=== PATIENT | female | born 1950 | race Caucasian/White ===

== ENCOUNTER → 2020-08-30 19:52 | Outpatient (ROUT) | payer MEDICARE, SELFPAY ==
[2020-08-30 20:06] LABS: Add Manual Diff / Slide Review NO; Basophils Absolute Auto 100 /uL (0-100); Eosinophils Absolute Auto 200 /uL (0-450); Eosinophils Percent Auto 2.9 % (2-4); Hematocrit 40.1 % (36-46); Hemoglobin 13.6 g/dL (12.0-16.0); Lymphocytes Absolute Auto 1600 /uL (1100-4500); Lymphocytes Percent Auto 24.9 % (25-40); Mean Corpuscular HGB Conc 33.9 % (30-36); Mean Corpuscular Hemoglobin 31.9 PG (26-34); Mean Corpuscular Volume 94.1 fL (80-100); Monocytes Absolute Auto 600 /uL (0-900); Monocytes Percent Auto 9.6 % (3-14); Neutrophils Absolute Auto 4000 /uL (1500-7000); Neutrophils Percent Auto 61.6 % (50-75); Platelet Count 294 X10^3/uL (150-400); Red Blood Cell Count 4.27 X10^6/uL (4.0-5.2); Red Cell Distribution Width 12.3 % (11.6-14.8); White Blood Cell Count 6.5 X10^3/uL (4.5-11.0)
[2020-08-30 20:16] LABS: Alanine Aminotransferase 19 IU/L (<35); Albumin 4.3 g/dL (3.5-5.0); Albumin Globulin Ratio 1.7 (1.0-2.8); Alkaline Phosphatase 76 U/L (38-126); Aspartate Aminotransferase 24 IU/L (14-36); BUN Creatinine Ratio 34.3 (6-22); Bilirubin Total 0.4 mg/dL (0.2-1.3); Blood Urea Nitrogen 24 mg/dL (7-17); Calcium 9.6 mg/dL (8.4-10.2); Carbon Dioxide 29 mmol/L (22-32); Chloride 104 mmol/L (98-107); Estimated Glomerular Filt Rate > 60.0 mL/min (>60); Globulin 2.6 g/dL (1.7-4.1); Glucose 95 mg/dL (80-110); HEMOLYSIS < 15 (0-50); Lipase 161 U/L (23-300); Potassium 3.9 mmol/L (3.4-5.1); Sodium 138 mmol/L (137-145); Total Protein 6.9 g/dL (6.3-8.2)
== END ==
PROVIDERS: Visit Provider Student in an Organized Health Care Education/Training Program
DX: R19.5 Other fecal abnormalities (principal); R10.30 Lower abdominal pain, unspecified; E78.00 Pure hypercholesterolemia, unspecified
CPT/HCPCS: 80053; 83690; 85025

== ENCOUNTER → 2020-12-30 09:31 | Outpatient (CLI) | payer MEDICARE, SELFPAY ==
[2020-12-30] MEDS: COVID-19 VACC, Ad26(JANSSEN)/PF 0.5 ML IM (09:42)
== END ==
PROVIDERS: Visit Provider Internal Medicine
DX: Z23 Encounter for immunization (principal)
CPT/HCPCS: 0031A; 91303

== ENCOUNTER → 2021-01-03 14:20 | Outpatient (CLI) | payer MEDICARE, SELFPAY ==
--- NOTE | 2021-01-03 | DI.RAD.S_ITS ---
PROCEDURE: XR ANKLE LT MIN 3V INDICATIONS: Pain in right ankle and joints of right foot TECHNIQUE: 3 views of the ankle were acquired. COMPARISON: None. FINDINGS: Bones: No acute fracture identified. Scattered degenerative subchondral sclerosis and spurring. Tibiotalar joint degeneration with mild joint space narrowing. Chronic fracture deformity of the tibia plantar calcaneal spur. Subchondral lucency involving the lateral talar dome which could reflect degenerative cystic change versus osteochondral defect. Soft tissues: No tibiotalar joint effusion. Achilles tendon appears normal. IMPRESSION: Extensive degenerative changes and posttraumatic sequela as above. If the patient's pain or other symptoms persist, consider further evaluation with MRI Dictated by: Ahmet Martin M.D. on 01/03/2021 at 15:39 Approved by: Ahmet Martin M.D. on 01/03/2021 at 15:41
--- NOTE | 2021-01-03 | DI.RAD.S_ITS ---
PROCEDURE: XR ANKLE RT MIN 3V INDICATIONS: Pain in right ankle and joints of right foot TECHNIQUE: 3 views of the ankle were acquired. COMPARISON: None. FINDINGS: Bones: No fracture. Scattered degenerative subchondral sclerosis and spurring. Severe tibiotalar degenerative joint disease. Chronic appearing also projecting at the tip the lateral malleolus. Soft tissues: No tibiotalar joint effusion. Achilles tendon appears normal. IMPRESSION: Severe tibiotalar joint degeneration. Large chronic appearing ossicle (or remote fracture fragment) projects at the tip of the lateral malleolus. Dictated by: Ahmet Martin M.D. on 01/03/2021 at 15:41 Approved by: Ahmet Martin M.D. on 01/03/2021 at 15:42
== END ==
PROVIDERS: PCP Student in an Organized Health Care Education/Training Program; Referring Provider Student in an Organized Health Care Education/Training Program; Visit Provider Student in an Organized Health Care Education/Training Program
DX: M25.571 Pain in right ankle and joints of right foot (principal); M25.572 Pain in left ankle and joints of left foot; M19.072 Primary osteoarthritis, left ankle and foot; M19.071 Primary osteoarthritis, right ankle and foot; M77.32 Calcaneal spur, left foot; S82.202S Unspecified fracture of shaft of left tibia, sequela
CPT/HCPCS: 73610

== ENCOUNTER → 2021-02-07 10:40 | Outpatient (CLI) | payer MEDICARE, SELFPAY ==
--- NOTE | 2021-02-07 | DI.MG.S_ITS ---
BILATERAL DIGITAL SCREENING MAMMOGRAM 3D/2D WITH CAD: 02/07/2021 CLINICAL: Routine screening. Family history of breast cancer. Comparison is made to exams dated: 04/06/2017 mammogram, 11/30/2015 mammogram, and 09/28/2014 mammogram - [facility]. There are scattered fibroglandular elements in both breasts. Current study was also evaluated with a Computer Aided Detection (CAD) system. No significant masses, calcifications, or other findings are seen in either breast. There has been no significant interval change. IMPRESSION: NEGATIVE There is no mammographic evidence of malignancy. A 1 year screening mammogram is recommended. This exam was interpreted at Station ID: [id number]. NOTE: For mammograms, a report in lay terms will be sent to the patient. Approximately 15% of breast malignancies will not be visualized mammographically. In the management of a palpable breast mass, a negative mammogram must not discourage biopsy of a clinically suspicious lesion. Electronically Signed By: Carroll guthrie/jose:02/07/2021 11:20:38 letter sent: Normal Exam ACR BI-RADS Category 1: Negative 3341F
== END ==
PROVIDERS: PCP Student in an Organized Health Care Education/Training Program; Referring Provider Student in an Organized Health Care Education/Training Program; Visit Provider Student in an Organized Health Care Education/Training Program
DX: Z12.31 Encounter for screening mammogram for malignant neoplasm of breast (principal); Z80.3 Family history of malignant neoplasm of breast
CPT/HCPCS: 77063; 77067

== ENCOUNTER 2021-09-28 14:39 | Emergency (ER) | payer MEDICARE, SELFPAY ==
[2021-09-28 14:48] VITALS: BP 166/95; PULSE 95; RESP 24; TEMP 36.6; O2SAT 100
[2021-09-28 15:13] LABS: COVID19 -Nasal RAPID Negative (Negative)
== END 2021-09-28 18:31 | disposition left against medical advice (07) ==
PROVIDERS: Emergency Provider Emergency Medicine; PCP Student in an Organized Health Care Education/Training Program
DX: Z53.21 Procedure and treatment not carried out due to patient leaving prior to being seen by health care provider (principal); Z20.822 Contact with and (suspected) exposure to COVID-19
CPT/HCPCS: 87635; 99281; C9803

== ENCOUNTER → 2022-01-25 12:14 | Outpatient (CLI) | payer MEDICARE, SELFPAY ==
[2022-01-25 13:36] LABS: Influenza A - CEPHEID Flu A NEGATIVE (NEGATIVE); Influenza B - CEPHEID Flu B NEGATIVE (NEGATIVE)
[2022-01-25 13:48] LABS: COVID-19 CEPHEID PCR (VTM/NP) Negative (Negative)
== END ==
PROVIDERS: PCP Student in an Organized Health Care Education/Training Program; Visit Provider Nurse Practitioner Family
DX: R11.0 Nausea (principal)
CPT/HCPCS: 0240U

== ENCOUNTER → 2022-03-28 12:55 | Outpatient (CLI) | payer MEDICARE, SELFPAY ==
--- NOTE | 2022-03-28 | DI.MG.S_ITS ---
BILATERAL DIGITAL SCREENING MAMMOGRAM 3D/2D WITH CAD: 03/28/2022 CLINICAL: Routine screening. Family history of breast cancer. Comparison is made to exams dated: 02/07/2021 mammogram - [facility], 04/06/2017 mammogram, 08/07/2016 mammogram, and 03/17/2015 mammogram - [facility]. There are scattered fibroglandular elements in both breasts. Current study was also evaluated with a Computer Aided Detection (CAD) system. No significant masses, calcifications, or other findings are seen in either breast. There has been no significant interval change. IMPRESSION: NEGATIVE There is no mammographic evidence of malignancy. A 1 year screening mammogram is recommended. Based on the Tyrer Cuzick model (a risk assessment model) the patient's lifetime risk is 7.6% and her 10 year risk is 4.9%. According to the ACR, ACS, and NCCN guidelines, an annual breast MRI exam along with mammogram is recommended if the patient's lifetime risk is 20% or greater. This exam was interpreted at Station ID: [id number]. NOTE: For mammograms, a report in lay terms will be sent to the patient. Approximately 15% of breast malignancies will not be visualized mammographically. In the management of a palpable breast mass, a negative mammogram must not discourage biopsy of a clinically suspicious lesion. Electronically Signed By: Mathew domínguez/jose:03/28/2022 17:53:24 letter sent: Normal Exam ACR BI-RADS Category 1: Negative 3341F
== END ==
PROVIDERS: PCP Student in an Organized Health Care Education/Training Program; Referring Provider Student in an Organized Health Care Education/Training Program; Visit Provider Student in an Organized Health Care Education/Training Program
DX: Z12.31 Encounter for screening mammogram for malignant neoplasm of breast (principal); Z80.3 Family history of malignant neoplasm of breast
CPT/HCPCS: 77063; 77067

== ENCOUNTER 2023-03-19 12:30 | Outpatient (RCR) | payer MEDICARE, SELFPAY ==
--- NOTE | 2022-12-25 19:56 | PT.OIE ---
Current Diagnoses Presence of right artificial ankle joint (12/25/22) Visit Care Team Role Provider Type Niki Cerda PA-C Family Provider Physician Power Generation Technician Primary Care Provider Specialty: Medical Address: [address] [place] [address], [place], [address] Email: [email or web address] DO Attending Provider Non-Staff Referring Provider Specialty: Orthopedics Address: [address] [place] [address], [place], [address] Email: Physical Therapy Initial Evaluation PT-OP-A Visit Information Start: 12/21/22 18:10 Freq: Status: Active Protocol: Document 12/25/22 11:19 LRN (Rec: 12/25/22 12:32 LRN [id number]) Out-Patient Physical Therapy Visit Information Visit Information Visit Type Initial Evaluation Visit Note Bathroom break to start Visit Start Time 11:21 Visit Stop Time 12:20 Total Visit Minutes 59 Visit Number 1 Evaluation Information Evaluation Date 12/25/22 Precautions Precautions Pt reports she was told no ankle IV/EV. Referral instructions of: modalities, progressive resistance ex's including ecc strengtheing, proprioceptive re-education, avoid excessive plantarflexion /inversion. Awaiting protocol from [facility] in [place] for s/p R ankle replacement and Brostrom lateral ligament repair. PT-OP-B Current Condition Start: 12/21/22 18:10 Freq: Status: Active Protocol: Document 12/25/22 11:19 LRN (Rec: 12/25/22 12:32 LRN [id number]) Current Condition History of Current Condition Onset Date 11/06/22 Current Complaints Constant ache in the R ankle and need to transition from walking boot. History of Current Condition 11/06/22 R ankle replacement and Brostrom lateral ligament repair, at [facility] in [place], [place]. Pt reports spending one night in hospital before discharge home. Pt's R foot has been in a splint/NWBing for 2 weeks and then was casted/NWBing for 2 more weeks before being placed in a walking boot brace . Pt is now 7 weeks post- operation. States she is now supposed to transition to a soft brace but first needs to obtain one. She states she is walking around the house and the yard without an assistive device, and has walked without her walking boot in the house . With the walking boot she can't get up/down from the ground to do gardening very well, stating is doesn't hurt but just difficult. She tolerates ~3 hrs of gardening, before the ankle aches, requiring her to go in to elevate and ice the R ankle. States she is used to being very active with her gardening and horse training, but currently is staying away from the horse for obvious reasons . Future Testing and Treatments Planned Next MD visit: 3 weeks. Treatment Goals Patient/Caregiver Goals Pt is to get back to what she was doing before. Example: get up /don off the ground, strengthen the legs (wasn't exercising before the surgery because of pain). To function better: step in/out of tub with hand hold assist, and stand for showers, walk better to be able to walk up and down her road (1/2 mile = half way down the road), and able tolerate incline ambulation ( driveways). Tolerate gardening for 4-5 hours. Prior Functional Status Baseline Function- ADL's Independent Baseline Function- Mobility Independent Baseline Function- Recreation/Hobbies Working with her horse, requires running or walking fast to get out of the horse's way. Idea is to train the horse to ride. Gardens constantly (kneel, prune trees, goes up/down ladders) Current Functional Impairments (Reported) Functional Limitations- ADL's Independent. Functional Limitations- Mobility/Gait Ambulates with walking boot and antalgic gait without assistive device, independently. R ankle pain with walking. Functional Limitations- Recreation/ Not able to train her horse. Hobbies Not able to garden (kneel, prune trees, taverse up/down ladders) Personal Factors Other Personal Factors That May Effect Lives on [facility], is an Therapy/Recovery active individual who is an avid ad taker, and is wanting to go back to training her horse for riding. PT-OP-C Subjective Start: 12/21/22 18:10 Freq: Status: Active Protocol: Document 12/25/22 11:19 LRN (Rec: 12/25/22 12:32 LRN [id number]) OP-PT Subjective Patient Comments Patient Comments Next MD visit: 3 weeks. States she was told NO R ankle IV/EV ROM to be performed. Patient Questionnaires Foot & Ankle Ability Measure- ADL and Sports FAAM-ADL Score 46 FAAM-ADL Impairment 40 to 59% Impaired (Score 33- 49) FAAM-Sport Score 1 FAAM-Sport Impairment 80 to 99% Impaired (Score 1-5) Lower Extremity Functional Scale LEFS Score 35 LEFS Impairment 40 to 59% Impaired (Score 32- 47) OP-PT Pain Assessment Pain Assessment Grid Paper Pain Assessment Grid Completed Yes Location R ankle Pain Location Details R anterior and lateral ankle Intensity 3 Description Aching,Tightness Frequency Constant Pain Alleviating Factors Cold PT-OP-G Mobility & Gait Start: 12/21/22 18:10 Freq: Status: Active Protocol: Document 12/25/22 11:19 LRN (Rec: 12/25/22 12:32 LRN [id number]) OP Gait Assessment Gait Gait Assistance Required: Independent Distance (Feet) 100 Able to Maintain Weight Bearing Status Yes During Gait Assistive Devices Assistive Device None Orthotic/Prosthetic Devices or Brace: Yes Gait Deviations General Gait Pattern Antalgic,Wide Based Gait Factors Limiting Gait Function Factors Limiting Gait Function Decreased Strength,Limited Range of Motion,Pain,Poor Balance PT-OP-H Neuro Start: 12/21/22 18:10 Freq: Status: Active Protocol: Document 12/25/22 11:19 LRN (Rec: 12/25/22 12:32 LRN [id number]) Sensation Evaluation Gross Sensation Gross Sensation Right LE Impaired Sensation Description Numbness Comments Summary Comments Decreased sensation of R foot along well healed scar ( anterior ankle) and around healing scar on the lateral side of the R foot. Normal sensation on the bottom of the R foot. PT-OP-J Posture/Palpation/Skin Start: 12/21/22 18:10 Freq: Status: Active Protocol: Document 12/25/22 11:19 LRN (Rec: 12/25/22 12:32 LRN [id number]) Posture Evaluation Position Standing L-Spine Posture Decreased Lordosis Shoulder Posture (R) Elevated Pelvis Posture Posterior Tilted,(R) Iliac Crest Superior,(L) ASIS Posterior Weight Distribution Weight Shifted Left Ankle/Foot Posture (L) Neutral,(R) Neutral Foot Arch (L) High Arch,(R) High Arch Comments Posture Comments Bunion bilaterally, Big toe adducted. Palpation Assessment Location R heel Palpation Location R heel Palpation Findings Edema R ankle Palpation Location R ankle joint Palpation Findings Edema,Soft Tissue Tightness, Tenderness Skin Assessment Circumference Measurement L ankle Fig 8 Location L ankle Fig 8 Measurement (Centimeters) 47.5 Comments Ankle is normal in temperature and skin color. R ankle Fig 8 Location R ankle Fig 8 Measurement (Centimeters) 57 Comments Ankle is warm to touch, swollen, skin shiny and red. PT-OP-K Range of Motion Start: 12/21/22 18:10 Freq: Status: Active Protocol: Document 12/25/22 11:19 LRN (Rec: 12/25/22 12:32 LRN [id number]) Knee Goniometric Range of Motion Knee Right Knee ROM WFL Yes Left Knee ROM WFL Yes Ankle and Foot Goniometric Range of Motion Ankle and Foot Right Active Ankle/Foot ROM WFL No Testing Position Supine Plantarflexion 26 Comments Lack 2 deg's DF with knee extended Deferred testing Ankle IV/EV per pt report to not perform side to side movement. Left Active Ankle/Foot ROM WFL Yes Testing Position Supine Dorsiflexion with Knee Extended 18 Plantarflexion 43 Inversion 25 Eversion 10 Toe Range of Motion Toe Right Great Toe Toe ROM WFL No MTP Flexion Active (degrees) 15 MTP Extension Active (degrees) 22 Left Great Toe Toe ROM WFL Yes MTP Flexion Active (degrees) 60 MTP Extension Active (degrees) 52 PT-OP-M Strength Start: 12/21/22 18:10 Freq: Status: Active Protocol: Document 12/25/22 11:19 LRN (Rec: 12/25/22 12:32 LRN [id number]) Knee Strength Knee Manual Muscle Testing Right Flexion (S2) 5 Normal Extension (L3) 5 Normal Left Flexion (S2) 5 Normal Extension (L3) 5 Normal Ankle/Foot Strength Ankle and Foot Manual Muscle Testing Right Comments Deferred due to recent surgery . Pt was able to demonstrate active DF/PF within available ROM. Left Dorsiflexion (L4) 5 Normal Plantarflexion (S1) 5 Normal Inversion 5 Normal Eversion (S1) 5 Normal Toe Strength Toe Manual Muscle Testing Right Great Toe Flexion 4 Good Extension 5 Normal Left Great Toe Flexion 5 Normal Extension 3 Fair PT-OP-Q Treatments Start: 12/21/22 18:10 Freq: Status: Active Protocol: Document 12/25/22 11:19 LRN (Rec: 12/25/22 12:32 LRN [id number]) Therapeutic Exercises Supine Exercises R Big Toe Supine Exercise Name R Big Toe flex/Ext Side right R Ankle PF/DF Supine Exercise Name R Ankle active PF/DF Side right Self-Care/Home Management Treatment Education Patient Education Pain Management Other Education Discussed results of evaluation, goals, and plan of care (POC). Pt agreeable to goals and POC. Educated pt and discussed use of cold pack to R ankle to decrease increased temperature at the ankle. Activities Self-Care/Home Management Activities I/S pt in increase use of cold pack for pain/edema management. I/S and had pt demonstrate R toe/ankle active flex/ extension. PT-OP-T Assessment and Plan Start: 12/21/22 18:10 Freq: Status: Active Protocol: Document 12/25/22 11:19 LRN (Rec: 12/25/22 12:32 LRN [id number]) Physical Therapy Assessment Rehab Potential Rehabilitation Potential Excellent Evaluation Complexity Number of Personal Factors/Comorbidities 1-2 Number of Body Systems Impaired 4 or More Clinical Presentation at Evaluation Evolving Impairments Impairments Activity Tolerance,Balance, Edema,Functional Mobility,Gait ,Pain,Posture,ROM,Sensation, Soft Tissue Mobility,Strength Goals Five Impairment Decreased R big toe ROM and strength Impairment R big toe MTP AROM: ext: 22 deg's, flex: 15 deg's. L big toe MTP AROM: ext: 52 deg's, flex: 60 deg's. R big toe strength: flex: 4/ 5, ext: 5/5 R big toe strength: flex: 4/ 5, ext: 3/5 Short Term Goal (STG) Improve Big toe flex/ext strength to 5/5. STG Duration 02/09/23 Shelter Goal (LTG) Improve R big toe ext AROM to normal with pt able to walk in normal shoes on level surface with a normal gait. LTG Duration 03/23/23 Four Impairment R ankle Edema Impairment Fig 8 ankle msmt: 57 cm R, 47 .5 cm L Short Term Goal (STG) Decrease R ankle edema with pt able to get up /don off the ground with reported less difficulty. STG Duration 02/09/23 Spot Washer Goal (LTG) Decrease R ankle edema with pt able to tolerate gardening for 4-5 hours. LTG Duration 03/23/23 Three Impairment Decreased R ankle strength Impairment R ankle strength: initially not formally tested. Pt able to partially move DF/PF against gravity within available range; therefore rated 2-/5. Short Term Goal (STG) Improve R ankle with pt able to step in/out of tub with hand support, and safely stand for showers. STG Duration 02/09/23 Shelter Goal (LTG) Improve RLE strength to improve pt ability to walk and improve her tolerance to walk up and down her road (1/2 mile = half way down the road) with tolerable pain. LTG Duration 03/23/23 Two Impairment Decreased R ankle AROM Spot Washer Goal (LTG) Pt will be able tolerate incline ambulation (driveways) with tolerable ankle pain. LTG Duration 03/23/23 One Impairment Lacks appropriate self care HEP. Short Term Goal (STG) Pt will be educated in self care edema/pain mangement. STG Duration 01/05/23 Spot Washer Goal (LTG) Pt will be educated in a self care HEP of R ankle ROM and strengthening ex's and general LE strengthening exercises. LTG Duration 03/23/23 Assessment Summary Assessment Pt is a 72 year old active female who presents 7 weeks post op R ankle replacement and Brostrom lateral ligament repair. The pt attends without a rehabilitation protocol but stating she is not to do ankle IV/EV ROM exercises. The pt demonstrates an independent but dysfunctional circumduction type gait pattern of the RLE as expected with her R foot in a walking boot. She does not require an assistive device to ambulate. Without the walking boot the pt is able to stand safely with what appears to be equal weightbearing through the LE' s. She has been walking in her home sometimes without the walking boot and demonstrated a mild antalgic gait without the use of the walking boot. As expected the pt is limited in R ankle ROM and strength as well as restricted mobility and strength of her big toe. The pt reports being generally deconditioned and is looking forward to improving her general strength and endurance and returning to her prior level of function. The pt will benefit from skilled physical therapy to achieve the above stated goals. Physical Therapy Plan Frequency and Duration Frequency of Treatment 2x/Week Plan of Care Start Date 12/25/22 Plan of Care End Date 03/23/23 Therapeutic Interventions Therapeutic Interventions Balance Training,Gait Training ,Home Exercise Program,Manual Therapy,Patient/Caregiver Education,Self-Care/Home Management,Soft Tissue Mobilization,Taping, Therapeutic Activities, Therapeutic Exercises Modalities Cold Pack/Ice Massage,Hot Packs Next Visit Focus/Plan Next Note Type Treatment Note Next Visit Plan Obtain if the referring physician has a R ankle/ lateral ankle repair rehabilitation protocol, otherwise follow referral of: modalities, progressive resistance ex's including ecc strengtheing, proprioceptive re-education. AVOID Excessive PF/IV. Assess stair ambulation, TUG & Functional Test of 2' or 6' walk test or endurance test ( 30 Sec Sit to Stand test). Issue handouts for ankle AROM ex. and self care for edema and pain management. Progress strengthening, and proprioceptive re-education and balance. End CP with LE elevated unless pt choose to ice at home.
--- NOTE | 2023-01-02 16:17 | PT.OTN ---
Current Diagnoses Presence of right artificial ankle joint (01/02/23) Physical Therapy Treatment Note PT-OP-A Visit Information Start: 12/21/22 18:10 Freq: Status: Active Protocol: Document 01/02/23 15:19 LRN (Rec: 01/02/23 16:16 LRN [id number]) Out-Patient Physical Therapy Visit Information Visit Information Visit Type Treatment Note Visit Start Time 15:20 Visit Stop Time 16:10 Total Visit Minutes 50 Visit Number 2 Evaluation Information Evaluation Date 12/25/22 Precautions Precautions Pt reports she was told no ankle IV/EV. Referral instructions of: modalities, progressive resistance ex's including ecc strengtheing, proprioceptive re-education, avoid excessive plantarflexion /inversion. (Referral/protocol from [facility] in [place] for s/p R ankle replacement and Brostrom lateral ligament repair). PT-OP-B Current Condition Start: 12/21/22 18:10 Freq: Status: Active Protocol: Document 12/25/22 11:19 LRN (Rec: 12/25/22 12:32 LRN [id number]) Current Condition History of Current Condition Onset Date 11/06/22 Current Complaints Constant ache in the R ankle and need to transition from walking boot. History of Current Condition 11/06/22 R ankle replacement and Brostrom lateral ligament repair, at [facility] in [place], [place]. Pt reports spending one night in hospital before discharge home. Pt's R foot has been in a splint/NWBing for 2 weeks and then was casted/NWBing for 2 more weeks before being placed in a walking boot brace . Pt is now 7 weeks post- operation. States she is now supposed to transition to a soft brace but first needs to obtain one. She states she is walking around the house and the yard without an assistive device, and has walked without her walking boot in the house . With the walking boot she can't get up/down from the ground to do gardening very well, stating is doesn't hurt but just difficult. She tolerates ~3 hrs of gardening, before the ankle aches, requiring her to go in to elevate and ice the R ankle. States she is used to being very active with her gardening and horse training, but currently is staying away from the horse for obvious reasons . Future Testing and Treatments Planned Next MD visit: 3 weeks. Treatment Goals Patient/Caregiver Goals Pt is to get back to what she was doing before. Example: get up /don off the ground, strengthen the legs (wasn't exercising before the surgery because of pain). To function better: step in/out of tub with hand hold assist, and stand for showers, walk better to be able to walk up and down her road (1/2 mile = half way down the road), and able tolerate incline ambulation ( driveways). Tolerate gardening for 4-5 hours. Prior Functional Status Baseline Function- ADL's Independent Baseline Function- Mobility Independent Baseline Function- Recreation/Hobbies Working with her horse, requires running or walking fast to get out of the horse's way. Idea is to train the horse to ride. Gardens constantly (kneel, prune trees, goes up/down ladders) Current Functional Impairments (Reported) Functional Limitations- ADL's Independent. Functional Limitations- Mobility/Gait Ambulates with walking boot and antalgic gait without assistive device, independently. R ankle pain with walking. Functional Limitations- Recreation/ Not able to train her horse. 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 PT-OP-C Subjective Start: 12/21/22 18:10 Freq: Status: Active Protocol: Document 01/02/23 15:19 LRN (Rec: 01/02/23 16:16 LRN [id number]) OP-PT Subjective Patient Comments Patient Comments Stopped wearing the walking boot a couple days ago per MD' s previous instructions. Will see MD towards end of the month. States the MD office had sent protocol. s/p surgery almost 4 weeks. PT-OP-G Mobility & Gait Start: 12/21/22 18:10 Freq: Status: Active Protocol: Document 12/25/22 11:19 LRN (Rec: 12/25/22 12:32 LRN [id number]) OP Gait Assessment Gait Gait Assistance Required: Independent Distance (Feet) 100 Able to Maintain Weight Bearing Status Yes During Gait Assistive Devices Assistive Device None Orthotic/Prosthetic Devices or Brace: Yes Gait Deviations General Gait Pattern Antalgic,Wide Based Gait Factors Limiting Gait Function Factors Limiting Gait Function Decreased Strength,Limited Range of Motion,Pain,Poor Balance PT-OP-H Neuro Start: 12/21/22 18:10 Freq: Status: Active Protocol: Document 12/25/22 11:19 LRN (Rec: 12/25/22 12:32 LRN [id number]) Sensation Evaluation Gross Sensation Gross Sensation Right LE Impaired Sensation Description Numbness Comments Summary Comments Decreased sensation of R foot along well healed scar ( anterior ankle) and around healing scar on the lateral side of the R foot. Normal sensation on the bottom of the R foot. PT-OP-J Posture/Palpation/Skin Start: 12/21/22 18:10 Freq: Status: Active Protocol: Document 12/25/22 11:19 LRN (Rec: 12/25/22 12:32 LRN [id number]) Posture Evaluation Position Standing L-Spine Posture Decreased Lordosis Shoulder Posture (R) Elevated Pelvis Posture Posterior Tilted,(R) Iliac Crest Superior,(L) ASIS Posterior Weight Distribution Weight Shifted Left Ankle/Foot Posture (L) Neutral,(R) Neutral Foot Arch (L) High Arch,(R) High Arch Comments Posture Comments Bunion bilaterally, Big toe adducted. Palpation Assessment Location R heel Palpation Location R heel Palpation Findings Edema R ankle Palpation Location R ankle joint Palpation Findings Edema,Soft Tissue Tightness, Tenderness Skin Assessment Circumference Measurement L ankle Fig 8 Location L ankle Fig 8 Measurement (Centimeters) 47.5 Comments Ankle is normal in temperature and skin color. R ankle Fig 8 Location R ankle Fig 8 Measurement (Centimeters) 57 Comments Ankle is warm to touch, swollen, skin shiny and red. PT-OP-K Range of Motion Start: 12/21/22 18:10 Freq: Status: Active Protocol: Document 12/25/22 11:19 LRN (Rec: 12/25/22 12:32 LRN [id number]) Knee Goniometric Range of Motion Knee Right Knee ROM WFL Yes Left Knee ROM WFL Yes Ankle and Foot Goniometric Range of Motion Ankle and Foot Right Active Ankle/Foot ROM WFL No Testing Position Supine Plantarflexion 26 Comments Lack 2 deg's DF with knee extended Deferred testing Ankle IV/EV per pt report to not perform side to side movement. Left Active Ankle/Foot ROM WFL Yes Testing Position Supine Dorsiflexion with Knee Extended 18 Plantarflexion 43 Inversion 25 Eversion 10 Toe Range of Motion Toe Right Great Toe Toe ROM WFL No MTP Flexion Active (degrees) 15 MTP Extension Active (degrees) 22 Left Great Toe Toe ROM WFL Yes MTP Flexion Active (degrees) 60 MTP Extension Active (degrees) 52 PT-OP-M Strength Start: 12/21/22 18:10 Freq: Status: Active Protocol: Document 12/25/22 11:19 LRN (Rec: 12/25/22 12:32 LRN [id number]) Knee Strength Knee Manual Muscle Testing Right Flexion (S2) 5 Normal Extension (L3) 5 Normal Left Flexion (S2) 5 Normal Extension (L3) 5 Normal Ankle/Foot Strength Ankle and Foot Manual Muscle Testing Right Comments Deferred due to recent surgery . Pt was able to demonstrate active DF/PF within available ROM. Left Dorsiflexion (L4) 5 Normal Plantarflexion (S1) 5 Normal Inversion 5 Normal Eversion (S1) 5 Normal Toe Strength Toe Manual Muscle Testing Right Great Toe Flexion 4 Good Extension 5 Normal Left Great Toe Flexion 5 Normal Extension 3 Fair PT-OP-Q Treatments Start: 12/21/22 18:10 Freq: Status: Active Protocol: Document 01/02/23 15:19 LRN (Rec: 01/02/23 16:16 LRN [id number]) Therapeutic Exercises Supine Exercises Isometric PF Supine Exercise Name Isometric PF Side right Reps/Minutes 3' Isometric DF Supine Exercise Name Isometric DF Side right Reps/Minutes 3' R Big Toe Supine Exercise Name R Big Toe flex/Ext PROM, AROM Side right Reps/Minutes 2' R Ankle PF/DF Supine Exercise Name R Ankle active PF/DF Side right Reps/Minutes 4' Sitting Exercises Ankle garrett's Sitting Exercise Name DF/PF Isometrics Side right Reps/Minutes 5 SH Comments Extra time to explain ex and pt to perform correctly. Manual Therapy Treatment Soft Tissue Mobilization R foot Body Location R dorsal, medial and lateral foot Mobilization Type Myofascial Release,Strumming Intensity/Depth Superficial Body Position Supine: leg on bolster Self-Care/Home Management Treatment Education Patient Education Home Exercise Program Activities Self-Care/Home Management Activities I/S pt in isometric ankle DF/ PF during sitting ex. PT-OP-T Assessment and Plan Start: 12/21/22 18:10 Freq: Status: Active Protocol: Document 01/02/23 15:19 LRN (Rec: 01/02/23 16:16 LRN [id number]) Physical Therapy Assessment Goals Five Impairment Decreased R big toe ROM and strength Impairment R big toe MTP AROM: ext: 22 deg's, flex: 15 deg's. L big toe MTP AROM: ext: 52 deg's, flex: 60 deg's. R big toe strength: flex: 4/ 5, ext: 5/5 R big toe strength: flex: 4/ 5, ext: 3/5 Short Term Goal (STG) Improve Big toe flex/ext strength to 5/5. STG Duration 02/09/23 [facility] Goal (LTG) Improve R big toe ext AROM to normal with pt able to walk in normal shoes on level surface with a normal gait. LTG Duration 03/23/23 Four Impairment R ankle Edema Impairment Fig 8 ankle msmt: 57 cm R, 47 .5 cm L Short Term Goal (STG) Decrease R ankle edema with pt able to get up /don off the ground with reported less difficulty. STG Duration 02/09/23 [facility] Goal (LTG) Decrease R ankle edema with pt able to tolerate gardening for 4-5 hours. LTG Duration 03/23/23 Three Impairment Decreased R ankle strength Impairment R ankle strength: initially not formally tested. Pt able to partially move DF/PF against gravity within available range; therefore rated 2-/5. Short Term Goal (STG) Improve R ankle with pt able to step in/out of tub with hand support, and safely stand for showers. STG Duration 02/09/23 [facility] Goal (LTG) Improve RLE strength to improve pt ability to walk and improve her tolerance to walk up and down her road (1/2 mile = half way down the road) with tolerable pain. LTG Duration 03/23/23 Two Impairment Decreased R ankle AROM [facility] Goal (LTG) Pt will be able tolerate incline ambulation (driveways) with tolerable ankle pain. LTG Duration 03/23/23 One Impairment Lacks appropriate self care HEP. Short Term Goal (STG) Pt will be educated in self care edema/pain mangement. STG Duration 01/05/23 Training And Development Head Goal (LTG) Pt will be educated in a self care HEP of R ankle ROM and strengthening ex's and general LE strengthening exercises. 01/02/23: I/S pt in R ankle AROM and garrett DF/PF ex. LTG Duration 03/23/23 progressed 01/02/23. Assessment Summary Assessment Pt is 8 weeks and a day s/p R ankle replacement and lateral lig repair. Pt ankle was very swollen with immobile tissue to start. Ended therapy with improved STM with wrinkles in the anterolateral region of the R ankle with active DF. Pt gait antalgic with long R step length compare to LLE. Pt needed specific, constant directions during therapy. Physical Therapy Plan Frequency and Duration Frequency of Treatment 2x/Week Plan of Care Start Date 12/25/22 Plan of Care End Date 03/23/23 Next Visit Focus/Plan Next Note Type Treatment Note Next Visit Plan Follow referral of: modalities , progressive resistance ex's including ecc strengthening, proprioceptive re-education. AVOID Excessive PF/IV. Assess stair ambulation, TUG & Functional Test of 2' or 6' walk test or endurance test ( 30 Sec Sit to Stand test). Issue handouts for ankle AROM ex. and self care for edema and pain management. Progress strengthening, and proprioceptive re-education and balance. End CP with LE elevated unless pt choose to ice at home.
--- NOTE | 2023-01-02 16:33 | PT.OTN ---
Current Diagnoses Presence of right artificial ankle joint (01/02/23) Physical Therapy Treatment Note PT-OP-A Visit Information Start: 12/21/22 18:10 Freq: Status: Active Protocol: Document 01/02/23 15:19 LRN (Rec: 01/02/23 16:16 LRN [id number]) Out-Patient Physical Therapy Visit Information Visit Information Visit Type Treatment Note Visit Start Time 15:20 Visit Stop Time 16:10 Total Visit Minutes 50 Visit Number 2 Evaluation Information Evaluation Date 12/25/22 Precautions Precautions Pt reports she was told no ankle IV/EV. Referral instructions of: modalities, progressive resistance ex's including ecc strengtheing, proprioceptive re-education, avoid excessive plantarflexion /inversion. (Referral/protocol from [facility] in [place] for s/p R ankle replacement and Brostrom lateral ligament repair). PT-OP-B Current Condition Start: 12/21/22 18:10 Freq: Status: Active Protocol: Document 12/25/22 11:19 LRN (Rec: 12/25/22 12:32 LRN [id number]) Current Condition History of Current Condition Onset Date 11/06/22 Current Complaints Constant ache in the R ankle and need to transition from walking boot. History of Current Condition 11/06/22 R ankle replacement and Brostrom lateral ligament repair, at [facility] in [place], [place]. Pt reports spending one night in hospital before discharge home. Pt's R foot has been in a splint/NWBing for 2 weeks and then was casted/NWBing for 2 more weeks before being placed in a walking boot brace . Pt is now 7 weeks post- operation. States she is now supposed to transition to a soft brace but first needs to obtain one. She states she is walking around the house and the yard without an assistive device, and has walked without her walking boot in the house . With the walking boot she can't get up/down from the ground to do gardening very well, stating is doesn't hurt but just difficult. She tolerates ~3 hrs of gardening, before the ankle aches, requiring her to go in to elevate and ice the R ankle. States she is used to being very active with her gardening and horse training, but currently is staying away from the horse for obvious reasons . Future Testing and Treatments Planned Next MD visit: 3 weeks. Treatment Goals Patient/Caregiver Goals Pt is to get back to what she was doing before. Example: get up /don off the ground, strengthen the legs (wasn't exercising before the surgery because of pain). To function better: step in/out of tub with hand hold assist, and stand for showers, walk better to be able to walk up and down her road (1/2 mile = half way down the road), and able tolerate incline ambulation ( driveways). Tolerate gardening for 4-5 hours. Prior Functional Status Baseline Function- ADL's Independent Baseline Function- Mobility Independent Baseline Function- Recreation/Hobbies Working with her horse, requires running or walking fast to get out of the horse's way. Idea is to train the horse to ride. Gardens constantly (kneel, prune trees, goes up/down ladders) Current Functional Impairments (Reported) Functional Limitations- ADL's Independent. Functional Limitations- Mobility/Gait Ambulates with walking boot and antalgic gait without assistive device, independently. R ankle pain with walking. Functional Limitations- Recreation/ Not able to train her horse. 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 PT-OP-C Subjective Start: 12/21/22 18:10 Freq: Status: Active Protocol: Document 01/02/23 15:19 LRN (Rec: 01/02/23 16:16 LRN [id number]) OP-PT Subjective Patient Comments Patient Comments Stopped wearing the walking boot a couple days ago per MD' s previous instructions. Will see MD towards end of the month. States the MD office had sent protocol. s/p surgery almost 4 weeks. PT-OP-G Mobility & Gait Start: 12/21/22 18:10 Freq: Status: Active Protocol: Document 12/25/22 11:19 LRN (Rec: 12/25/22 12:32 LRN [id number]) OP Gait Assessment Gait Gait Assistance Required: Independent Distance (Feet) 100 Able to Maintain Weight Bearing Status Yes During Gait Assistive Devices Assistive Device None Orthotic/Prosthetic Devices or Brace: Yes Gait Deviations General Gait Pattern Antalgic,Wide Based Gait Factors Limiting Gait Function Factors Limiting Gait Function Decreased Strength,Limited Range of Motion,Pain,Poor Balance PT-OP-H Neuro Start: 12/21/22 18:10 Freq: Status: Active Protocol: Document 12/25/22 11:19 LRN (Rec: 12/25/22 12:32 LRN [id number]) Sensation Evaluation Gross Sensation Gross Sensation Right LE Impaired Sensation Description Numbness Comments Summary Comments Decreased sensation of R foot along well healed scar ( anterior ankle) and around healing scar on the lateral side of the R foot. Normal sensation on the bottom of the R foot. PT-OP-J Posture/Palpation/Skin Start: 12/21/22 18:10 Freq: Status: Active Protocol: Document 12/25/22 11:19 LRN (Rec: 12/25/22 12:32 LRN [id number]) Posture Evaluation Position Standing L-Spine Posture Decreased Lordosis Shoulder Posture (R) Elevated Pelvis Posture Posterior Tilted,(R) Iliac Crest Superior,(L) ASIS Posterior Weight Distribution Weight Shifted Left Ankle/Foot Posture (L) Neutral,(R) Neutral Foot Arch (L) High Arch,(R) High Arch Comments Posture Comments Bunion bilaterally, Big toe adducted. Palpation Assessment Location R heel Palpation Location R heel Palpation Findings Edema R ankle Palpation Location R ankle joint Palpation Findings Edema,Soft Tissue Tightness, Tenderness Skin Assessment Circumference Measurement L ankle Fig 8 Location L ankle Fig 8 Measurement (Centimeters) 47.5 Comments Ankle is normal in temperature and skin color. R ankle Fig 8 Location R ankle Fig 8 Measurement (Centimeters) 57 Comments Ankle is warm to touch, swollen, skin shiny and red. PT-OP-K Range of Motion Start: 12/21/22 18:10 Freq: Status: Active Protocol: Document 12/25/22 11:19 LRN (Rec: 12/25/22 12:32 LRN [id number]) Knee Goniometric Range of Motion Knee Right Knee ROM WFL Yes Left Knee ROM WFL Yes Ankle and Foot Goniometric Range of Motion Ankle and Foot Right Active Ankle/Foot ROM WFL No Testing Position Supine Plantarflexion 26 Comments Lack 2 deg's DF with knee extended Deferred testing Ankle IV/EV per pt report to not perform side to side movement. Left Active Ankle/Foot ROM WFL Yes Testing Position Supine Dorsiflexion with Knee Extended 18 Plantarflexion 43 Inversion 25 Eversion 10 Toe Range of Motion Toe Right Great Toe Toe ROM WFL No MTP Flexion Active (degrees) 15 MTP Extension Active (degrees) 22 Left Great Toe Toe ROM WFL Yes MTP Flexion Active (degrees) 60 MTP Extension Active (degrees) 52 PT-OP-M Strength Start: 12/21/22 18:10 Freq: Status: Active Protocol: Document 12/25/22 11:19 LRN (Rec: 12/25/22 12:32 LRN [id number]) Knee Strength Knee Manual Muscle Testing Right Flexion (S2) 5 Normal Extension (L3) 5 Normal Left Flexion (S2) 5 Normal Extension (L3) 5 Normal Ankle/Foot Strength Ankle and Foot Manual Muscle Testing Right Comments Deferred due to recent surgery . Pt was able to demonstrate active DF/PF within available ROM. Left Dorsiflexion (L4) 5 Normal Plantarflexion (S1) 5 Normal Inversion 5 Normal Eversion (S1) 5 Normal Toe Strength Toe Manual Muscle Testing Right Great Toe Flexion 4 Good Extension 5 Normal Left Great Toe Flexion 5 Normal Extension 3 Fair PT-OP-Q Treatments Start: 12/21/22 18:10 Freq: Status: Active Protocol: Document 01/02/23 15:19 LRN (Rec: 01/02/23 16:16 LRN [id number]) Therapeutic Exercises Supine Exercises Isometric PF Supine Exercise Name Isometric PF Side right Reps/Minutes 3' Isometric DF Supine Exercise Name Isometric DF Side right Reps/Minutes 3' R Big Toe Supine Exercise Name R Big Toe flex/Ext PROM, AROM Side right Reps/Minutes 2' R Ankle PF/DF Supine Exercise Name R Ankle active PF/DF Side right Reps/Minutes 4' Sitting Exercises Ankle garrett's Sitting Exercise Name DF/PF Isometrics Side right Reps/Minutes 5 SH Comments Extra time to explain ex and pt to perform correctly. Manual Therapy Treatment Soft Tissue Mobilization R foot Body Location R dorsal, medial and lateral foot Mobilization Type Myofascial Release,Strumming Intensity/Depth Superficial Body Position Supine: leg on bolster Self-Care/Home Management Treatment Education Patient Education Home Exercise Program Activities Self-Care/Home Management Activities I/S pt in isometric ankle DF/ PF during sitting ex. PT-OP-R Modalities Start: 12/21/22 18:10 Freq: Status: Active Protocol: Document 01/02/23 15:19 LRN (Rec: 01/02/23 16:33 LRN [id number]) Hot Pack/Cold Pack Treatment Cold Pack Location R ankle Treatment Duration (minutes) 10 Patient Tolerance Good Comments Supine with RLE on bolster PT-OP-T Assessment and Plan Start: 12/21/22 18:10 Freq: Status: Active Protocol: Document 01/02/23 15:19 LRN (Rec: 01/02/23 16:16 LRN [id number]) Physical Therapy Assessment Goals Five Impairment Decreased R big toe ROM and strength Impairment R big toe MTP AROM: ext: 22 deg's, flex: 15 deg's. L big toe MTP AROM: ext: 52 deg's, flex: 60 deg's. R big toe strength: flex: 4/ 5, ext: 5/5 R big toe strength: flex: 4/ 5, ext: 3/5 Short Term Goal (STG) Improve Big toe flex/ext strength to 5/5. STG Duration 02/09/23 [employer] Goal (LTG) Improve R big toe ext AROM to normal with pt able to walk in normal shoes on level surface with a normal gait. LTG Duration 03/23/23 Four Impairment R ankle Edema Impairment Fig 8 ankle msmt: 57 cm R, 47 .5 cm L Short Term Goal (STG) Decrease R ankle edema with pt able to get up /don off the ground with reported less difficulty. STG Duration 02/09/23 [employer] Goal (LTG) Decrease R ankle edema with pt able to tolerate gardening for 4-5 hours. LTG Duration 03/23/23 Three Impairment Decreased R ankle strength Impairment R ankle strength: initially not formally tested. Pt able to partially move DF/PF against gravity within available range; therefore rated 2-/5. Short Term Goal (STG) Improve R ankle with pt able to step in/out of tub with hand support, and safely stand for showers. STG Duration 02/09/23 [employer] Goal (LTG) Improve RLE strength to improve pt ability to walk and improve her tolerance to walk up and down her road (1/2 mile = half way down the road) with tolerable pain. LTG Duration 03/23/23 Two Impairment Decreased R ankle AROM [facility] Goal (LTG) Pt will be able tolerate incline ambulation (driveways) with tolerable ankle pain. LTG Duration 03/23/23 One Impairment Lacks appropriate self care HEP. Short Term Goal (STG) Pt will be educated in self care edema/pain mangement. STG Duration 01/05/23 [employer] Goal (LTG) Pt will be educated in a self care HEP of R ankle ROM and strengthening ex's and general LE strengthening exercises. 01/02/23: I/S pt in R ankle AROM and garrett DF/PF ex. LTG Duration 03/23/23 progressed 01/02/23. Assessment Summary Assessment Pt is 8 weeks and a day s/p R ankle replacement and lateral lig repair. Pt ankle was very swollen with immobile tissue to start. Ended therapy with improved STM with wrinkles in the anterolateral region of the R ankle with active DF. Pt gait antalgic with long R step length compare to LLE. Pt needed specific, constant directions during therapy. Physical Therapy Plan Frequency and Duration Frequency of Treatment 2x/Week Plan of Care Start Date 12/25/22 Plan of Care End Date 03/23/23 Next Visit Focus/Plan Next Note Type Treatment Note Next Visit Plan Follow referral of: modalities , progressive resistance ex's including ecc strengthening, proprioceptive re-education. AVOID Excessive PF/IV. Assess stair ambulation, TUG & Functional Test of 2' or 6' walk test or endurance test ( 30 Sec Sit to Stand test). Issue handouts for ankle AROM ex. and self care for edema and pain management. Progress strengthening, and proprioceptive re-education and balance. End CP with LE elevated unless pt choose to ice at home.
--- NOTE | 2023-01-05 15:53 | PT.OTN ---
Current Diagnoses Presence of right artificial ankle joint (01/05/23) Physical Therapy Treatment Note PT-OP-A Visit Information Start: 12/21/22 18:10 Freq: Status: Active Protocol: Document 01/05/23 14:33 NBM (Rec: 01/05/23 16:47 NBM [id number]) Out-Patient Physical Therapy Visit Information Visit Information Visit Type Treatment Note Visit Start Time 14:34 Visit Stop Time 15:15 Total Visit Minutes 41 Visit Number 3 Number of CARDIAC NURSE PRACTITIONER Visits 1 Evaluation Information Evaluation Date 12/25/22 Precautions Precautions Pt reports she was told no ankle IV/EV. Referral instructions of: modalities, progressive resistance ex's including ecc strengtheing, proprioceptive re-education, avoid excessive plantarflexion /inversion. (Referral/protocol from [facility] in [place] for s/p R ankle replacement and Brostrom lateral ligament repair). PT-OP-B Current Condition Start: 12/21/22 18:10 Freq: Status: Active Protocol: Document 12/25/22 11:19 LRN (Rec: 12/25/22 12:32 LRN [id number]) Current Condition History of Current Condition Onset Date 11/06/22 Current Complaints Constant ache in the R ankle and need to transition from walking boot. History of Current Condition 11/06/22 R ankle replacement and Brostrom lateral ligament repair, at [facility] in [place], [place]. Pt reports spending one night in hospital before discharge home. Pt's R foot has been in a splint/NWBing for 2 weeks and then was casted/NWBing for 2 more weeks before being placed in a walking boot brace . Pt is now 7 weeks post- operation. States she is now supposed to transition to a soft brace but first needs to obtain one. She states she is walking around the house and the yard without an assistive device, and has walked without her walking boot in the house . With the walking boot she can't get up/down from the ground to do gardening very well, stating is doesn't hurt but just difficult. She tolerates ~3 hrs of gardening, before the ankle aches, requiring her to go in to elevate and ice the R ankle. States she is used to being very active with her gardening and horse training, but currently is staying away from the horse for obvious reasons . Future Testing and Treatments Planned Next MD visit: 3 weeks. Treatment Goals Patient/Caregiver Goals Pt is to get back to what she was doing before. Example: get up /don off the ground, strengthen the legs (wasn't exercising before the surgery because of pain). To function better: step in/out of tub with hand hold assist, and stand for showers, walk better to be able to walk up and down her road (1/2 mile = half way down the road), and able tolerate incline ambulation ( driveways). Tolerate gardening for 4-5 hours. Prior Functional Status Baseline Function- ADL's Independent Baseline Function- Mobility Independent Baseline Function- Recreation/Hobbies Working with her horse, requires running or walking fast to get out of the horse's way. Idea is to train the horse to ride. Gardens constantly (kneel, prune trees, goes up/down ladders) Current Functional Impairments (Reported) Functional Limitations- ADL's Independent. Functional Limitations- Mobility/Gait Ambulates with walking boot and antalgic gait without assistive device, independently. R ankle pain with walking. Functional Limitations- Recreation/ Not able to train her horse. Hobbies Not able to garden (kneel, prune trees, taverse up/down ladders) Personal Factors Other Personal Factors That May Effect Lives on [facility], is an Therapy/Recovery active individual who is an avid sock turner, and is wanting to go back to training her horse for riding. PT-OP-C Subjective Start: 12/21/22 18:10 Freq: Status: Active Protocol: Document 01/05/23 14:33 NBM (Rec: 01/05/23 16:47 [facility] [id number]) OP-PT Subjective Patient Comments Patient Comments Pt reports her R foot is sore because she was outside a lot this morning gardening and probably overdid it. She arrives in walking boot stating she misplaced her smaller soft brace a couple of days ago. She iced it for a half hour but it still seemed swollen after. PT-OP-G Mobility & Gait Start: 12/21/22 18:10 Freq: Status: Active Protocol: Document 12/25/22 11:19 LRN (Rec: 12/25/22 12:32 LRN [id number]) OP Gait Assessment Gait Gait Assistance Required: Independent Distance (Feet) 100 Able to Maintain Weight Bearing Status Yes During Gait Assistive Devices Assistive Device None Orthotic/Prosthetic Devices or Brace: Yes Gait Deviations General Gait Pattern Antalgic,Wide Based Gait Factors Limiting Gait Function Factors Limiting Gait Function Decreased Strength,Limited Range of Motion,Pain,Poor Balance PT-OP-H Neuro Start: 12/21/22 18:10 Freq: Status: Active Protocol: Document 12/25/22 11:19 LRN (Rec: 12/25/22 12:32 LRN [id number]) Sensation Evaluation Gross Sensation Gross Sensation Right LE Impaired Sensation Description Numbness Comments Summary Comments Decreased sensation of R foot along well healed scar ( anterior ankle) and around healing scar on the lateral side of the R foot. Normal sensation on the bottom of the R foot. PT-OP-J Posture/Palpation/Skin Start: 12/21/22 18:10 Freq: Status: Active Protocol: Document 12/25/22 11:19 LRN (Rec: 12/25/22 12:32 LRN [id number]) Posture Evaluation Position Standing L-Spine Posture Decreased Lordosis Shoulder Posture (R) Elevated Pelvis Posture Posterior Tilted,(R) Iliac Crest Superior,(L) ASIS Posterior Weight Distribution Weight Shifted Left Ankle/Foot Posture (L) Neutral,(R) Neutral Foot Arch (L) High Arch,(R) High Arch Comments Posture Comments Bunion bilaterally, Big toe adducted. Palpation Assessment Location R heel Palpation Location R heel Palpation Findings Edema R ankle Palpation Location R ankle joint Palpation Findings Edema,Soft Tissue Tightness, Tenderness Skin Assessment Circumference Measurement L ankle Fig 8 Location L ankle Fig 8 Measurement (Centimeters) 47.5 Comments Ankle is normal in temperature and skin color. R ankle Fig 8 Location R ankle Fig 8 Measurement (Centimeters) 57 Comments Ankle is warm to touch, swollen, skin shiny and red. PT-OP-K Range of Motion Start: 12/21/22 18:10 Freq: Status: Active Protocol: Document 12/25/22 11:19 LRN (Rec: 12/25/22 12:32 N [id number]) Knee Goniometric Range of Motion Knee Right Knee ROM WFL Yes Left Knee ROM WFL Yes Ankle and Foot Goniometric Range of Motion Ankle and Foot Right Active Ankle/Foot ROM WFL No Testing Position Supine Plantarflexion 26 Comments Lack 2 deg's DF with knee extended Deferred testing Ankle IV/EV per pt report to not perform side to side movement. Left Active Ankle/Foot ROM WFL Yes Testing Position Supine Dorsiflexion with Knee Extended 18 Plantarflexion 43 Inversion 25 Eversion 10 Toe Range of Motion Toe Right Great Toe Toe ROM WFL No MTP Flexion Active (degrees) 15 MTP Extension Active (degrees) 22 Left Great Toe Toe ROM WFL Yes MTP Flexion Active (degrees) 60 MTP Extension Active (degrees) 52 PT-OP-M Strength Start: 12/21/22 18:10 Freq: Status: Active Protocol: Document 12/25/22 11:19 LRN (Rec: 12/25/22 12:32 LRN [id number]) Knee Strength Knee Manual Muscle Testing Right Flexion (S2) 5 Normal Extension (L3) 5 Normal Left Flexion (S2) 5 Normal Extension (L3) 5 Normal Ankle/Foot Strength Ankle and Foot Manual Muscle Testing Right Comments Deferred due to recent surgery . Pt was able to demonstrate active DF/PF within available ROM. Left Dorsiflexion (L4) 5 Normal Plantarflexion (S1) 5 Normal Inversion 5 Normal Eversion (S1) 5 Normal Toe Strength Toe Manual Muscle Testing Right Great Toe Flexion 4 Good Extension 5 Normal Left Great Toe Flexion 5 Normal Extension 3 Fair PT-OP-Q Treatments Start: 12/21/22 18:10 Freq: Status: Active Protocol: Document 01/05/23 14:33 NBM (Rec: 01/05/23 16:47 NBM [id number]) Cardio Equipment Recumbent Bicycle Duration (Minutes) 5 Resistance 1 Seat Position 2 Other cues for RLE alignment, push through heels Therapeutic Exercises Supine Exercises Isometric IV/EV Supine Exercise Name isometric inverstion/eversion Side right Reps/Minutes 10 x 5 SH Comments added to HEP Isometric PF Supine Exercise Name Isometric PF Side right Reps/Minutes 3' Comments HEP Isometric DF Supine Exercise Name Isometric DF Side right Reps/Minutes 3' Comments HEP R Big Toe Supine Exercise Name R Big Toe flex/Ext PROM, AROM Side right Reps/Minutes 2' R Ankle PF/DF Supine Exercise Name R Ankle active PF/DF Side right Reps/Minutes 4' Self-Care/Home Management Treatment Education Patient Education Home Exercise Program,Pain Management,Safety Other Education Instructed pt in RICE and contrast bath for edema and pain management - Handouts given. Added to HEP: 4-way ankle isometrics - Handout given. PT-OP-R Modalities Start: 12/21/22 18:10 Freq: Status: Active Protocol: Document 01/02/23 15:19 LRN (Rec: 01/02/23 16:33 LRN [id number]) Hot Pack/Cold Pack Treatment Cold Pack Location R ankle Treatment Duration (minutes) 10 Patient Tolerance Good Comments Supine with RLE on bolster PT-OP-T Assessment and Plan Start: 12/21/22 18:10 Freq: Status: Active Protocol: Document 01/05/23 14:33 NBM (Rec: 01/05/23 16:47 NBM [id number]) Physical Therapy Assessment Impairments Impairments Activity Tolerance,Balance, Edema,Functional Mobility,Gait ,Pain,Posture,ROM,Sensation, Soft Tissue Mobility,Strength Goals Five Impairment Decreased R big toe ROM and strength Impairment R big toe MTP AROM: ext: 22 deg's, flex: 15 deg's. L big toe MTP AROM: ext: 52 deg's, flex: 60 deg's. R big toe strength: flex: 4/ 5, ext: 5/5 R big toe strength: flex: 4/ 5, ext: 3/5 Short Term Goal (STG) Improve Big toe flex/ext strength to 5/5. STG Duration 02/09/23 Mcfp Goal (LTG) Improve R big toe ext AROM to normal with pt able to walk in normal shoes on level surface with a normal gait. LTG Duration 03/23/23 Four Impairment R ankle Edema Impairment Fig 8 ankle msmt: 57 cm R, 47 .5 cm L Short Term Goal (STG) Decrease R ankle edema with pt able to get up /don off the ground with reported less difficulty. STG Duration 02/09/23 Plant Tender Goal (LTG) Decrease R ankle edema with pt able to tolerate gardening for 4-5 hours. LTG Duration 03/23/23 Three Impairment Decreased R ankle strength Impairment R ankle strength: initially not formally tested. Pt able to partially move DF/PF against gravity within available range; therefore rated 2-/5. Short Term Goal (STG) Improve R ankle with pt able to step in/out of tub with hand support, and safely stand for showers. STG Duration 02/09/23 Plant Tender Goal (LTG) Improve RLE strength to improve pt ability to walk and improve her tolerance to walk up and down her road (1/2 mile = half way down the road) with tolerable pain. LTG Duration 03/23/23 Two Impairment Decreased R ankle AROM Mcfp Goal (LTG) Pt will be able tolerate incline ambulation (driveways) with tolerable ankle pain. LTG Duration 03/23/23 One Impairment Lacks appropriate self care HEP. Short Term Goal (STG) Pt will be educated in self care edema/pain mangement. STG Duration 01/05/23 Mcfp Goal (LTG) Pt will be educated in a self care HEP of R ankle ROM and strengthening ex's and general LE strengthening exercises. 01/02/23: I/S pt in R ankle AROM and garrett DF/PF ex. 01/05/23: I/S pt in RICE, Contrast bath, and 4-way ankle isometrics - HO given. LTG Duration 03/23/23 progressed 01/02/23. Assessment Summary Assessment Yaima presents with walking boot due to losing her smaller soft brace and has increased R foot soreness today. Treatment focus on HEP review and education for edema and pain management. She requires cues with recumbent bicycle for lower extremity alignment and to push through her heels. Instructed pt in RICE, Contrast bath, and 4-way ankle isometrics - handouts given. Physical Therapy Plan Frequency and Duration Frequency of Treatment 2x/Week Plan of Care Start Date 12/25/22 Plan of Care End Date 03/23/23 Therapeutic Interventions Therapeutic Interventions Balance Training,Gait Training ,Home Exercise Program,Manual Therapy,Patient/Caregiver Education,Self-Care/Home Management,Soft Tissue Mobilization,Taping, Therapeutic Activities, Therapeutic Exercises Modalities Cold Pack/Ice Massage,Hot Packs Next Visit Focus/Plan Next Note Type Treatment Note Next Visit Plan Follow referral of: modalities , progressive resistance ex's including ecc strengthening, proprioceptive re-education. AVOID Excessive PF/IV. Assess stair ambulation, TUG & Functional Test of 2' or 6' walk test or endurance test ( 30 Sec Sit to Stand test). Progress strengthening, and proprioceptive re-education and balance. End CP with LE elevated unless pt choose to ice at home.
--- NOTE | 2023-01-08 16:03 | PT.OTN ---
Current Diagnoses Presence of right artificial ankle joint (01/08/23) Physical Therapy Treatment Note PT-OP-A Visit Information Start: 12/21/22 18:10 Freq: Status: Active Protocol: Document 01/08/23 13:50 LRN (Rec: 01/08/23 14:36 LRN [id number]) Out-Patient Physical Therapy Visit Information Visit Information Visit Type Treatment Note Visit Start Time 13:50 Visit Stop Time 14:30 Total Visit Minutes 50 Visit Number 4 Evaluation Information Evaluation Date 12/25/22 Precautions Precautions Pt reports she was told no ankle IV/EV. Referral instructions of: modalities, progressive resistance ex's including ecc strengtheing, proprioceptive re-education, avoid excessive plantarflexion /inversion. (Referral/protocol from [facility] in [place] for s/p R ankle replacement and Brostrom lateral ligament repair). PT-OP-B Current Condition Start: 12/21/22 18:10 Freq: Status: Active Protocol: Document 12/25/22 11:19 LRN (Rec: 12/25/22 12:32 LRN [id number]) Current Condition History of Current Condition Onset Date 11/06/22 Current Complaints Constant ache in the R ankle and need to transition from walking boot. History of Current Condition 11/06/22 R ankle replacement and Brostrom lateral ligament repair, at [facility] in [place], [place]. Pt reports spending one night in hospital before discharge home. Pt's R foot has been in a splint/NWBing for 2 weeks and then was casted/NWBing for 2 more weeks before being placed in a walking boot brace . Pt is now 7 weeks post- operation. States she is now supposed to transition to a soft brace but first needs to obtain one. She states she is walking around the house and the yard without an assistive device, and has walked without her walking boot in the house . With the walking boot she can't get up/down from the ground to do gardening very well, stating is doesn't hurt but just difficult. She tolerates ~3 hrs of gardening, before the ankle aches, requiring her to go in to elevate and ice the R ankle. States she is used to being very active with her gardening and horse training, but currently is staying away from the horse for obvious reasons . Future Testing and Treatments Planned Next MD visit: 3 weeks. Treatment Goals Patient/Caregiver Goals Pt is to get back to what she was doing before. Example: get up /don off the ground, strengthen the legs (wasn't exercising before the surgery because of pain). To function better: step in/out of tub with hand hold assist, and stand for showers, walk better to be able to walk up and down her road (1/2 mile = half way down the road), and able tolerate incline ambulation ( driveways). Tolerate gardening for 4-5 hours. Prior Functional Status Baseline Function- ADL's Independent Baseline Function- Mobility Independent Baseline Function- Recreation/Hobbies Working with her horse, requires running or walking fast to get out of the horse's way. Idea is to train the horse to ride. Gardens constantly (kneel, prune trees, goes up/down ladders) Current Functional Impairments (Reported) Functional Limitations- ADL's Independent. Functional Limitations- Mobility/Gait Ambulates with walking boot and antalgic gait without assistive device, independently. R ankle pain with walking. Functional Limitations- Recreation/ Not able to train her horse. Hobbies Not able to garden (kneel, prune trees, taverse up/down ladders) Personal Factors Other Personal Factors That May Effect [place] 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 PT-OP-C Subjective Start: 12/21/22 18:10 Freq: Status: Active Protocol: Document 01/08/23 13:50 LRN (Rec: 01/08/23 14:36 LRN [id number]) OP-PT Subjective Patient Comments Patient Comments States soft brace is to come today. States her ankle is sore this morning because did ex's and ankle is swollen from ex this morning. States she has been doing her ex's. Next MD visit 01/15/23. PT-OP-G Mobility & Gait Start: 12/21/22 18:10 Freq: Status: Active Protocol: Document 12/25/22 11:19 LRN (Rec: 12/25/22 12:32 LRN [id number]) OP Gait Assessment Gait Gait Assistance Required: Independent Distance (Feet) 100 Able to Maintain Weight Bearing Status Yes During Gait Assistive Devices Assistive Device None Orthotic/Prosthetic Devices or Brace: Yes Gait Deviations General Gait Pattern Antalgic,Wide Based Gait Factors Limiting Gait Function Factors Limiting Gait Function Decreased Strength,Limited Range of Motion,Pain,Poor Balance PT-OP-H Neuro Start: 12/21/22 18:10 Freq: Status: Active Protocol: Document 12/25/22 11:19 LRN (Rec: 12/25/22 12:32 LRN [id number]) Sensation Evaluation Gross Sensation Gross Sensation Right LE Impaired Sensation Description Numbness Comments Summary Comments Decreased sensation of R foot along well healed scar ( anterior ankle) and around healing scar on the lateral side of the R foot. Normal sensation on the bottom of the R foot. PT-OP-J Posture/Palpation/Skin Start: 12/21/22 18:10 Freq: Status: Active Protocol: Document 12/25/22 11:19 LRN (Rec: 12/25/22 12:32 LRN [id number]) Posture Evaluation Position Standing L-Spine Posture Decreased Lordosis Shoulder Posture (R) Elevated Pelvis Posture Posterior Tilted,(R) Iliac Crest Superior,(L) ASIS Posterior Weight Distribution Weight Shifted Left Ankle/Foot Posture (L) Neutral,(R) Neutral Foot Arch (L) High Arch,(R) High Arch Comments Posture Comments Bunion bilaterally, Big toe adducted. Palpation Assessment Location R heel Palpation Location R heel Palpation Findings Edema R ankle Palpation Location R ankle joint Palpation Findings Edema,Soft Tissue Tightness, Tenderness Skin Assessment Circumference Measurement L ankle Fig 8 Location L ankle Fig 8 Measurement (Centimeters) 47.5 Comments Ankle is normal in temperature and skin color. R ankle Fig 8 Location R ankle Fig 8 Measurement (Centimeters) 57 Comments Ankle is warm to touch, swollen, skin shiny and red. PT-OP-K Range of Motion Start: 12/21/22 18:10 Freq: Status: Active Protocol: Document 12/25/22 11:19 LRN (Rec: 12/25/22 12:32 LRN [id number]) Knee Goniometric Range of Motion Knee Right Knee ROM WFL Yes Left Knee ROM WFL Yes Ankle and Foot Goniometric Range of Motion Ankle and Foot Right Active Ankle/Foot ROM WFL No Testing Position Supine Plantarflexion 26 Comments Lack 2 deg's DF with knee extended Deferred testing Ankle IV/EV per pt report to not perform side to side movement. Left Active Ankle/Foot ROM WFL Yes Testing Position Supine Dorsiflexion with Knee Extended 18 Plantarflexion 43 Inversion 25 Eversion 10 Toe Range of Motion Toe Right Great Toe Toe ROM WFL No MTP Flexion Active (degrees) 15 MTP Extension Active (degrees) 22 Left Great Toe Toe ROM WFL Yes MTP Flexion Active (degrees) 60 MTP Extension Active (degrees) 52 PT-OP-M Strength Start: 12/21/22 18:10 Freq: Status: Active Protocol: Document 12/25/22 11:19 LRN (Rec: 12/25/22 12:32 LRN [id number]) Knee Strength Knee Manual Muscle Testing Right Flexion (S2) 5 Normal Extension (L3) 5 Normal Left Flexion (S2) 5 Normal Extension (L3) 5 Normal Ankle/Foot Strength Ankle and Foot Manual Muscle Testing Right Comments Deferred due to recent surgery . Pt was able to demonstrate active DF/PF within available ROM. Left Dorsiflexion (L4) 5 Normal Plantarflexion (S1) 5 Normal Inversion 5 Normal Eversion (S1) 5 Normal Toe Strength Toe Manual Muscle Testing Right Great Toe Flexion 4 Good Extension 5 Normal Left Great Toe Flexion 5 Normal Extension 3 Fair PT-OP-Q Treatments Start: 12/21/22 18:10 Freq: Status: Active Protocol: Document 01/08/23 13:50 LRN (Rec: 01/08/23 14:36 LRN [id number]) Therapeutic Exercises Supine Exercises Isometric DF Supine Exercise Name Ankle DF isometrick Side right Equipment Used Bolster Reps/Minutes 2' Sitting Exercises Ankle garrett's Sitting Exercise Name DF/EV Isometrics Side right Equipment Used Lev 1 Tband Reps/Minutes 5 SH x 15 Comments Extra time to explain ex and pt to perform correctly. Manual Therapy Treatment Soft Tissue Mobilization R scar Body Location R anterior ankle scar Mobilization Type Myofascial Release,Other Intensity/Depth superficial>moderate Body Position Supine RLE elevated R foot Body Location R dorsal, medial and lateral foot Mobilization Type Myofascial Release,Strumming Intensity/Depth Superficial Body Position Supine: leg on bolster Taping R ankle/foot Body Location R ankle/foot: fan tape Treatment Focus Decrease swelling and improve soft tissue mobility Type of Tape Kinesio Tape Skin Inspection Good Comments Did not put tape on healing lateral incision. R scar Body Location anterior scar Treatment Focus improve scar mobility Type of Tape Kinesio Tape Skin Inspection Good Self-Care/Home Management Treatment Education Other Education Pt I/S in safe and proper removal of K-tape and I/S pt to wear no more than 5 days and/or remove 1 day prior to next appt. PT-OP-R Modalities Start: 12/21/22 18:10 Freq: Status: Active Protocol: Document 01/08/23 13:50 LRN (Rec: 01/08/23 14:36 LRN [id number]) Hot Pack/Cold Pack Treatment Cold Pack Location R ankle Treatment Duration (minutes) 10 Patient Tolerance Good Comments Supine with RLE on bolster PT-OP-T Assessment and Plan Start: 12/21/22 18:10 Freq: Status: Active Protocol: Document 01/08/23 13:50 LRN (Rec: 01/08/23 14:36 LRN [id number]) Physical Therapy Assessment Goals Five Impairment Decreased R big toe ROM and strength Impairment R big toe MTP AROM: ext: 22 deg's, flex: 15 deg's. L big toe MTP AROM: ext: 52 deg's, flex: 60 deg's. R big toe strength: flex: 4/ 5, ext: 5/5 R big toe strength: flex: 4/ 5, ext: 3/5 Short Term Goal (STG) Improve Big toe flex/ext strength to 5/5. STG Duration 02/09/23 Barrel Charrer Goal (LTG) Improve R big toe ext AROM to normal with pt able to walk in normal shoes on level surface with a normal gait. LTG Duration 03/23/23 Four Impairment R ankle Edema Impairment Fig 8 ankle msmt: 57 cm R, 47 .5 cm L Short Term Goal (STG) Decrease R ankle edema with pt able to get up /don off the ground with reported less difficulty. STG Duration 02/09/23 Barrel Charrer Goal (LTG) Decrease R ankle edema with pt able to tolerate gardening for 4-5 hours. LTG Duration 03/23/23 Three Impairment Decreased R ankle strength Impairment R ankle strength: initially not formally tested. Pt able to partially move DF/PF against gravity within available range; therefore rated 2-/5. Short Term Goal (STG) Improve R ankle with pt able to step in/out of tub with hand support, and safely stand for showers. STG Duration 02/09/23 Barrel Charrer Goal (LTG) Improve RLE strength to improve pt ability to walk and improve her tolerance to walk up and down her road (1/2 mile = half way down the road) with tolerable pain. LTG Duration 03/23/23 Two Impairment Decreased R ankle AROM Retirement Goal (LTG) Pt will be able tolerate incline ambulation (driveways) with tolerable ankle pain. LTG Duration 03/23/23 One Impairment Lacks appropriate self care HEP. Short Term Goal (STG) Pt will be educated in self care edema/pain mangement. 01/05/23: Pt educated in RICE & contrast bath technique. STG Duration 01/05/23 (01/05/23: MET GOAL) . Retirement Goal (LTG) Pt will be educated in a self care HEP of R ankle ROM and strengthening ex's and general LE strengthening exercises. 01/02/23: I/S pt in R ankle AROM and garrett DF/PF ex. 01/08/23: I/S pt in R ankle DF /EV active with end-range garrett w/Lev1 TBand. LTG Duration 03/23/23 progressed 01/08/23. Progress Towards Goals Progress Comments Progresssed HEP. Note: 01/05/23: STG #1 MET. Assessment Summary Assessment Pt is 9 weeks postop R ankle replacement and Brostrom lateral ligament repair. She is sore in her R ankle, possibly from exercise and having to wear her walking boot again due to misplacement of her soft ankle brace, which she is expecting to receive today. The pt was able to tolerate R ankle DF & EV with Lev 1 TBand for active mvmt and end-range Isometric hold. Her R ankle soft tissue and scar mobility is quite restricted, but will hopefully improve with K-tape. Physical Therapy Plan Frequency and Duration Frequency of Treatment 2x/Week Plan of Care Start Date 12/25/22 Plan of Care End Date 03/23/23 Next Visit Focus/Plan Next Note Type Treatment Note Next Visit Plan Assess response to K-tape and TBand ex. Follow referral of : modalities, progressive resistance ex's including ecc strengthening, proprioceptive re-education. AVOID Excessive PF/IV. Assess stair ambulation, TUG & Functional Test of 2' or 6' walk test or endurance test ( 30 Sec Sit to Stand test). Issue handouts for ankle AROM ex. and self care for edema and pain management. Progress strengthening, and proprioceptive re-education and balance. End CP with LE elevated unless pt choose to ice at home.
--- NOTE | 2023-01-18 17:28 | PT.OTN ---
Current Diagnoses Presence of right artificial ankle joint (01/18/23) Physical Therapy Treatment Note PT-OP-A Visit Information Start: 12/21/22 18:10 Freq: Status: Active Protocol: Document 01/18/23 09:54 LRN (Rec: 01/18/23 10:35 LRN [id number]) Out-Patient Physical Therapy Visit Information Visit Information Visit Type Treatment Note Visit Start Time 09:54 Visit Stop Time 10:31 Total Visit Minutes 49 Visit Number 5 Evaluation Information Evaluation Date 12/25/22 Precautions Precautions Pt reports she was told no ankle IV/EV. Referral instructions of: modalities, progressive resistance ex's including ecc strengtheing, proprioceptive re-education, avoid excessive plantarflexion /inversion. (Referral/protocol from [facility] in [place] for s/p R ankle replacement and Brostrom lateral ligament repair). PT-OP-B Current Condition Start: 12/21/22 18:10 Freq: Status: Active Protocol: Document 12/25/22 11:19 LRN (Rec: 12/25/22 12:32 LRN [id number]) Current Condition History of Current Condition Onset Date 11/06/22 Current Complaints Constant ache in the R ankle and need to transition from walking boot. History of Current Condition 11/06/22 R ankle replacement and Brostrom lateral ligament repair, at [facility] in [place], [place]. Pt reports spending one night in hospital before discharge home. Pt's R foot has been in a splint/NWBing for 2 weeks and then was casted/NWBing for 2 more weeks before being placed in a walking boot brace . Pt is now 7 weeks post- operation. States she is now supposed to transition to a soft brace but first needs to obtain one. She states she is walking around the house and the yard without an assistive device, and has walked without her walking boot in the house . With the walking boot she can't get up/down from the ground to do gardening very well, stating is doesn't hurt but just difficult. She tolerates ~3 hrs of gardening, before the ankle aches, requiring her to go in to elevate and ice the R ankle. States she is used to being very active with her gardening and horse training, but currently is staying away from the horse for obvious reasons . Future Testing and Treatments Planned Next MD visit: 3 weeks. Treatment Goals Patient/Caregiver Goals Pt is to get back to what she was doing before. Example: get up /don off the ground, strengthen the legs (wasn't exercising before the surgery because of pain). To function better: step in/out of tub with hand hold assist, and stand for showers, walk better to be able to walk up and down her road (1/2 mile = half way down the road), and able tolerate incline ambulation ( driveways). Tolerate gardening for 4-5 hours. Prior Functional Status Baseline Function- ADL's Independent Baseline Function- Mobility Independent Baseline Function- Recreation/Hobbies Working with her horse, requires running or walking fast to get out of the horse's way. Idea is to train the horse to ride. Gardens constantly (kneel, prune trees, goes up/down ladders) Current Functional Impairments (Reported) Functional Limitations- ADL's Independent. Functional Limitations- Mobility/Gait Ambulates with walking boot and antalgic gait without assistive device, independently. R ankle pain with walking. Functional Limitations- Recreation/ Not able to train her horse. 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 PT-OP-C Subjective Start: 12/21/22 18:10 Freq: Status: Active Protocol: Document 01/18/23 09:54 LRN (Rec: 01/18/23 10:35 LRN [id number]) OP-PT Subjective Patient Comments Patient Comments Swollen this morning because did a lot of walking and iced at home. Went to work yesterday planting pots and things. Thinks the K-tape helped with the swelling. States she saw MD and said everything has healed and will be seen next after a year. PT-OP-G Mobility & Gait Start: 12/21/22 18:10 Freq: Status: Active Protocol: Document 12/25/22 11:19 LRN (Rec: 12/25/22 12:32 LRN [id number]) OP Gait Assessment Gait Gait Assistance Required: Independent Distance (Feet) 100 Able to Maintain Weight Bearing Status Yes During Gait Assistive Devices Assistive Device None Orthotic/Prosthetic Devices or Brace: Yes Gait Deviations General Gait Pattern Antalgic,Wide Based Gait Factors Limiting Gait Function Factors Limiting Gait Function Decreased Strength,Limited Range of Motion,Pain,Poor Balance PT-OP-H Neuro Start: 12/21/22 18:10 Freq: Status: Active Protocol: Document 12/25/22 11:19 LRN (Rec: 12/25/22 12:32 LRN [id number]) Sensation Evaluation Gross Sensation Gross Sensation Right LE Impaired Sensation Description Numbness Comments Summary Comments Decreased sensation of R foot along well healed scar ( anterior ankle) and around healing scar on the lateral side of the R foot. Normal sensation on the bottom of the R foot. PT-OP-J Posture/Palpation/Skin Start: 12/21/22 18:10 Freq: Status: Active Protocol: Document 12/25/22 11:19 LRN (Rec: 12/25/22 12:32 LRN [id number]) Posture Evaluation Position Standing L-Spine Posture Decreased Lordosis Shoulder Posture (R) Elevated Pelvis Posture Posterior Tilted,(R) Iliac Crest Superior,(L) ASIS Posterior Weight Distribution Weight Shifted Left Ankle/Foot Posture (L) Neutral,(R) Neutral Foot Arch (L) High Arch,(R) High Arch Comments Posture Comments Bunion bilaterally, Big toe adducted. Palpation Assessment Location R heel Palpation Location R heel Palpation Findings Edema R ankle Palpation Location R ankle joint Palpation Findings Edema,Soft Tissue Tightness, Tenderness Skin Assessment Circumference Measurement L ankle Fig 8 Location L ankle Fig 8 Measurement (Centimeters) 47.5 Comments Ankle is normal in temperature and skin color. R ankle Fig 8 Location R ankle Fig 8 Measurement (Centimeters) 57 Comments Ankle is warm to touch, swollen, skin shiny and red. PT-OP-K Range of Motion Start: 12/21/22 18:10 Freq: Status: Active Protocol: Document 12/25/22 11:19 LRN (Rec: 12/25/22 12:32 LRN [id number]) Knee Goniometric Range of Motion Knee Right Knee ROM WFL Yes Left Knee ROM WFL Yes Ankle and Foot Goniometric Range of Motion Ankle and Foot Right Active Ankle/Foot ROM WFL No Testing Position Supine Plantarflexion 26 Comments Lack 2 deg's DF with knee extended Deferred testing Ankle IV/EV per pt report to not perform side to side movement. Left Active Ankle/Foot ROM WFL Yes Testing Position Supine Dorsiflexion with Knee Extended 18 Plantarflexion 43 Inversion 25 Eversion 10 Toe Range of Motion Toe Right Great Toe Toe ROM WFL No MTP Flexion Active (degrees) 15 MTP Extension Active (degrees) 22 Left Great Toe Toe ROM WFL Yes MTP Flexion Active (degrees) 60 MTP Extension Active (degrees) 52 PT-OP-M Strength Start: 12/21/22 18:10 Freq: Status: Active Protocol: Document 12/25/22 11:19 LRN (Rec: 12/25/22 12:32 LRN [id number]) Knee Strength Knee Manual Muscle Testing Right Flexion (S2) 5 Normal Extension (L3) 5 Normal Left Flexion (S2) 5 Normal Extension (L3) 5 Normal Ankle/Foot Strength Ankle and Foot Manual Muscle Testing Right Comments Deferred due to recent surgery . Pt was able to demonstrate active DF/PF within available ROM. Left Dorsiflexion (L4) 5 Normal Plantarflexion (S1) 5 Normal Inversion 5 Normal Eversion (S1) 5 Normal Toe Strength Toe Manual Muscle Testing Right Great Toe Flexion 4 Good Extension 5 Normal Left Great Toe Flexion 5 Normal Extension 3 Fair PT-OP-Q Treatments Start: 12/21/22 18:10 Freq: Status: Active Protocol: Document 01/18/23 09:54 LRN (Rec: 01/18/23 10:35 LRN [id number]) Therapeutic Exercises Supine Exercises R Big Toe Supine Exercise Name R Big Toe flex/Ext PROM, AROM Side right Reps/Minutes 2' R Ankle PF/DF Supine Exercise Name R Ankle active PF/DF Side right Reps/Minutes 4' Sitting Exercises R Ankle PF/DF Sitting Exercise Name HEP I/S to work up to 15x 3 sets before heel raise L>R WBing standing Side right Reps/Minutes 15x each Comments Extra time for training Standing Exercises Heel raises Standing Exercise Name More wgt on LLE Side bilateral Reps/Minutes 10-15x Comments Minimal heel raise noted. Ankle EV Standing Exercise Name Passive stretch: Dosal surface of lateral toes on floor and hang into EV Ankle PF Standing Exercise Name Placing dorsal surface of toes on ground for passive stretch Side right Reps/Minutes 2' Mvmts of toes fwd/back/ side to side and breaths x 10 - 2 sets Comments Extra time for training and determining max tolerated stretch position R Gastroc stretch Standing Exercise Name Stretch with: toe AROM, QS, breathing x 10, 2 sets Side right Reps/Minutes 3' Comments Extra time for training and determining max tolerated stretch position Manual Therapy Treatment Soft Tissue Mobilization R scar Body Location R anterior ankle scar Mobilization Type Myofascial Release,Other Intensity/Depth superficial>moderate Body Position Supine RLE elevated Taping R ankle/foot Body Location R ankle/foot: fan tape Treatment Focus Decrease swelling and improve soft tissue mobility Type of Tape Kinesio Tape Skin Inspection Good Comments Did not put tape on healing lateral incision. R scar Body Location anterior scar Treatment Focus improve scar mobility Type of Tape Kinesio Tape Skin Inspection Good PT-OP-R Modalities Start: 12/21/22 18:10 Freq: Status: Active Protocol: Document 01/18/23 09:54 LRN (Rec: 01/18/23 10:35 LRN [id number]) Hot Pack/Cold Pack Treatment Cold Pack Location R ankle Treatment Duration (minutes) 10 Patient Tolerance Good Comments Supine with RLE on bolster PT-OP-T Assessment and Plan Start: 12/21/22 18:10 Freq: Status: Active Protocol: Document 01/18/23 09:54 LRN (Rec: 01/18/23 10:35 LRN [id number]) Physical Therapy Assessment Goals Five Impairment Decreased R big toe ROM and strength Impairment R big toe MTP AROM: ext: 22 deg's, flex: 15 deg's. L big toe MTP AROM: ext: 52 deg's, flex: 60 deg's. R big toe strength: flex: 4/ 5, ext: 5/5 R big toe strength: flex: 4/ 5, ext: 3/5 Short Term Goal (STG) Improve Big toe flex/ext strength to 5/5. STG Duration 02/09/23 Long-Term Goal (LTG) Improve R big toe ext AROM to normal with pt able to walk in normal shoes on level surface with a normal gait. LTG Duration 03/23/23 Four Impairment R ankle Edema Impairment Fig 8 ankle msmt: 57 cm R, 47 .5 cm L Short Term Goal (STG) Decrease R ankle edema with pt able to get up /don off the ground with reported less difficulty. STG Duration 02/09/23 Long-Term Goal (LTG) Decrease R ankle edema with pt able to tolerate gardening for 4-5 hours. LTG Duration 03/23/23 Three Impairment Decreased R ankle strength Impairment R ankle strength: initially not formally tested. Pt able to partially move DF/PF against gravity within available range; therefore rated 2-/5. Short Term Goal (STG) Improve R ankle with pt able to step in/out of tub with hand support, and safely stand for showers. STG Duration 02/09/23 Long-Term Goal (LTG) Improve RLE strength to improve pt ability to walk and improve her tolerance to walk up and down her road (1/2 mile = half way down the road) with tolerable pain. LTG Duration 03/23/23 Two Impairment Decreased R ankle AROM En[employer] Applier Goal (LTG) Pt will be able tolerate incline ambulation (driveways) with tolerable ankle pain. LTG Duration 03/23/23 One Impairment Lacks appropriate self care HEP. Short Term Goal (STG) Pt will be educated in self care edema/pain mangement. 01/05/23: Pt educated in RICE & contrast bath technique. STG Duration 01/05/23 (01/05/23: MET GOAL) . Enamel Applier Goal (LTG) Pt will be educated in a self care HEP of R ankle ROM and strengthening ex's and general LE strengthening exercises. 01/02/23: I/S pt in R ankle AROM and garrett DF/PF ex. 01/08/23: I/S pt in R ankle DF /EV active with end-range garrett w/Lev1 TBand. 01/18/23: I/S pt in R ankle Active PF/DF to work up to 10x 3, then start staniding PF w/ both ankles. LTG Duration 03/23/23 progressed 01/08/23. Progress Towards Goals Progress Comments Visible improvement in scar mob. Assessment Summary Assessment Pt reports cleared by MD, no further MD f/u visits. Pt very limited in ankle DF>PF and IV>EV. Scar mob improving , K-tape helpful. Physical Therapy Plan Frequency and Duration Frequency of Treatment 2x/Week Plan of Care Start Date 12/25/22 Plan of Care End Date 03/23/23 Next Visit Focus/Plan Next Note Type Treatment Note Next Visit Plan Assess response TBand and active R ankle ex. Follow referral of: modalities, progressive resistance ex's including ecc strengthening, proprioceptive re-education. AVOID: Excessive PF/IV. Assess stair ambulation, TUG & Functional Test of 2' or 6' walk test or endurance test ( 30 Sec Sit to Stand test). Issue handouts for ankle AROM ex or if progressed, resisted ankle ex's. Progress R ankle strengthening . Neuro-luis: proprioceptive re -education and balance. End CP with LE elevated unless pt chooses to ice at home.
--- NOTE | 2023-01-25 12:45 | PT.OTN ---
Current Diagnoses Presence of right artificial ankle joint (01/25/23) Physical Therapy Treatment Note PT-OP-A Visit Information Start: 12/21/22 18:10 Freq: Status: Active Protocol: Document 01/25/23 12:02 SP (Rec: 01/25/23 12:52 SP [id number]) Out-Patient Physical Therapy Visit Information Visit Information Visit Type Treatment Note Visit Start Time 12:02 Visit Stop Time 12:45 Total Visit Minutes 43 Visit Number 6 Number of [employer]PERATOR Visits 1 Evaluation Information Evaluation Date 12/25/22 Precautions Precautions Pt reports she was told no ankle IV/EV. Referral instructions of: modalities, progressive resistance ex's including ecc strengtheing, proprioceptive re-education, avoid excessive plantarflexion /inversion. (Referral/protocol from [facility] in [place] for s/p R ankle replacement and Brostrom lateral ligament repair). PT-OP-B Current Condition Start: 12/21/22 18:10 Freq: Status: Active Protocol: Document 12/25/22 11:19 LRN (Rec: 12/25/22 12:32 LRN [id number]) Current Condition History of Current Condition Onset Date 11/06/22 Current Complaints Constant ache in the R ankle and need to transition from walking boot. History of Current Condition 11/06/22 R ankle replacement and Brostrom lateral ligament repair, at [facility] in [place], [place]. Pt reports spending one night in hospital before discharge home. Pt's R foot has been in a splint/NWBing for 2 weeks and then was casted/NWBing for 2 more weeks before being placed in a walking boot brace . Pt is now 7 weeks post- operation. States she is now supposed to transition to a soft brace but first needs to obtain one. She states she is walking around the house and the yard without an assistive device, and has walked without her walking boot in the house . With the walking boot she can't get up/down from the ground to do gardening very well, stating is doesn't hurt but just difficult. She tolerates ~3 hrs of gardening, before the ankle aches, requiring her to go in to elevate and ice the R ankle. States she is used to being very active with her gardening and horse training, but currently is staying away from the horse for obvious reasons . Future Testing and Treatments Planned Next MD visit: 3 weeks. Treatment Goals Patient/Caregiver Goals Pt is to get back to what she was doing before. Example: get up /don off the ground, strengthen the legs (wasn't exercising before the surgery because of pain). To function better: step in/out of tub with hand hold assist, and stand for showers, walk better to be able to walk up and down her road (1/2 mile = half way down the road), and able tolerate incline ambulation ( driveways). Tolerate gardening for 4-5 hours. Prior Functional Status Baseline Function- ADL's Independent Baseline Function- Mobility Independent Baseline Function- Recreation/Hobbies Working with her horse, requires running or walking fast to get out of the horse's way. Idea is to train the horse to ride. Gardens constantly (kneel, prune trees, goes up/down ladders) Current Functional Impairments (Reported) Functional Limitations- ADL's Independent. Functional Limitations- Mobility/Gait Ambulates with walking boot and antalgic gait without assistive device, independently. R ankle pain with walking. Functional Limitations- Recreation/ Not able to train her horse. Hobbies Not able to garden (kneel, prune trees, taverse up/down ladders) Personal Factors Other Personal Factors That May Effect 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 PT-OP-C Subjective Start: 12/21/22 18:10 Freq: Status: Active Protocol: Document 01/25/23 12:02 SP (Rec: 01/25/23 12:52 SP [id number]) OP-PT Subjective Patient Comments Patient Comments Pt reports R ankle hurting today, walking around alot and on/off ground planting pot for others, carrying heavy items walking. PT-OP-E Functional Tests Start: 12/21/22 18:10 Freq: Status: Active Protocol: Document 01/25/23 12:02 SP (Rec: 01/25/23 12:52 SP [id number]) Functional Tests Timed Up and Go (TUG) Score 14 sec TUG Impairment Rating 40 to <60% Impaired (Score 14- 15) Other STS in 30 sec Name of Test 8.5 reps in 30 sec Comment no UE support required PT-OP-G Mobility & Gait Start: 12/21/22 18:10 Freq: Status: Active Protocol: Document 12/25/22 11:19 LRN (Rec: 12/25/22 12:32 LRN [id number]) OP Gait Assessment Gait Gait Assistance Required: Independent Distance (Feet) 100 Able to Maintain Weight Bearing Status Yes During Gait Assistive Devices Assistive Device None Orthotic/Prosthetic Devices or Brace: Yes Gait Deviations General Gait Pattern Antalgic,Wide Based Gait Factors Limiting Gait Function Factors Limiting Gait Function Decreased Strength,Limited Range of Motion,Pain,Poor Balance PT-OP-H Neuro Start: 12/21/22 18:10 Freq: Status: Active Protocol: Document 12/25/22 11:19 LRN (Rec: 12/25/22 12:32 LRN [id number]) Sensation Evaluation Gross Sensation Gross Sensation Right LE Impaired Sensation Description Numbness Comments Summary Comments Decreased sensation of R foot along well healed scar ( anterior ankle) and around healing scar on the lateral side of the R foot. Normal sensation on the bottom of the R foot. PT-OP-J Posture/Palpation/Skin Start: 12/21/22 18:10 Freq: Status: Active Protocol: Document 12/25/22 11:19 LRN (Rec: 12/25/22 12:32 LRN [id number]) Posture Evaluation Position Standing L-Spine Posture Decreased Lordosis Shoulder Posture (R) Elevated Pelvis Posture Posterior Tilted,(R) Iliac Crest Superior,(L) ASIS Posterior Weight Distribution Weight Shifted Left Ankle/Foot Posture (L) Neutral,(R) Neutral Foot Arch (L) High Arch,(R) High Arch Comments Posture Comments Bunion bilaterally, Big toe adducted. Palpation Assessment Location R heel Palpation Location R heel Palpation Findings Edema R ankle Palpation Location R ankle joint Palpation Findings Edema,Soft Tissue Tightness, Tenderness Skin Assessment Circumference Measurement L ankle Fig 8 Location L ankle Fig 8 Measurement (Centimeters) 47.5 Comments Ankle is normal in temperature and skin color. R ankle Fig 8 Location R ankle Fig 8 Measurement (Centimeters) 57 Comments Ankle is warm to touch, swollen, skin shiny and red. PT-OP-K Range of Motion Start: 12/21/22 18:10 Freq: Status: Active Protocol: Document 12/25/22 11:19 LRN (Rec: 12/25/22 12:32 LRN [id number]) Knee Goniometric Range of Motion Knee Right Knee ROM WFL Yes Left Knee ROM WFL Yes Ankle and Foot Goniometric Range of Motion Ankle and Foot Right Active Ankle/Foot ROM WFL No Testing Position Supine Plantarflexion 26 Comments Lack 2 deg's DF with knee extended Deferred testing Ankle IV/EV per pt report to not perform side to side movement. Left Active Ankle/Foot ROM WFL Yes Testing Position Supine Dorsiflexion with Knee Extended 18 Plantarflexion 43 Inversion 25 Eversion 10 Toe Range of Motion Toe Right Great Toe Toe ROM WFL No MTP Flexion Active (degrees) 15 MTP Extension Active (degrees) 22 Left Great Toe Toe ROM WFL Yes MTP Flexion Active (degrees) 60 MTP Extension Active (degrees) 52 PT-OP-M Strength Start: 12/21/22 18:10 Freq: Status: Active Protocol: Document 12/25/22 11:19 LRN (Rec: 12/25/22 12:32 LRN [id number]) Knee Strength Knee Manual Muscle Testing Right Flexion (S2) 5 Normal Extension (L3) 5 Normal Left Flexion (S2) 5 Normal Extension (L3) 5 Normal Ankle/Foot Strength Ankle and Foot Manual Muscle Testing Right Comments Deferred due to recent surgery . Pt was able to demonstrate active DF/PF within available ROM. Left Dorsiflexion (L4) 5 Normal Plantarflexion (S1) 5 Normal Inversion 5 Normal Eversion (S1) 5 Normal Toe Strength Toe Manual Muscle Testing Right Great Toe Flexion 4 Good Extension 5 Normal Left Great Toe Flexion 5 Normal Extension 3 Fair PT-OP-Q Treatments Start: 12/21/22 18:10 Freq: Status: Active Protocol: Document 01/25/23 12:02 SP (Rec: 01/25/23 12:52 SP [id number]) Therapeutic Exercises Supine Exercises R Ankle PF/DF Supine Exercise Name R Ankle active PF/DF- long sitting Side right Resistance TB #2 Reps/Minutes 12 reps x2 Comments good feedback Sidelying Exercises self STMs Sidelying Exercise Name rolling pin calf, pinch achilles ankle pump Side right Comments good helpful reports Sitting Exercises STS Sitting Exercise Name assessment and added for HEP ( declined HO) Reps/Minutes 14 reps in 30 sec. Comments good form/painfree. ankle 4 way Sitting Exercise Name PF, DF, EV, added IV due to feel ankle rolls in walking Side right Resistance TB #2 orange Reps/Minutes 2x12 Comments cued slow eccentric control R Ankle PF/DF Sitting Exercise Name HEP I/S to work up to 15x 3 sets before heel raise L>R WBing standing Side right Reps/Minutes 15x each Comments Extra time for training Standing Exercises heel toe, toe heel walkig Standing Exercise Name f/b- added to HEP (declined HO ) Resistance AROM Reps/Minutes 20 ft x2 laps Comments cued accuate movement, core trunk stability improved ankle stability. Heel raises Standing Exercise Name More wgt on LLE Side bilateral Equipment Used contact table needed Reps/Minutes 10-15x Comments Minimal heel raise noted. Manual Therapy Treatment Soft Tissue Mobilization R scar Body Location R anterior ankle scar Mobilization Type Myofascial Release,Other Intensity/Depth superficial>moderate Body Position Sitting Comments manual and ed self application use rolling pin and sustained pressure achilles and ankle pumps- good feedback helpful R foot Body Location R dorsal, medial and lateral foot Mobilization Type Myofascial Release,Strumming Intensity/Depth Superficial Body Position Sitting Comments RLE over L knee: manual and ed self PT-OP-R Modalities Start: 12/21/22 18:10 Freq: Status: Active Protocol: Document 01/18/23 09:54 LRN (Rec: 01/18/23 10:35 LRN [id number]) Hot Pack/Cold Pack Treatment Cold Pack Location R ankle Treatment Duration (minutes) 10 Patient Tolerance Good Comments Supine with RLE on bolster PT-OP-T Assessment and Plan Start: 12/21/22 18:10 Freq: Status: Active Protocol: Document 01/25/23 12:02 SP (Rec: 01/25/23 12:52 SP [id number]) Physical Therapy Assessment Goals Five Impairment Decreased R big toe ROM and strength Impairment R big toe MTP AROM: ext: 22 deg's, flex: 15 deg's. L big toe MTP AROM: ext: 52 deg's, flex: 60 deg's. R big toe strength: flex: 4/ 5, ext: 5/5 R big toe strength: flex: 4/ 5, ext: 3/5 Short Term Goal (STG) Improve Big toe flex/ext strength to 5/5. STG Duration 02/09/23 Senior Living Goal (LTG) Improve R big toe ext AROM to normal with pt able to walk in normal shoes on level surface with a normal gait. LTG Duration 03/23/23 Four Impairment R ankle Edema Impairment Fig 8 ankle msmt: 57 cm R, 47 .5 cm L Short Term Goal (STG) Decrease R ankle edema with pt able to get up /don off the ground with reported less difficulty. 01/25/23: GOAL MET: 50.5 cm circumference Fig 8 measurement. She reports ankle swelling doesn't seem to impede her on/off ground mostly B upper leg weakness w/ UE support. STG Duration 02/09/23 GOAL MET 01/25/23 Senior Living Goal (LTG) Decrease R ankle edema with pt able to tolerate gardening for 4-5 hours. 01/25/23: GOAL MET: able to work 4-5 hrs with achiness and needed to stop. LTG Duration 03/23/23 GOAL MET 01/25/23 Three Impairment Decreased R ankle strength Impairment R ankle strength: initially not formally tested. Pt able to partially move DF/PF against gravity within available range; therefore rated 2-/5. Short Term Goal (STG) Improve R ankle with pt able to step in/out of tub with hand support, and safely stand for showers. 01/25/23: GOAL MET: pt able step in/out shower with light contact toiletry stand fine. STG Duration 02/09/23 GOAL MET 01/25/23 Senior Living Goal (LTG) Improve RLE strength to improve pt ability to walk and improve her tolerance to walk up and down her road (1/2 mile = half way down the road) with tolerable pain. 01/25/23: progressing: hasn't walking on road, has walked with ankle brace house to/from barn uneven ground approx 300 ft and cautious not step in hole with no problems reported . LTG Duration 03/23/23 progressing 01/25/23 Two Impairment Decreased R ankle AROM Tuna Purse Seiner Goal (LTG) Pt will be able tolerate incline ambulation (driveways) with tolerable ankle pain. 01/25/23; no incline driveway to assess. LTG Duration 03/23/23 One Impairment Lacks appropriate self care HEP. Short Term Goal (STG) Pt will be educated in self care edema/pain mangement. 01/05/23: Pt educated in RICE & contrast bath technique. STG Duration 01/05/23 (01/05/23: MET GOAL) . Tuna Purse Seiner Goal (LTG) Pt will be educated in a self care HEP of R ankle ROM and strengthening ex's and general LE strengthening exercises. 01/02/23: I/S pt in R ankle AROM and garrett DF/PF ex. 01/08/23: I/S pt in R ankle DF /EV active with end-range garrett w/Lev1 TBand. 01/18/23: I/S pt in R ankle Active PF/DF to work up to 10x 3, then start staniding PF w/ both ankles. 01/25/23: added uneven surface heel raises with support needed, resisted TB IV and heel toe/toe heel walking, lakshmi rolling pin massage to calf/ achilles. LTG Duration 03/23/23 progressed 01/08/23. Assessment Summary Assessment Pt good feedback response to ther ex today, [place] good STS repeated for LE strengthening and heel toe for support balance and IV to help stability walking in slippers at home. Suggested continue use ankle brace uneven ground. Physical Therapy Plan Frequency and Duration Frequency of Treatment 2x/Week Plan of Care Start Date 12/25/22 Plan of Care End Date 03/23/23 Therapeutic Interventions Therapeutic Interventions Balance Training,Gait Training ,Home Exercise Program,Manual Therapy,Patient/Caregiver Education,Self-Care/Home Management,Soft Tissue Mobilization,Taping, Therapeutic Activities, Therapeutic Exercises Modalities Cold Pack/Ice Massage,Hot Packs Next Visit Focus/Plan Next Note Type Treatment Note Next Visit Plan Assess response TBand and active R ankle ex. Follow referral of: modalities, progressive resistance ex's including ecc strengthening, proprioceptive re-education. AVOID: Excessive PF/IV. Assess stair ambulation, TUG & Functional Test of 2' or 6' walk test or endurance test ( 30 Sec Sit to Stand test). Issue handouts for ankle AROM ex or if progressed, resisted ankle ex's. Progress R ankle strengthening . Neuro-luis: proprioceptive re -education and balance. End CP with LE elevated unless pt chooses to ice at home.
--- NOTE | 2023-01-29 16:44 | PT.OTN ---
Current Diagnoses Presence of right artificial ankle joint (01/29/23) Physical Therapy Treatment Note PT-OP-A Visit Information Start: 12/21/22 18:10 Freq: Status: Active Protocol: Document 01/29/23 12:34 LRN (Rec: 01/29/23 13:19 LRN [id number]) Out-Patient Physical Therapy Visit Information Visit Information Visit Type Treatment Note Visit Start Time 12:34 Visit Stop Time 13:14 Total Visit Minutes 40 Visit Number 7 Evaluation Information Evaluation Date 12/25/22 Precautions Precautions Pt reports she was told no ankle IV/EV. Referral instructions of: modalities, progressive resistance ex's including ecc strengtheing, proprioceptive re-education, avoid excessive plantarflexion /inversion. (Referral/protocol from [facility] in [place] for s/p R ankle replacement and Brostrom lateral ligament repair). PT-OP-B Current Condition Start: 12/21/22 18:10 Freq: Status: Active Protocol: Document 12/25/22 11:19 LRN (Rec: 12/25/22 12:32 LRN [id number]) Current Condition History of Current Condition Onset Date 11/06/22 Current Complaints Constant ache in the R ankle and need to transition from walking boot. History of Current Condition 11/06/22 R ankle replacement and Brostrom lateral ligament repair, at [facility] in [place], [place]. Pt reports spending one night in hospital before discharge home. Pt's R foot has been in a splint/NWBing for 2 weeks and then was casted/NWBing for 2 more weeks before being placed in a walking boot brace . Pt is now 7 weeks post- operation. States she is now supposed to transition to a soft brace but first needs to obtain one. She states she is walking around the house and the yard without an assistive device, and has walked without her walking boot in the house . With the walking boot she can't get up/down from the ground to do gardening very well, stating is doesn't hurt but just difficult. She tolerates ~3 hrs of gardening, before the ankle aches, requiring her to go in to elevate and ice the R ankle. States she is used to being very active with her gardening and horse training, but currently is staying away from the horse for obvious reasons . Future Testing and Treatments Planned Next MD visit: 3 weeks. Treatment Goals Patient/Caregiver Goals Pt is to get back to what she was doing before. Example: get up /don off the ground, strengthen the legs (wasn't exercising before the surgery because of pain). To function better: step in/out of tub with hand hold assist, and stand for showers, walk better to be able to walk up and down her road (1/2 mile = half way down the road), and able tolerate incline ambulation ( driveways). Tolerate gardening for 4-5 hours. Prior Functional Status Baseline Function- ADL's Independent Baseline Function- Mobility Independent Baseline Function- Recreation/Hobbies Working with her horse, requires running or walking fast to get out of the horse's way. Idea is to train the horse to ride. Gardens constantly (kneel, prune trees, goes up/down ladders) Current Functional Impairments (Reported) Functional Limitations- ADL's Independent. Functional Limitations- Mobility/Gait Ambulates with walking boot and antalgic gait without assistive device, independently. R ankle pain with walking. Functional Limitations- Recreation/ Not able to train her horse. Hobbies Not able to garden (kneel, prune trees, taverse up/down ladders) Personal Factors Other Personal Factors That May Effect Lives on 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 PT-OP-C Subjective Start: 12/21/22 18:10 Freq: Status: Active Protocol: Document 01/29/23 12:34 LRN (Rec: 01/29/23 13:19 LRN [id number]) OP-PT Subjective Patient Comments Patient Comments R ankle is feeling pretty good . States she is not as stiff in the mornings. Working outside 3 hrs/day. Worked 5 hrs last week and it was too much. PT-OP-E Functional Tests Start: 12/21/22 18:10 Freq: Status: Active Protocol: Document 01/29/23 12:34 LRN (Rec: 01/29/23 13:19 LRN [id number]) Functional Tests Timed Up and Go (TUG) Score 14 sec TUG Impairment Rating 40 to <60% Impaired (Score 14- 15) Other STS in 30 sec Name of Test 9 Comment Pt had uncontrolled descent x 1 PT-OP-G Mobility & Gait Start: 12/21/22 18:10 Freq: Status: Active Protocol: Document 01/29/23 12:34 LRN (Rec: 01/29/23 13:19 LRN [id number]) Stair Climbing Evaluation Evaluation Level of Assist On Stairs Independent Devices Stair Climbing Assistive Devices Left Railing,Right Railing Technique/Endurance Stair Climbing Direction Ascend and Descend Stair Climbing Technique Step Over Step Number of Steps Climbed 4 Stair Climbing Set # Repetitions (reps) 1 Comments Stair Climbing Comments Pt lacks foot PF and lands flat foot on stepping up on stair. Able to control descent with use of railing. PT-OP-H Neuro Start: 12/21/22 18:10 Freq: Status: Active Protocol: Document 12/25/22 11:19 LRN (Rec: 12/25/22 12:32 LRN [id number]) Sensation Evaluation Gross Sensation Gross Sensation Right LE Impaired Sensation Description Numbness Comments Summary Comments Decreased sensation of R foot along well healed scar ( anterior ankle) and around healing scar on the lateral side of the R foot. Normal sensation on the bottom of the R foot. PT-OP-J Posture/Palpation/Skin Start: 12/21/22 18:10 Freq: Status: Active Protocol: Document 12/25/22 11:19 LRN (Rec: 12/25/22 12:32 LRN [id number]) Posture Evaluation Position Standing L-Spine Posture Decreased Lordosis Shoulder Posture (R) Elevated Pelvis Posture Posterior Tilted,(R) Iliac Crest Superior,(L) ASIS Posterior Weight Distribution Weight Shifted Left Ankle/Foot Posture (L) Neutral,(R) Neutral Foot Arch (L) High Arch,(R) High Arch Comments Posture Comments Bunion bilaterally, Big toe adducted. Palpation Assessment Location R heel Palpation Location R heel Palpation Findings Edema R ankle Palpation Location R ankle joint Palpation Findings Edema,Soft Tissue Tightness, Tenderness Skin Assessment Circumference Measurement L ankle Fig 8 Location L ankle Fig 8 Measurement (Centimeters) 47.5 Comments Ankle is normal in temperature and skin color. R ankle Fig 8 Location R ankle Fig 8 Measurement (Centimeters) 57 Comments Ankle is warm to touch, swollen, skin shiny and red. PT-OP-K Range of Motion Start: 12/21/22 18:10 Freq: Status: Active Protocol: Document 12/25/22 11:19 LRN (Rec: 12/25/22 12:32 LRN [id number]) Knee Goniometric Range of Motion Knee Right Knee ROM WFL Yes Left Knee ROM WFL Yes Ankle and Foot Goniometric Range of Motion Ankle and Foot Right Active Ankle/Foot ROM WFL No Testing Position Supine Plantarflexion 26 Comments Lack 2 deg's DF with knee extended Deferred testing Ankle IV/EV per pt report to not perform side to side movement. Left Active Ankle/Foot ROM WFL Yes Testing Position Supine Dorsiflexion with Knee Extended 18 Plantarflexion 43 Inversion 25 Eversion 10 Toe Range of Motion Toe Right Great Toe Toe ROM WFL No MTP Flexion Active (degrees) 15 MTP Extension Active (degrees) 22 Left Great Toe Toe ROM WFL Yes MTP Flexion Active (degrees) 60 MTP Extension Active (degrees) 52 PT-OP-M Strength Start: 12/21/22 18:10 Freq: Status: Active Protocol: Document 12/25/22 11:19 LRN (Rec: 12/25/22 12:32 LRN [id number]) Knee Strength Knee Manual Muscle Testing Right Flexion (S2) 5 Normal Extension (L3) 5 Normal Left Flexion (S2) 5 Normal Extension (L3) 5 Normal Ankle/Foot Strength Ankle and Foot Manual Muscle Testing Right Comments Deferred due to recent surgery . Pt was able to demonstrate active DF/PF within available ROM. Left Dorsiflexion (L4) 5 Normal Plantarflexion (S1) 5 Normal Inversion 5 Normal Eversion (S1) 5 Normal Toe Strength Toe Manual Muscle Testing Right Great Toe Flexion 4 Good Extension 5 Normal Left Great Toe Flexion 5 Normal Extension 3 Fair PT-OP-Q Treatments Start: 12/21/22 18:10 Freq: Status: Active Protocol: Document 01/29/23 12:34 LRN (Rec: 01/29/23 13:19 LRN [id number]) Therapeutic Exercises Supine Exercises R Ankle PF/DF Supine Exercise Name R Ankle active PF/DF- long sitting Side right Resistance TB #2 Reps/Minutes 15 reps x2 Comments Extra time taken to complete ex for slow eccentric control Sitting Exercises BAPS Sitting Exercise Name R ankle PF/DR Side right Reps/Minutes 10x Comments Extra time for set up and training for max tolerated stretch w/DF STS Sitting Exercise Name Sit<>Stand training, f/b 30 sec sit<>stand test Reps/Minutes 10x, 5, & 9x ankle [address] Sitting Exercise Name EV, added IV due to feel ankle rolls in walking Side right Resistance TB #2 orange Reps/Minutes 15 x 2 EV, 15x 1 for IV Comments Extra time for slow eccentric control Standing Exercises Step ups/downs Standing Exercise Name Step up/down on 6 step Side bilateral Equipment Used Railing Reps/Minutes 15x each Manual Therapy Treatment Soft Tissue Mobilization R scar Body Location R anterior ankle scar Mobilization Type Myofascial Release,Other Intensity/Depth superficial>moderate Body Position Sitting Comments manual and ed self application use rolling pin and sustained pressure achilles and ankle pumps- good feedback helpful Taping R scar Body Location anterior scar Treatment Focus improve scar mobility Type of Tape Kinesio Tape Skin Inspection Good PT-OP-R Modalities Start: 12/21/22 18:10 Freq: Status: Active Protocol: Document 01/18/23 09:54 LRN (Rec: 01/18/23 10:35 LRN [id number]) Hot Pack/Cold Pack Treatment Cold Pack Location R ankle Treatment Duration (minutes) 10 Patient Tolerance Good Comments Supine with RLE on bolster PT-OP-T Assessment and Plan Start: 12/21/22 18:10 Freq: Status: Active Protocol: Document 01/29/23 12:34 LRN (Rec: 01/29/23 13:19 LRN [id number]) Physical Therapy Assessment Goals Five Impairment Decreased R big toe ROM and strength Impairment R big toe MTP AROM: ext: 22 deg's, flex: 15 deg's. L big toe MTP AROM: ext: 52 deg's, flex: 60 deg's. R big toe strength: flex: 4/ 5, ext: 5/5 R big toe strength: flex: 4/ 5, ext: 3/5 Short Term Goal (STG) Improve Big toe flex/ext strength to 5/5. STG Duration 02/09/23 Sorting Machine Operator Goal (LTG) Improve R big toe ext AROM to normal with pt able to walk in normal shoes on level surface with a normal gait. LTG Duration 03/23/23 Four Impairment R ankle Edema Impairment Fig 8 ankle msmt: 57 cm R, 47 .5 cm L Short Term Goal (STG) Decrease R ankle edema with pt able to get up /don off the ground with reported less difficulty. 01/25/23: GOAL MET: 50.5 cm circumference Fig 8 measurement. She reports ankle swelling doesn't seem to impede her on/off ground mostly B upper leg weakness w/ UE support. STG Duration 02/09/23 GOAL MET 01/25/23 Jail Goal (LTG) Decrease R ankle edema with pt able to tolerate gardening for 4-5 hours. 01/25/23: GOAL MET: able to work 4-5 hrs with achiness and needed to stop. LTG Duration 03/23/23 GOAL MET 01/25/23 Three Impairment Decreased R ankle strength Impairment R ankle strength: initially not formally tested. Pt able to partially move DF/PF against gravity within available range; therefore rated 2-/5. Short Term Goal (STG) Improve R ankle with pt able to step in/out of tub with hand support, and safely stand for showers. 01/25/23: GOAL MET: pt able step in/out shower with light contact toiletry stand fine. STG Duration 02/09/23 GOAL MET 01/25/23 Sorting Machine Operator Goal (LTG) Improve RLE strength to improve pt ability to walk and improve her tolerance to walk up and down her road (1/2 mile = half way down the road) with tolerable pain. 01/25/23: progressing: hasn't walking on road, has walked with ankle brace house to/from barn uneven ground approx 300 ft and cautious not step in hole with no problems reported . LTG Duration 03/23/23 progressing 01/25/23 Two Impairment Decreased R ankle AROM Jail Goal (LTG) Pt will be able tolerate incline ambulation (driveways) with tolerable ankle pain. 01/25/23; no incline driveway to assess. LTG Duration 03/23/23 One Impairment Lacks appropriate self care HEP. Short Term Goal (STG) Pt will be educated in self care edema/pain mangement. 01/05/23: Pt educated in RICE & contrast bath technique. STG Duration 01/05/23 (01/05/23: MET GOAL) . Sorting Machine Operator Goal (LTG) Pt will be educated in a self care HEP of R ankle ROM and strengthening ex's and general LE strengthening exercises. 01/02/23: I/S pt in R ankle AROM and garrett DF/PF ex. 01/08/23: I/S pt in R ankle DF /EV active with end-range garrett w/Lev1 TBand. 01/18/23: I/S pt in R ankle Active PF/DF to work up to 10x 3, then start staniding PF w/ both ankles. 01/25/23: added uneven surface heel raises with support needed, resisted TB IV and heel toe/toe heel walking, lakshmi rolling pin massage to calf/ achilles. LTG Duration 03/23/23 progressed 01/25/23. Assessment Summary Assessment Strengthening of R ankle seems to be going well w/o onset of pain. Pt moves slowly through ex's for ECC control strengthening. Decreased endurance with sit<>stand x 9 (for her age group 10-15 is norm). Pt not able to stay for CP after therapy. Physical Therapy Plan Frequency and Duration Frequency of Treatment 2x/Week Plan of Care Start Date 12/25/22 Plan of Care End Date 03/23/23 Next Visit Focus/Plan Next Note Type Treatment Note Next Visit Plan Follow referral of: modalities , progressive resistance ex's including ecc strengthening, proprioceptive re-education. AVOID: Excessive PF/IV. Assess Functional Test: 6' walk test. Issue handouts for ankle AROM ex or if progressed, resisted ankle ex's. Add Toe ROM ex's. Progress R ankle strengthening . Neuro-luis: proprioceptive re -education and balance. End CP with LE elevated unless pt chooses to ice at home.
--- NOTE | 2023-02-05 16:43 | PT.OTN ---
Current Diagnoses Presence of right artificial ankle joint (02/05/23) Physical Therapy Treatment Note PT-OP-A Visit Information Start: 12/21/22 18:10 Freq: Status: Active Protocol: Document 02/05/23 11:18 LRN (Rec: 02/05/23 12:07 LRN [id number]) Out-Patient Physical Therapy Visit Information Visit Information Visit Type Treatment Note Visit Start Time 11:18 Visit Stop Time 13:06 Total Visit Minutes 48 Visit Number 8 Evaluation Information Evaluation Date 12/25/22 Precautions Precautions Pt reports she was told no ankle IV/EV. Referral instructions of: modalities, progressive resistance ex's including ecc strengtheing, proprioceptive re-education, avoid excessive plantarflexion /inversion. (Referral/protocol from [facility] in [place] for s/p R ankle replacement and Brostrom lateral ligament repair). PT-OP-B Current Condition Start: 12/21/22 18:10 Freq: Status: Active Protocol: Document 12/25/22 11:19 LRN (Rec: 12/25/22 12:32 LRN [id number]) Current Condition History of Current Condition Onset Date 11/06/22 Current Complaints Constant ache in the R ankle and need to transition from walking boot. History of Current Condition 11/06/22 R ankle replacement and Brostrom lateral ligament repair, at [facility] in [place], [place]. Pt reports spending one night in hospital before discharge home. Pt's R foot has been in a splint/NWBing for 2 weeks and then was casted/NWBing for 2 more weeks before being placed in a walking boot brace . Pt is now 7 weeks post- operation. States she is now supposed to transition to a soft brace but first needs to obtain one. She states she is walking around the house and the yard without an assistive device, and has walked without her walking boot in the house . With the walking boot she can't get up/down from the ground to do gardening very well, stating is doesn't hurt but just difficult. She tolerates ~3 hrs of gardening, before the ankle aches, requiring her to go in to elevate and ice the R ankle. States she is used to being very active with her gardening and horse training, but currently is staying away from the horse for obvious reasons . Future Testing and Treatments Planned Next MD visit: 3 weeks. Treatment Goals Patient/Caregiver Goals Pt is to get back to what she was doing before. Example: get up /don off the ground, strengthen the legs (wasn't exercising before the surgery because of pain). To function better: step in/out of tub with hand hold assist, and stand for showers, walk better to be able to walk up and down her road (1/2 mile = half way down the road), and able tolerate incline ambulation ( driveways). Tolerate gardening for 4-5 hours. Prior Functional Status Baseline Function- ADL's Independent Baseline Function- Mobility Independent Baseline Function- Recreation/Hobbies Working with her horse, requires running or walking fast to get out of the horse's way. Idea is to train the horse to ride. Gardens constantly (kneel, prune trees, goes up/down ladders) Current Functional Impairments (Reported) Functional Limitations- ADL's Independent. Functional Limitations- Mobility/Gait Ambulates with walking boot and antalgic gait without assistive device, independently. R ankle pain with walking. Functional Limitations- Recreation/ Not able to train her horse. 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 PT-OP-C Subjective Start: 12/21/22 18:10 Freq: Status: Active Protocol: Document 02/05/23 11:18 LRN (Rec: 02/05/23 12:07 LRN [id number]) OP-PT Subjective Patient Comments Patient Comments s/p surgery 3 months PT-OP-E Functional Tests Start: 12/21/22 18:10 Freq: Status: Active Protocol: Document 01/29/23 12:34 LRN (Rec: 01/29/23 13:19 LRN [id number]) Functional Tests Timed Up and Go (TUG) Score 14 sec TUG Impairment Rating 40 to <60% Impaired (Score 14- 15) Other STS in 30 sec Name of Test 9 Comment Pt had uncontrolled descent x 1 PT-OP-G Mobility & Gait Start: 12/21/22 18:10 Freq: Status: Active Protocol: Document 01/29/23 12:34 LRN (Rec: 01/29/23 13:19 LRN [id number]) Stair Climbing Evaluation Evaluation Level of Assist On Stairs Independent Devices Stair Climbing Assistive Devices Left Railing,Right Railing Technique/Endurance Stair Climbing Direction Ascend and Descend Stair Climbing Technique Step Over Step Number of Steps Climbed 4 Stair Climbing Set # Repetitions (reps) 1 Comments Stair Climbing Comments Pt lacks foot PF and lands flat foot on stepping up on stair. Able to control descent with use of railing. PT-OP-H Neuro Start: 12/21/22 18:10 Freq: Status: Active Protocol: Document 12/25/22 11:19 LRN (Rec: 12/25/22 12:32 LRN [id number]) Sensation Evaluation Gross Sensation Gross Sensation Right LE Impaired Sensation Description Numbness Comments Summary Comments Decreased sensation of R foot along well healed scar ( anterior ankle) and around healing scar on the lateral side of the R foot. Normal sensation on the bottom of the R foot. PT-OP-J Posture/Palpation/Skin Start: 12/21/22 18:10 Freq: Status: Active Protocol: Document 12/25/22 11:19 LRN (Rec: 12/25/22 12:32 LRN [id number]) Posture Evaluation Position Standing L-Spine Posture Decreased Lordosis Shoulder Posture (R) Elevated Pelvis Posture Posterior Tilted,(R) Iliac Crest Superior,(L) ASIS Posterior Weight Distribution Weight Shifted Left Ankle/Foot Posture (L) Neutral,(R) Neutral Foot Arch (L) High Arch,(R) High Arch Comments Posture Comments Bunion bilaterally, Big toe adducted. Palpation Assessment Location R heel Palpation Location R heel Palpation Findings Edema R ankle Palpation Location R ankle joint Palpation Findings Edema,Soft Tissue Tightness, Tenderness Skin Assessment Circumference Measurement L ankle Fig 8 Location L ankle Fig 8 Measurement (Centimeters) 47.5 Comments Ankle is normal in temperature and skin color. R ankle Fig 8 Location R ankle Fig 8 Measurement (Centimeters) 57 Comments Ankle is warm to touch, swollen, skin shiny and red. PT-OP-K Range of Motion Start: 12/21/22 18:10 Freq: Status: Active Protocol: Document 12/25/22 11:19 LRN (Rec: 12/25/22 12:32 LRN [id number]) Knee Goniometric Range of Motion Knee Right Knee ROM WFL Yes Left Knee ROM WFL Yes Ankle and Foot Goniometric Range of Motion Ankle and Foot Right Active Ankle/Foot ROM WFL No Testing Position Supine Plantarflexion 26 Comments Lack 2 deg's DF with knee extended Deferred testing Ankle IV/EV per pt report to not perform side to side movement. Left Active Ankle/Foot ROM WFL Yes Testing Position Supine Dorsiflexion with Knee Extended 18 Plantarflexion 43 Inversion 25 Eversion 10 Toe Range of Motion Toe Right Great Toe Toe ROM WFL No MTP Flexion Active (degrees) 15 MTP Extension Active (degrees) 22 Left Great Toe Toe ROM WFL Yes MTP Flexion Active (degrees) 60 MTP Extension Active (degrees) 52 PT-OP-M Strength Start: 12/21/22 18:10 Freq: Status: Active Protocol: Document 12/25/22 11:19 LRN (Rec: 12/25/22 12:32 LRN [id number]) Knee Strength Knee Manual Muscle Testing Right Flexion (S2) 5 Normal Extension (L3) 5 Normal Left Flexion (S2) 5 Normal Extension (L3) 5 Normal Ankle/Foot Strength Ankle and Foot Manual Muscle Testing Right Comments Deferred due to recent surgery . Pt was able to demonstrate active DF/PF within available ROM. Left Dorsiflexion (L4) 5 Normal Plantarflexion (S1) 5 Normal Inversion 5 Normal Eversion (S1) 5 Normal Toe Strength Toe Manual Muscle Testing Right Great Toe Flexion 4 Good Extension 5 Normal Left Great Toe Flexion 5 Normal Extension 3 Fair PT-OP-Q Treatments Start: 12/21/22 18:10 Freq: Status: Active Protocol: Document 02/05/23 11:18 LRN (Rec: 02/05/23 12:07 LRN [id number]) Therapeutic Exercises Sitting Exercises BAPS Sitting Exercise Name R ankle PF/DF Side right Reps/Minutes 15x Comments Extra time for set up and training for max tolerated stretch w/DF Standing Exercises Step ups/downs Standing Exercise Name Step up/down on 6 step - R toe up & ECC down on reverse Side bilateral Equipment Used Railing Reps/Minutes 15x each Heel raises Standing Exercise Name Equal WBin) on level, 2) on small incline. Side bilateral Equipment Used stair railing Reps/Minutes 15x Comments Minimal heel raise noted. R Gastroc stretch Standing Exercise Name Stretch with: toe AROM, QS, breathing x 10, 2 sets Side right Reps/Minutes 3' Comments Extra time for training and determining max tolerated stretch position Gait Training Gait Activity Gait training Description Focus on R toe off, R hip shift, R trunk elongate, balance on RLE. Device Used Mirrors Level of Assistance Much v cuing and some phys cuing. Distance/Duration 24' PT-OP-R Modalities Start: 12/21/22 18:10 Freq: Status: Active Protocol: Document 02/05/23 11:18 LRN (Rec: 02/05/23 12:07 LRN [id number]) Hot Pack/Cold Pack Treatment Cold Pack Location R ankle Treatment Duration (minutes) 10 Patient Tolerance Good Comments Supine with RLE on bolster PT-OP-T Assessment and Plan Start: 12/21/22 18:10 Freq: Status: Active Protocol: Document 02/05/23 11:18 LRN (Rec: 02/05/23 12:07 LRN [id number]) Physical Therapy Assessment Goals Five Impairment Decreased R big toe ROM and strength Impairment R big toe MTP AROM: ext: 22 deg's, flex: 15 deg's. L big toe MTP AROM: ext: 52 deg's, flex: 60 deg's. R big toe strength: flex: 4/ 5, ext: 5/5 R big toe strength: flex: 4/ 5, ext: 3/5 Short Term Goal (STG) Improve Big toe flex/ext strength to 5/5. STG Duration 02/09/23 Jail Goal (LTG) Improve R big toe ext AROM to normal with pt able to walk in normal shoes on level surface with a normal gait. LTG Duration 03/23/23 Three Impairment Decreased R ankle strength Impairment R ankle strength: initially not formally tested. Pt able to partially move DF/PF against gravity within available range; therefore rated 2-/5. Short Term Goal (STG) Improve R ankle with pt able to step in/out of tub with hand support, and safely stand for showers. 01/25/23: GOAL MET: pt able step in/out shower with light contact toiletry stand fine. STG Duration 02/09/23 GOAL MET 01/25/23 [employer] Goal (LTG) Improve RLE strength to improve pt ability to walk and improve her tolerance to walk up and down her road (1/2 mile = half way down the road) with tolerable pain. 01/25/23: progressing: hasn't walking on road, has walked with ankle brace house to/from barn uneven ground approx 300 ft and cautious not step in hole with no problems reported . LTG Duration 03/23/23 progressing 01/25/23 Two Impairment Decreased R ankle AROM [employer]ator Goal (LTG) Pt will be able tolerate incline ambulation (driveways) with tolerable ankle pain. 01/25/23; no incline driveway to assess. LTG Duration 03/23/23 One Impairment Lacks appropriate self care HEP. Short Term Goal (STG) Pt will be educated in self care edema/pain mangement. 01/05/23: Pt educated in RICE & contrast bath technique. STG Duration 01/05/23 (01/05/23: MET GOAL) . Jail Goal (LTG) Pt will be educated in a self care HEP of R ankle ROM and strengthening ex's and general LE strengthening exercises. 01/02/23: I/S pt in R ankle AROM and garrett DF/PF ex. 01/08/23: I/S pt in R ankle DF /EV active with end-range garrett w/Lev1 TBand. 01/18/23: I/S pt in R ankle Active PF/DF to work up to 10x 3, then start standing PF w/ both ankles. 01/25/23: added uneven surface heel raises with support needed, resisted TB IV and heel toe/toe heel walking, lakshmi rolling pin massage to calf/ achilles. LTG Duration 03/23/23 progressed 01/25/23. Progress Towards Goals Progress Comments Improved awareness of proper gait mechanics by patient. Assessment Summary Assessment Pt gait: Lacks ankle mobility , wgt shift bilaterally (R>L), and poor trunk SB mobility and after training she demonstrated poor wgt shift to left and Trendelenburg type gait. Weakness is present with ankle PF. Further therapy needed for HEP, gait training and proprioception/ balance. Physical Therapy Plan Frequency and Duration Frequency of Treatment 2x/Week Plan of Care Start Date 12/25/22 Plan of Care End Date 03/23/23 Next Visit Focus/Plan Next Note Type Treatment Note Next Visit Plan Follow referral of: modalities , progressive resistance ex's including ecc strengthening, proprioceptive re-education. AVOID: Excessive PF/IV. Assess Functional Test: 6' walk test. Issue handouts for ankle AROM ex and resisted ankle ex's. Add Toe ROM ex's. Progress R ankle strengthening . Neuro-luis: proprioceptive re -education and balance. End CP with LE elevated unless pt chooses to ice at home.
--- NOTE | 2023-02-05 16:50 | PT.OTN ---
Current Diagnoses Presence of right artificial ankle joint (02/05/23) Physical Therapy Treatment Note PT-OP-A Visit Information Start: 12/21/22 18:10 Freq: Status: Active Protocol: Document 02/05/23 11:18 LRN (Rec: 02/05/23 12:07 LRN [id number]) Out-Patient Physical Therapy Visit Information Visit Information Visit Type Treatment Note Visit Start Time 11:18 Visit Stop Time 13:06 Total Visit Minutes 48 Visit Number 8 Evaluation Information Evaluation Date 12/25/22 Precautions Precautions Pt reports she was told no ankle IV/EV. Referral instructions of: modalities, progressive resistance ex's including ecc strengtheing, proprioceptive re-education, avoid excessive plantarflexion /inversion. (Referral/protocol from [facility] in [place] for s/p R ankle replacement and Brostrom lateral ligament repair). PT-OP-B Current Condition Start: 12/21/22 18:10 Freq: Status: Active Protocol: Document 12/25/22 11:19 LRN (Rec: 12/25/22 12:32 LRN [id number]) Current Condition History of Current Condition Onset Date 11/06/22 Current Complaints Constant ache in the R ankle and need to transition from walking boot. History of Current Condition 11/06/22 R ankle replacement and Brostrom lateral ligament repair, at [facility] in [place], [place]. Pt reports spending one night in hospital before discharge home. Pt's R foot has been in a splint/NWBing for 2 weeks and then was casted/NWBing for 2 more weeks before being placed in a walking boot brace . Pt is now 7 weeks post- operation. States she is now supposed to transition to a soft brace but first needs to obtain one. She states she is walking around the house and the yard without an assistive device, and has walked without her walking boot in the house . With the walking boot she can't get up/down from the ground to do gardening very well, stating is doesn't hurt but just difficult. She tolerates ~3 hrs of gardening, before the ankle aches, requiring her to go in to elevate and ice the R ankle. States she is used to being very active with her gardening and horse training, but currently is staying away from the horse for obvious reasons . Future Testing and Treatments Planned Next MD visit: 3 weeks. Treatment Goals Patient/Caregiver Goals Pt is to get back to what she was doing before. Example: get up /don off the ground, strengthen the legs (wasn't exercising before the surgery because of pain). To function better: step in/out of tub with hand hold assist, and stand for showers, walk better to be able to walk up and down her road (1/2 mile = half way down the road), and able tolerate incline ambulation ( driveways). Tolerate gardening for 4-5 hours. Prior Functional Status Baseline Function- ADL's Independent Baseline Function- Mobility Independent Baseline Function- Recreation/Hobbies Working with her horse, requires running or walking fast to get out of the horse's way. Idea is to train the horse to ride. Gardens constantly (kneel, prune trees, goes up/down ladders) Current Functional Impairments (Reported) Functional Limitations- ADL's Independent. Functional Limitations- Mobility/Gait Ambulates with walking boot and antalgic gait without assistive device, independently. R ankle pain with walking. Functional Limitations- Recreation/ Not able to train her horse. 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 PT-OP-C Subjective Start: 12/21/22 18:10 Freq: Status: Active Protocol: Document 02/05/23 11:18 LRN (Rec: 02/05/23 12:07 LRN [id number]) OP-PT Subjective Patient Comments Patient Comments s/p surgery 3 months PT-OP-E Functional Tests Start: 12/21/22 18:10 Freq: Status: Active Protocol: Document 01/29/23 12:34 LRN (Rec: 01/29/23 13:19 LRN [id number]) Functional Tests Timed Up and Go (TUG) Score 14 sec TUG Impairment Rating 40 to <60% Impaired (Score 14- 15) Other STS in 30 sec Name of Test 9 Comment Pt had uncontrolled descent x 1 PT-OP-G Mobility & Gait Start: 12/21/22 18:10 Freq: Status: Active Protocol: Document 01/29/23 12:34 LRN (Rec: 01/29/23 13:19 LRN [id number]) Stair Climbing Evaluation Evaluation Level of Assist On Stairs Independent Devices Stair Climbing Assistive Devices Left Railing,Right Railing Technique/Endurance Stair Climbing Direction Ascend and Descend Stair Climbing Technique Step Over Step Number of Steps Climbed 4 Stair Climbing Set # Repetitions (reps) 1 Comments Stair Climbing Comments Pt lacks foot PF and lands flat foot on stepping up on stair. Able to control descent with use of railing. PT-OP-H Neuro Start: 12/21/22 18:10 Freq: Status: Active Protocol: Document 12/25/22 11:19 LRN (Rec: 12/25/22 12:32 LRN [id number]) Sensation Evaluation Gross Sensation Gross Sensation Right LE Impaired Sensation Description Numbness Comments Summary Comments Decreased sensation of R foot along well healed scar ( anterior ankle) and around healing scar on the lateral side of the R foot. Normal sensation on the bottom of the R foot. PT-OP-J Posture/Palpation/Skin Start: 12/21/22 18:10 Freq: Status: Active Protocol: Document 12/25/22 11:19 LRN (Rec: 12/25/22 12:32 LRN [id number]) Posture Evaluation Position Standing L-Spine Posture Decreased Lordosis Shoulder Posture (R) Elevated Pelvis Posture Posterior Tilted,(R) Iliac Crest Superior,(L) ASIS Posterior Weight Distribution Weight Shifted Left Ankle/Foot Posture (L) Neutral,(R) Neutral Foot Arch (L) High Arch,(R) High Arch Comments Posture Comments Bunion bilaterally, Big toe adducted. Palpation Assessment Location R heel Palpation Location R heel Palpation Findings Edema R ankle Palpation Location R ankle joint Palpation Findings Edema,Soft Tissue Tightness, Tenderness Skin Assessment Circumference Measurement L ankle Fig 8 Location L ankle Fig 8 Measurement (Centimeters) 47.5 Comments Ankle is normal in temperature and skin color. R ankle Fig 8 Location R ankle Fig 8 Measurement (Centimeters) 57 Comments Ankle is warm to touch, swollen, skin shiny and red. PT-OP-K Range of Motion Start: 12/21/22 18:10 Freq: Status: Active Protocol: Document 12/25/22 11:19 LRN (Rec: 12/25/22 12:32 LRN [id number]) Knee Goniometric Range of Motion Knee Right Knee ROM WFL Yes Left Knee ROM WFL Yes Ankle and Foot Goniometric Range of Motion Ankle and Foot Right Active Ankle/Foot ROM WFL No Testing Position Supine Plantarflexion 26 Comments Lack 2 deg's DF with knee extended Deferred testing Ankle IV/EV per pt report to not perform side to side movement. Left Active Ankle/Foot ROM WFL Yes Testing Position Supine Dorsiflexion with Knee Extended 18 Plantarflexion 43 Inversion 25 Eversion 10 Toe Range of Motion Toe Right Great Toe Toe ROM WFL No MTP Flexion Active (degrees) 15 MTP Extension Active (degrees) 22 Left Great Toe Toe ROM WFL Yes MTP Flexion Active (degrees) 60 MTP Extension Active (degrees) 52 PT-OP-M Strength Start: 12/21/22 18:10 Freq: Status: Active Protocol: Document 12/25/22 11:19 LRN (Rec: 12/25/22 12:32 LRN [id number]) Knee Strength Knee Manual Muscle Testing Right Flexion (S2) 5 Normal Extension (L3) 5 Normal Left Flexion (S2) 5 Normal Extension (L3) 5 Normal Ankle/Foot Strength Ankle and Foot Manual Muscle Testing Right Comments Deferred due to recent surgery . Pt was able to demonstrate active DF/PF within available ROM. Left Dorsiflexion (L4) 5 Normal Plantarflexion (S1) 5 Normal Inversion 5 Normal Eversion (S1) 5 Normal Toe Strength Toe Manual Muscle Testing Right Great Toe Flexion 4 Good Extension 5 Normal Left Great Toe Flexion 5 Normal Extension 3 Fair PT-OP-Q Treatments Start: 12/21/22 18:10 Freq: Status: Active Protocol: Document 02/05/23 11:18 LRN (Rec: 02/05/23 12:07 LRN [id number]) Therapeutic Exercises Sitting Exercises BAPS Sitting Exercise Name R ankle PF/DF Side right Reps/Minutes 15x Comments Extra time for set up and training for max tolerated stretch w/DF Standing Exercises Step ups/downs Standing Exercise Name Step up/down on 6 step - R toe up & ECC down on reverse Side bilateral Equipment Used Railing Reps/Minutes 15x each Heel raises Standing Exercise Name Equal WBin) on level, 2) on small incline. Side bilateral Equipment Used stair railing Reps/Minutes 15x Comments Minimal heel raise noted. R Gastroc stretch Standing Exercise Name Stretch with: toe AROM, QS, breathing x 10, 2 sets Side right Reps/Minutes 3' Comments Extra time for training and determining max tolerated stretch position Gait Training Gait Activity Gait training Description Focus on R toe off, R hip shift, R trunk elongate, balance on RLE. Device Used Mirrors Level of Assistance Much v cuing and some phys cuing. Distance/Duration 24' PT-OP-R Modalities Start: 12/21/22 18:10 Freq: Status: Active Protocol: Document 02/05/23 11:18 LRN (Rec: 02/05/23 12:07 LRN [id number]) Hot Pack/Cold Pack Treatment Cold Pack Location R ankle Treatment Duration (minutes) 10 Patient Tolerance Good Comments Supine with RLE on bolster PT-OP-T Assessment and Plan Start: 12/21/22 18:10 Freq: Status: Active Protocol: Document 02/05/23 11:18 LRN (Rec: 02/05/23 12:07 LRN [id number]) Physical Therapy Assessment Rehab Potential Rehabilitation Potential Excellent Evaluation Complexity Number of Personal Factors/Comorbidities 1-2 Number of Body Systems Impaired 4 or More Clinical Presentation at Evaluation Evolving Impairments Impairments Activity Tolerance,Balance, Edema,Functional Mobility,Gait ,Pain,Posture,ROM,Soft Tissue Mobility,Strength Goals Five Impairment Decreased R big toe ROM and strength Impairment R big toe MTP AROM: ext: 22 deg's, flex: 15 deg's. L big toe MTP AROM: ext: 52 deg's, flex: 60 deg's. R big toe strength: flex: 4/ 5, ext: 5/5 R big toe strength: flex: 4/ 5, ext: 3/5 Short Term Goal (STG) Improve Big toe flex/ext strength to 5/5. STG Duration 02/09/23 In Home Nanny Goal (LTG) Improve R big toe ext AROM to normal with pt able to walk in normal shoes on level surface with a normal gait. LTG Duration 03/23/23 Four Impairment R ankle Edema Impairment Fig 8 ankle msmt: 57 cm R, 47 .5 cm L Short Term Goal (STG) Decrease R ankle edema with pt able to get up /don off the ground with reported less difficulty. 01/25/23: GOAL MET: 50.5 cm circumference Fig 8 measurement. She reports ankle swelling doesn't seem to impede her on/off ground mostly B upper leg weakness w/ UE support. STG Duration 02/09/23 GOAL MET 01/25/23 In Home Nanny Goal (LTG) Decrease R ankle edema with pt able to tolerate gardening for 4-5 hours. 01/25/23: GOAL MET: able to work 4-5 hrs with achiness and needed to stop. LTG Duration 03/23/23 GOAL MET 01/25/23 Three Impairment Decreased R ankle strength Impairment R ankle strength: initially not formally tested. Pt able to partially move DF/PF against gravity within available range; therefore rated 2-/5. Short Term Goal (STG) Improve R ankle with pt able to step in/out of tub with hand support, and safely stand for showers. 01/25/23: GOAL MET: pt able step in/out shower with light contact toiletry stand fine. STG Duration 02/09/23 GOAL MET 01/25/23 In Home Nanny Goal (LTG) Improve RLE strength to improve pt ability to walk and improve her tolerance to walk up and down her road (1/2 mile = half way down the road) with tolerable pain. 01/25/23: progressing: hasn't walking on road, has walked with ankle brace house to/from barn uneven ground approx 300 ft and cautious not step in hole with no problems reported . LTG Duration 03/23/23 progressing 01/25/23 Two Impairment Decreased R ankle AROM Senior Care Goal (LTG) Pt will be able tolerate incline ambulation (driveways) with tolerable ankle pain. 01/25/23; no incline driveway to assess. LTG Duration 03/23/23 One Impairment Lacks appropriate self care HEP. Short Term Goal (STG) Pt will be educated in self care edema/pain mangement. 01/05/23: Pt educated in RICE & contrast bath technique. STG Duration 01/05/23 (01/05/23: MET GOAL) . In Home Nanny Goal (LTG) Pt will be educated in a self care HEP of R ankle ROM and strengthening ex's and general LE strengthening exercises. 01/02/23: I/S pt in R ankle AROM and garrett DF/PF ex. 01/08/23: I/S pt in R ankle DF /EV active with end-range garrett w/Lev1 TBand. 01/18/23: I/S pt in R ankle Active PF/DF to work up to 10x 3, then start standing PF w/ both ankles. 01/25/23: added uneven surface heel raises with support needed, resisted TB IV and heel toe/toe heel walking, lakshmi rolling pin massage to calf/ achilles. LTG Duration 03/23/23 progressed 01/25/23. Progress Towards Goals Progress Comments Improved awareness of proper gait mechanics by patient. Assessment Summary Assessment Pt is postop R ankle replacement and Brostrom lateral ligament repair . Pt presents with a dysfunctional gait: Lacks ankle mobility, wgt shift bilaterally (R>L), and poor trunk SB mobility and after training she demonstrated poor wgt shift to left and Trendelenburg type gait. Weakness is present with ankle PF. Further skilled therapy is needed for HEP, gait training and proprioception/ balance. Pt will be reduced to therapy 1x/week from 2x/ week. Physical Therapy Plan Frequency and Duration Frequency of Treatment 1x/Week Plan of Care Start Date 02/05/23 Plan of Care End Date 03/23/23 Therapeutic Interventions Therapeutic Interventions Balance Training,Gait Training ,Home Exercise Program,Manual Therapy,Patient/Caregiver Education,Self-Care/Home Management,Soft Tissue Mobilization,Taping, Therapeutic Activities, Therapeutic Exercises Modalities Cold Pack/Ice Massage,Hot Packs Next Visit Focus/Plan Next Note Type Treatment Note Next Visit Plan Follow referral of: modalities , progressive resistance ex's including ecc strengthening, proprioceptive re-education. AVOID: Excessive PF/IV. Assess Functional Test: 6' walk test. Issue handouts for ankle AROM ex and resisted ankle ex's. Add Toe ROM ex's. Progress R ankle strengthening . Neuro-luis: proprioceptive re -education and balance. End CP with LE elevated unless pt chooses to ice at home.
--- NOTE | 2023-02-12 14:56 | PT.OTN ---
Current Diagnoses Presence of right artificial ankle joint (02/12/23) Physical Therapy Treatment Note PT-OP-A Visit Information Start: 12/21/22 18:10 Freq: Status: Active Protocol: Document 02/12/23 11:16 LRN (Rec: 02/12/23 12:10 LRN [id number]) Out-Patient Physical Therapy Visit Information Visit Information Visit Type Treatment Note Visit Start Time 11:16 Visit Stop Time 11:55 Total Visit Minutes 39 Visit Number 9 Evaluation Information Evaluation Date 12/25/22 Precautions Precautions Pt reports she was told no ankle IV/EV. Referral instructions of: modalities, progressive resistance ex's including ecc strengtheing, proprioceptive re-education, avoid excessive plantarflexion /inversion. (Referral/protocol from [facility] in [place] for s/p R ankle replacement and Brostrom lateral ligament repair). PT-OP-B Current Condition Start: 12/21/22 18:10 Freq: Status: Active Protocol: Document 12/25/22 11:19 LRN (Rec: 12/25/22 12:32 LRN [id number]) Current Condition History of Current Condition Onset Date 11/06/22 Current Complaints Constant ache in the R ankle and need to transition from walking boot. History of Current Condition 11/06/22 R ankle replacement and Brostrom lateral ligament repair, at [facility] in [place], [place]. Pt reports spending one night in hospital before discharge home. Pt's R foot has been in a splint/NWBing for 2 weeks and then was casted/NWBing for 2 more weeks before being placed in a walking boot brace . Pt is now 7 weeks post- operation. States she is now supposed to transition to a soft brace but first needs to obtain one. She states she is walking around the house and the yard without an assistive device, and has walked without her walking boot in the house . With the walking boot she can't get up/down from the ground to do gardening very well, stating is doesn't hurt but just difficult. She tolerates ~3 hrs of gardening, before the ankle aches, requiring her to go in to elevate and ice the R ankle. States she is used to being very active with her gardening and horse training, but currently is staying away from the horse for obvious reasons . Future Testing and Treatments Planned Next MD visit: 3 weeks. Treatment Goals Patient/Caregiver Goals Pt is to get back to what she was doing before. Example: get up /don off the ground, strengthen the legs (wasn't exercising before the surgery because of pain). To function better: step in/out of tub with hand hold assist, and stand for showers, walk better to be able to walk up and down her road (1/2 mile = half way down the road), and able tolerate incline ambulation ( driveways). Tolerate gardening for 4-5 hours. Prior Functional Status Baseline Function- ADL's Independent Baseline Function- Mobility Independent Baseline Function- Recreation/Hobbies Working with her horse, requires running or walking fast to get out of the horse's way. Idea is to train the horse to ride. Gardens constantly (kneel, prune trees, goes up/down ladders) Current Functional Impairments (Reported) Functional Limitations- ADL's Independent. Functional Limitations- Mobility/Gait Ambulates with walking boot and antalgic gait without assistive device, independently. R ankle pain with walking. Functional Limitations- Recreation/ Not able to train her horse. 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 PT-OP-C Subjective Start: 12/21/22 18:10 Freq: Status: Active Protocol: Document 02/12/23 11:16 LRN (Rec: 02/12/23 12:10 N [id number]) OP-PT Subjective Patient Comments Patient Comments States she is the same as she has been. Notes she is wearing the inside of her R shoe. PT-OP-E Functional Tests Start: 12/21/22 18:10 Freq: Status: Active Protocol: Document 02/12/23 11:16 LRN (Rec: 02/12/23 14:50 N [id number]) Functional Tests 6 Minute Walk Test Distance 1125.4 ft Device Used None Comments Dysfunctional gait and posture . Tennis shoe looking [employer] shoes PT-OP-G Mobility & Gait Start: 12/21/22 18:10 Freq: Status: Active Protocol: Document 01/29/23 12:34 LRN (Rec: 01/29/23 13:19 LRN [id number]) Stair Climbing Evaluation Evaluation Level of Assist On Stairs Independent Devices Stair Climbing Assistive Devices Left Railing,Right Railing Technique/Endurance Stair Climbing Direction Ascend and Descend Stair Climbing Technique Step Over Step Number of Steps Climbed 4 Stair Climbing Set # Repetitions (reps) 1 Comments Stair Climbing Comments Pt lacks foot PF and lands flat foot on stepping up on stair. Able to control descent with use of railing. PT-OP-H Neuro Start: 12/21/22 18:10 Freq: Status: Active Protocol: Document 12/25/22 11:19 LRN (Rec: 12/25/22 12:32 LRN [id number]) Sensation Evaluation Gross Sensation Gross Sensation Right LE Impaired Sensation Description Numbness Comments Summary Comments Decreased sensation of R foot along well healed scar ( anterior ankle) and around healing scar on the lateral side of the R foot. Normal sensation on the bottom of the R foot. PT-OP-J Posture/Palpation/Skin Start: 12/21/22 18:10 Freq: Status: Active Protocol: Document 12/25/22 11:19 LRN (Rec: 12/25/22 12:32 LRN [id number]) Posture Evaluation Position Standing L-Spine Posture Decreased Lordosis Shoulder Posture (R) Elevated Pelvis Posture Posterior Tilted,(R) Iliac Crest Superior,(L) ASIS Posterior Weight Distribution Weight Shifted Left Ankle/Foot Posture (L) Neutral,(R) Neutral Foot Arch (L) High Arch,(R) High Arch Comments Posture Comments Bunion bilaterally, Big toe adducted. Palpation Assessment Location R heel Palpation Location R heel Palpation Findings Edema R ankle Palpation Location R ankle joint Palpation Findings Edema,Soft Tissue Tightness, Tenderness Skin Assessment Circumference Measurement L ankle Fig 8 Location L ankle Fig 8 Measurement (Centimeters) 47.5 Comments Ankle is normal in temperature and skin color. R ankle Fig 8 Location R ankle Fig 8 Measurement (Centimeters) 57 Comments Ankle is warm to touch, swollen, skin shiny and red. PT-OP-K Range of Motion Start: 12/21/22 18:10 Freq: Status: Active Protocol: Document 12/25/22 11:19 LRN (Rec: 12/25/22 12:32 LRN [id number]) Knee Goniometric Range of Motion Knee Right Knee ROM WFL Yes Left Knee ROM WFL Yes Ankle and Foot Goniometric Range of Motion Ankle and Foot Right Active Ankle/Foot ROM WFL No Testing Position Supine Plantarflexion 26 Comments Lack 2 deg's DF with knee extended Deferred testing Ankle IV/EV per pt report to not perform side to side movement. Left Active Ankle/Foot ROM WFL Yes Testing Position Supine Dorsiflexion with Knee Extended 18 Plantarflexion 43 Inversion 25 Eversion 10 Toe Range of Motion Toe Right Great Toe Toe ROM WFL No MTP Flexion Active (degrees) 15 MTP Extension Active (degrees) 22 Left Great Toe Toe ROM WFL Yes MTP Flexion Active (degrees) 60 MTP Extension Active (degrees) 52 PT-OP-M Strength Start: 12/21/22 18:10 Freq: Status: Active Protocol: Document 12/25/22 11:19 LRN (Rec: 12/25/22 12:32 LRN [id number]) Knee Strength Knee Manual Muscle Testing Right Flexion (S2) 5 Normal Extension (L3) 5 Normal Left Flexion (S2) 5 Normal Extension (L3) 5 Normal Ankle/Foot Strength Ankle and Foot Manual Muscle Testing Right Comments Deferred due to recent surgery . Pt was able to demonstrate active DF/PF within available ROM. Left Dorsiflexion (L4) 5 Normal Plantarflexion (S1) 5 Normal Inversion 5 Normal Eversion (S1) 5 Normal Toe Strength Toe Manual Muscle Testing Right Great Toe Flexion 4 Good Extension 5 Normal Left Great Toe Flexion 5 Normal Extension 3 Fair PT-OP-Q Treatments Start: 12/21/22 18:10 Freq: Status: Active Protocol: Document 02/12/23 11:16 LRN (Rec: 02/12/23 12:10 LRN [id number]) Gait Training Gait Activity 6' walk Description 6' walk w/o AD, cuing for gait . Device Used None Level of Assistance V cuing Surface Level Distance/Duration 1125.4 ft Treatment Focus core stability, upright trunk, wgt shift, lateral hip shift, R foot neutral Comments As time progressed pt began to lean more with trunk and failed to wgt shift to right and ankle was in EV'd on swing through. Gait training Description Focus R foot neutral progression with gait after toe off. Device Used Mirrors Level of Assistance Much phys cuing and some v. cuing. Distance/Duration 24' Comments R foot everts after netural stance. Neuro Re-Education Treatment Balance Activities SLS Details Support>both hands> finger tips>1 finger tip> 1 hand finger tip> no hands Surface Level Equipment ballet bar Reps/Duration 4' PT-OP-R Modalities Start: 12/21/22 18:10 Freq: Status: Active Protocol: Document 02/05/23 11:18 LRN (Rec: 02/05/23 12:07 LRN [id number]) Hot Pack/Cold Pack Treatment Cold Pack Location R ankle Treatment Duration (minutes) 10 Patient Tolerance Good Comments Supine with RLE on bolster PT-OP-T Assessment and Plan Start: 12/21/22 18:10 Freq: Status: Active Protocol: Document 02/12/23 11:16 LRN (Rec: 02/12/23 12:10 LRN [id number]) Physical Therapy Assessment Goals Five Impairment Decreased R big toe ROM and strength Impairment R big toe MTP AROM: ext: 22 deg's, flex: 15 deg's. L big toe MTP AROM: ext: 52 deg's, flex: 60 deg's. R big toe strength: flex: 4/ 5, ext: 5/5 R big toe strength: flex: 4/ 5, ext: 3/5 Short Term Goal (STG) Improve Big toe flex/ext strength to 5/5. STG Duration 02/09/23 [facility] Goal (LTG) Improve R big toe ext AROM to normal with pt able to walk in normal shoes on level surface with a normal gait. LTG Duration 03/23/23 Four Impairment R ankle Edema Impairment Fig 8 ankle msmt: 57 cm R, 47 .5 cm L Short Term Goal (STG) Decrease R ankle edema with pt able to get up /don off the ground with reported less difficulty. 01/25/23: GOAL MET: 50.5 cm circumference Fig 8 measurement. She reports ankle swelling doesn't seem to impede her on/off ground mostly B upper leg weakness w/ UE support. STG Duration 02/09/23 GOAL MET 01/25/23 [facility] Goal (LTG) Decrease R ankle edema with pt able to tolerate gardening for 4-5 hours. 01/25/23: GOAL MET: able to work 4-5 hrs with achiness and needed to stop. LTG Duration 03/23/23 GOAL MET 01/25/23 Three Impairment Decreased R ankle strength Impairment R ankle strength: initially not formally tested. Pt able to partially move DF/PF against gravity within available range; therefore rated 2-/5. Short Term Goal (STG) Improve R ankle with pt able to step in/out of tub with hand support, and safely stand for showers. 01/25/23: GOAL MET: pt able step in/out shower with light contact toiletry stand fine. STG Duration 02/09/23 GOAL MET 01/25/23 Health Management Consultant Goal (LTG) Improve RLE strength to improve pt ability to walk and improve her tolerance to walk up and down her road (1/2 mile = half way down the road) with tolerable pain. 01/25/23: progressing: hasn't walking on road, has walked with ankle brace house to/from barn uneven ground approx 300 ft and cautious not step in hole with no problems reported . LTG Duration 03/23/23 progressing 01/25/23 Two Impairment Decreased R ankle AROM [facility] Goal (LTG) Pt will be able tolerate incline ambulation (driveways) with tolerable ankle pain. 01/25/23; no incline driveway to assess. LTG Duration 03/23/23 One Impairment Lacks appropriate self care HEP. Short Term Goal (STG) Pt will be educated in self care edema/pain mangement. 01/05/23: Pt educated in RICE & contrast bath technique. STG Duration 01/05/23 (01/05/23: MET GOAL) . Health Management Consultant Goal (LTG) Pt will be educated in a self care HEP of R ankle ROM and strengthening ex's and general LE strengthening exercises. 01/02/23: I/S pt in R ankle AROM and garrett DF/PF ex. 01/08/23: I/S pt in R ankle DF /EV active with end-range garrett w/Lev1 TBand. 01/18/23: I/S pt in R ankle Active PF/DF to work up to 10x 3, then start standing PF w/ both ankles. 01/25/23: added uneven surface heel raises with support needed, resisted TB IV and heel toe/toe heel walking, lakshmi rolling pin massage to calf/ achilles. LTG Duration 03/23/23 progressed 01/25/23. Assessment Summary Assessment Pt postop R ankle replacement and Brostrom lateral ligament repair 11/06/22. She demonstrated notable limp with gait. Pt was not able to coordinate correction of R forefoot AB/ankle EV on swing through phase with previous corrections for gait, but was able to make gait correction when focusing on swing through foot only. Pt needs much more practice, but pt feels confident she will be able to accomplish in 1 week. Pt encouraged to get new shoes to help her maintain neutral on heel strike through stance phase. Physical Therapy Plan Frequency and Duration Frequency of Treatment 1x/Week Plan of Care Start Date 02/05/23 Plan of Care End Date 03/23/23 Next Visit Focus/Plan Next Note Type Treatment Note Next Visit Plan Assess if pt able to get new shoes to help her with stability of R ankle from heel strike to swing through phase . Add Neuro-luis: proprioceptive re-education and balance. Issue handouts if needed for ankle AROM ex and resisted ankle ex's. Add Toe ROM ex's & progress R ankle strengthening. End CP with LE elevated unless pt chooses to ice at home. (Referral for: modalities, progressive resistance ex's including ecc strengthening, proprioceptive re-education. AVOID: Excessive PF/IV).
--- NOTE | 2023-02-26 15:30 | PT.OTN ---
Current Diagnoses Presence of right artificial ankle joint (02/26/23) Physical Therapy Treatment Note PT-OP-A Visit Information Start: 12/21/22 18:10 Freq: Status: Active Protocol: Document 02/26/23 14:36 SP (Rec: 02/26/23 15:55 SP [id number]) Out-Patient Physical Therapy Visit Information Visit Information Visit Type Treatment Note Visit Note MARK Jerry assist with manual tx and ther ex instruction while under direct supervision and guidence as needed from SWIMMING POOL ATTENDANT Cristy. Visit Start Time 14:36 Visit Stop Time 15:30 Total Visit Minutes 54 Visit Number 10 Number of SWIMMING POOL ATTENDANT Visits 1 Evaluation Information Evaluation Date 12/25/22 Precautions Precautions DOS: 11/06/22, Saw ortho in December and stated nothing can't do, follow up in 1 yr unless need sooner. Referral/protocol from [facility] in [place] for s/p R ankle replacement and Brostrom lateral ligament repair. PT-OP-B Current Condition Start: 12/21/22 18:10 Freq: Status: Active Protocol: Document 12/25/22 11:19 LRN (Rec: 12/25/22 12:32 LRN [id number]) Current Condition History of Current Condition Onset Date 11/06/22 Current Complaints Constant ache in the R ankle and need to transition from walking boot. History of Current Condition 11/06/22 R ankle replacement and Brostrom lateral ligament repair, at [facility] in [place], [place]. Pt reports spending one night in hospital before discharge home. Pt's R foot has been in a splint/NWBing for 2 weeks and then was casted/NWBing for 2 more weeks before being placed in a walking boot brace . Pt is now 7 weeks post- operation. States she is now supposed to transition to a soft brace but first needs to obtain one. She states she is walking around the house and the yard without an assistive device, and has walked without her walking boot in the house . With the walking boot she can't get up/down from the ground to do gardening very well, stating is doesn't hurt but just difficult. She tolerates ~3 hrs of gardening, before the ankle aches, requiring her to go in to elevate and ice the R ankle. States she is used to being very active with her gardening and horse training, but currently is staying away from the horse for obvious reasons . Future Testing and Treatments Planned Next MD visit: 3 weeks. Treatment Goals Patient/Caregiver Goals Pt is to get back to what she was doing before. Example: get up /don off the ground, strengthen the legs (wasn't exercising before the surgery because of pain). To function better: step in/out of tub with hand hold assist, and stand for showers, walk better to be able to walk up and down her road (1/2 mile = half way down the road), and able tolerate incline ambulation ( driveways). Tolerate gardening for 4-5 hours. Prior Functional Status Baseline Function- ADL's Independent Baseline Function- Mobility Independent Baseline Function- Recreation/Hobbies Working with her horse, requires running or walking fast to get out of the horse's way. Idea is to train the horse to ride. Gardens constantly (kneel, prune trees, goes up/down ladders) Current Functional Impairments (Reported) Functional Limitations- ADL's Independent. Functional Limitations- Mobility/Gait Ambulates with walking boot and antalgic gait without assistive device, independently. R ankle pain with walking. Functional Limitations- Recreation/ Not able to train her horse. Hobbies Not able to garden (kneel, prune trees, taverse up/down ladders) Personal Factors Other Personal Factors That May Effect [place] on 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 PT-OP-C Subjective Start: 12/21/22 18:10 Freq: Status: Active Protocol: Document 02/26/23 14:36 SP (Rec: 02/26/23 15:55 SP [id number]) OP-PT Subjective Patient Comments Patient Comments Pt reports tripping over a rock and falling backward and more left yesterday. She arrives with R ankle fig 8 strap/brace support, soreness med/lateral. PT-OP-E Functional Tests Start: 12/21/22 18:10 Freq: Status: Active Protocol: Document 02/12/23 11:16 LRN (Rec: 02/12/23 14:50 LRN [id number]) Functional Tests 6 Minute Walk Test Distance 1125.4 ft Device Used None Comments Dysfunctional gait and posture . Tennis shoe looking [employer] shoes PT-OP-G Mobility & Gait Start: 12/21/22 18:10 Freq: Status: Active Protocol: Document 01/29/23 12:34 LRN (Rec: 01/29/23 13:19 LRN [id number]) Stair Climbing Evaluation Evaluation Level of Assist On Stairs Independent Devices Stair Climbing Assistive Devices Left Railing,Right Railing Technique/Endurance Stair Climbing Direction Ascend and Descend Stair Climbing Technique Step Over Step Number of Steps Climbed 4 Stair Climbing Set # Repetitions (reps) 1 Comments Stair Climbing Comments Pt lacks foot PF and lands flat foot on stepping up on stair. Able to control descent with use of railing. PT-OP-H Neuro Start: 12/21/22 18:10 Freq: Status: Active Protocol: Document 12/25/22 11:19 LRN (Rec: 12/25/22 12:32 LRN [id number]) Sensation Evaluation Gross Sensation Gross Sensation Right LE Impaired Sensation Description Numbness Comments Summary Comments Decreased sensation of R foot along well healed scar ( anterior ankle) and around healing scar on the lateral side of the R foot. Normal sensation on the bottom of the R foot. PT-OP-J Posture/Palpation/Skin Start: 12/21/22 18:10 Freq: Status: Active Protocol: Document 12/25/22 11:19 LRN (Rec: 12/25/22 12:32 LRN [id number]) Posture Evaluation Position Standing L-Spine Posture Decreased Lordosis Shoulder Posture (R) Elevated Pelvis Posture Posterior Tilted,(R) Iliac Crest Superior,(L) ASIS Posterior Weight Distribution Weight Shifted Left Ankle/Foot Posture (L) Neutral,(R) Neutral Foot Arch (L) High Arch,(R) High Arch Comments Posture Comments Bunion bilaterally, Big toe adducted. Palpation Assessment Location R heel Palpation Location R heel Palpation Findings Edema R ankle Palpation Location R ankle joint Palpation Findings Edema,Soft Tissue Tightness, Tenderness Skin Assessment Circumference Measurement L ankle Fig 8 Location L ankle Fig 8 Measurement (Centimeters) 47.5 Comments Ankle is normal in temperature and skin color. R ankle Fig 8 Location R ankle Fig 8 Measurement (Centimeters) 57 Comments Ankle is warm to touch, swollen, skin shiny and red. PT-OP-K Range of Motion Start: 12/21/22 18:10 Freq: Status: Active Protocol: Document 12/25/22 11:19 LRN (Rec: 12/25/22 12:32 LRN [id number]) Knee Goniometric Range of Motion Knee Right Knee ROM WFL Yes Left Knee ROM WFL Yes Ankle and Foot Goniometric Range of Motion Ankle and Foot Right Active Ankle/Foot ROM WFL No Testing Position Supine Plantarflexion 26 Comments Lack 2 deg's DF with knee extended Deferred testing Ankle IV/EV per pt report to not perform side to side movement. Left Active Ankle/Foot ROM WFL Yes Testing Position Supine Dorsiflexion with Knee Extended 18 Plantarflexion 43 Inversion 25 Eversion 10 Toe Range of Motion Toe Right Great Toe Toe ROM WFL No MTP Flexion Active (degrees) 15 MTP Extension Active (degrees) 22 Left Great Toe Toe ROM WFL Yes MTP Flexion Active (degrees) 60 MTP Extension Active (degrees) 52 PT-OP-M Strength Start: 12/21/22 18:10 Freq: Status: Active Protocol: Document 12/25/22 11:19 LRN (Rec: 12/25/22 12:32 LRN [id number]) Knee Strength Knee Manual Muscle Testing Right Flexion (S2) 5 Normal Extension (L3) 5 Normal Left Flexion (S2) 5 Normal Extension (L3) 5 Normal Ankle/Foot Strength Ankle and Foot Manual Muscle Testing Right Comments Deferred due to recent surgery . Pt was able to demonstrate active DF/PF within available ROM. Left Dorsiflexion (L4) 5 Normal Plantarflexion (S1) 5 Normal Inversion 5 Normal Eversion (S1) 5 Normal Toe Strength Toe Manual Muscle Testing Right Great Toe Flexion 4 Good Extension 5 Normal Left Great Toe Flexion 5 Normal Extension 3 Fair PT-OP-Q Treatments Start: 12/21/22 18:10 Freq: Status: Active Protocol: Document 02/26/23 14:36 SP (Rec: 02/26/23 15:55 SP [id number]) Therapeutic Exercises Sitting Exercises BAPS Sitting Exercise Name R ankle PF/DF Side right Resistance #5>#4 Reps/Minutes 15x Comments pain 4/10 eversion, cues slow controlled. ankle 4 way Sitting Exercise Name 3 way TB, Isometric IV Side right Resistance TB #2 orange, IV isometric ( due to pain resistance) Reps/Minutes 15 x 2 EV, 5 SH x10 for IV Comments extra time spent finding modification IV tolerant hold TB add isometric Standing Exercises ankle mobility Standing Exercise Name added to HEP for increase self mobiltiy Side right Reps/Minutes 2 min total Comments manual and self application- good feedback heel toe, toe heel walkig Standing Exercise Name fwd Side bilateral Resistance AROM Reps/Minutes 20 ft Comments cued increase JAYA 4-6 apart improved ankle stability. Heel raises Standing Exercise Name double ascend/RLE single descend Side bilateral Equipment Used PRN Reps/Minutes x8 reps Comments low discomfort and tiring. R Gastroc stretch Side right Equipment Used rail support Reps/Minutes x2 reps 15SH Comments heel down then slight bent tolerant range Manual Therapy Treatment Soft Tissue Mobilization R scar Body Location R anterior ankle scar Mobilization Type Myofascial Release Intensity/Depth superficial>moderate Body Position Sitting Comments manual and ed self application RLE over L knee R foot Body Location R mid>distal Medial soleus, achilles Mobilization Type Myofascial Release,Strumming, Sustained Pressure,Other Intensity/Depth Superficial Body Position Sitting Comments manual with ed self application, MWM with ankle pump DF/ PF,IV EV. Retrograde support fluid return still little swollen. Joint Mobilizations R ankle Joint calcaneal med/lat, forefoot general med/lat rotation, MTP 1-5 AP/PA Grade II Comments good feedback response manual and ed self application. Neuro Re-Education Treatment Balance Activities SLS Details no hands Surface Level Equipment bottom stair rail PRN Comments RLE 7-9 sec LLE 5 sec Improved time with cues for elongation posturing, core/ scap complex facilitation over stance LE. Self-Care/Home Management Treatment Education Patient Education Home Exercise Program,Pain Management,Safety Other Education Time manual/ed and self performance carryover R ankle tarsal mobility with good feedback less stiff during exercises. Added ankle mobility (declined HO) at step and eccentric Double to Single eccentric calf raise to HEP. PT-OP-R Modalities Start: 12/21/22 18:10 Freq: Status: Active Protocol: Document 02/26/23 14:36 SP (Rec: 02/26/23 15:55 SP [id number]) Hot Pack/Cold Pack Treatment Cold Pack Location R ankle Patient Position Supine Treatment Duration (minutes) 10 Patient Tolerance Good Comments Supine with RLE on pillow PT-OP-T Assessment and Plan Start: 12/21/22 18:10 Freq: Status: Active Protocol: Document 02/26/23 14:36 SP (Rec: 02/26/23 15:55 SP [id number]) Physical Therapy Assessment Goals Five Impairment Decreased R big toe ROM and strength Impairment R big toe MTP AROM: ext: 22 deg's, flex: 15 deg's. L big toe MTP AROM: ext: 52 deg's, flex: 60 deg's. R big toe strength: flex: 4/ 5, ext: 5/5 R big toe strength: flex: 4/ 5, ext: 3/5 Short Term Goal (STG) Improve Big toe flex/ext strength to 5/5. STG Duration 02/09/23 Advanced Practice Registered Nurse Goal (LTG) Improve R big toe ext AROM to normal with pt able to walk in normal shoes on level surface with a normal gait. LTG Duration 03/23/23 Three Impairment Decreased R ankle strength Impairment R ankle strength: initially not formally tested. Pt able to partially move DF/PF against gravity within available range; therefore rated 2-/5. Short Term Goal (STG) Improve R ankle with pt able to step in/out of tub with hand support, and safely stand for showers. 01/25/23: GOAL MET: pt able step in/out shower with light contact toiletry stand fine. STG Duration 02/09/23 GOAL MET 01/25/23 Advanced Practice Registered Nurse Goal (LTG) Improve RLE strength to improve pt ability to walk and improve her tolerance to walk up and down her road (1/2 mile = half way down the road) with tolerable pain. 01/25/23: progressing: hasn't walking on road, has walked with ankle brace house to/from barn uneven ground approx 300 ft and cautious not step in hole with no problems reported . LTG Duration 03/23/23 progressing 01/25/23 Two Impairment Decreased R ankle AROM Advanced Practice Registered Nurse Goal (LTG) Pt will be able tolerate incline ambulation (driveways) with tolerable ankle pain. 01/25/23; no incline driveway to assess. LTG Duration 03/23/23 One Impairment Lacks appropriate self care HEP. Short Term Goal (STG) Pt will be educated in self care edema/pain mangement. 01/05/23: Pt educated in RICE & contrast bath technique. STG Duration 01/05/23 (01/05/23: MET GOAL) . Mcfp Goal (LTG) Pt will be educated in a self care HEP of R ankle ROM and strengthening ex's and general LE strengthening exercises. 01/02/23: I/S pt in R ankle AROM and garrett DF/PF ex. 01/08/23: I/S pt in R ankle DF /EV active with end-range garrett w/Lev1 TBand. 01/18/23: I/S pt in R ankle Active PF/DF to work up to 10x 3, then start standing PF w/ both ankles. 01/25/23: added uneven surface heel raises with support needed, resisted TB IV and heel toe/toe heel walking, alkshmi rolling pin massage to calf/ achilles. LTG Duration 03/23/23 progressed 01/25/23. Assessment Summary Assessment Reports more medial 4/10 pain with BAPS IV today. Pt improved decrease pain post manual and able to increase SLS and initiated Double to Single eccentric calf raise and reviewed heel toe walking this tx. Physical Therapy Plan Frequency and Duration Frequency of Treatment 1x/Week Plan of Care Start Date 02/05/23 Plan of Care End Date 03/23/23 Therapeutic Interventions Therapeutic Interventions Balance Training,Gait Training ,Home Exercise Program,Manual Therapy,Patient/Caregiver Education,Self-Care/Home Management,Soft Tissue Mobilization,Taping, Therapeutic Activities, Therapeutic Exercises Modalities Cold Pack/Ice Massage,Hot Packs Next Visit Focus/Plan Next Note Type Treatment Note Next Visit Plan PN in 2 visits (12th visit). Check goal progression. Assess if pt able to get new shoes to help her with stability of R ankle from heel strike to swing through phase. Recheck added manual, eccentric single calf raise and ankle mobility . Add band/monster walk, descend stairs, SLS uneven surface, 3 way hip, star glides. Neuro-luis: proprioceptive re-education and balance. Issue handouts if needed for ankle AROM ex and resisted ankle ex's. Add Toe ROM ex's & progress R ankle strengthening. End CP with LE elevated unless pt chooses to ice at home. (Referral for: modalities, progressive resistance ex's including ecc strengthening, proprioceptive re-education. AVOID: Excessive PF/IV).
--- NOTE | 2023-03-05 11:42 | PT.OTN ---
Current Diagnoses Presence of right artificial ankle joint (03/05/23) Physical Therapy Treatment Note PT-OP-A Visit Information Start: 12/21/22 18:10 Freq: Status: Active Protocol: Document 03/05/23 10:50 SP (Rec: 03/05/23 11:35 SP [id number]) Out-Patient Physical Therapy Visit Information Visit Information Visit Type Treatment Note Visit Start Time 10:50 Visit Stop Time 11:42 Total Visit Minutes 52 Visit Number 11 Number of SALESPERSON SHOES Visits 2 Evaluation Information Evaluation Date 12/25/22 Precautions Precautions DOS: 11/06/22, Saw ortho in December and stated nothing can't do, follow up in 1 yr unless need sooner. Referral/protocol from [facility] in [place] for s/p R ankle replacement and Brostrom lateral ligament repair. PT-OP-B Current Condition Start: 12/21/22 18:10 Freq: Status: Active Protocol: Document 12/25/22 11:19 LRN (Rec: 12/25/22 12:32 LRN [id number]) Current Condition History of Current Condition Onset Date 11/06/22 Current Complaints Constant ache in the R ankle and need to transition from walking boot. History of Current Condition 11/06/22 R ankle replacement and Brostrom lateral ligament repair, at [facility] in [place], [place]. Pt reports spending one night in hospital before discharge home. Pt's R foot has been in a splint/NWBing for 2 weeks and then was casted/NWBing for 2 more weeks before being placed in a walking boot brace . Pt is now 7 weeks post- operation. States she is now supposed to transition to a soft brace but first needs to obtain one. She states she is walking around the house and the yard without an assistive device, and has walked without her walking boot in the house . With the walking boot she can't get up/down from the ground to do gardening very well, stating is doesn't hurt but just difficult. She tolerates ~3 hrs of gardening, before the ankle aches, requiring her to go in to elevate and ice the R ankle. States she is used to being very active with her gardening and horse training, but currently is staying away from the horse for obvious reasons . Future Testing and Treatments Planned Next MD visit: 3 weeks. Treatment Goals Patient/Caregiver Goals Pt is to get back to what she was doing before. Example: get up /don off the ground, strengthen the legs (wasn't exercising before the surgery because of pain). To function better: step in/out of tub with hand hold assist, and stand for showers, walk better to be able to walk up and down her road (1/2 mile = half way down the road), and able tolerate incline ambulation ( driveways). Tolerate gardening for 4-5 hours. Prior Functional Status Baseline Function- ADL's Independent Baseline Function- Mobility Independent Baseline Function- Recreation/Hobbies Working with her horse, requires running or walking fast to get out of the horse's way. Idea is to train the horse to ride. Gardens constantly (kneel, prune trees, goes up/down ladders) Current Functional Impairments (Reported) Functional Limitations- ADL's Independent. Functional Limitations- Mobility/Gait Ambulates with walking boot and antalgic gait without assistive device, independently. R ankle pain with walking. Functional Limitations- Recreation/ Not able to train her horse. 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 PT-OP-C Subjective Start: 12/21/22 18:10 Freq: Status: Active Protocol: Document 03/05/23 10:50 SP (Rec: 03/05/23 11:35 SP [id number]) OP-PT Subjective Patient Comments Patient Comments Pt reports R ankle sore and not sure if its the exercises or doing to much daily activities, does garden design and planting. PT-OP-E Functional Tests Start: 12/21/22 18:10 Freq: Status: Active Protocol: Document 02/12/23 11:16 LRN (Rec: 02/12/23 14:50 LRN [id number]) Functional Tests 6 Minute Walk Test Distance 1125.4 ft Device Used None Comments Dysfunctional gait and posture . Tennis shoe looking [employer] shoes PT-OP-G Mobility & Gait Start: 12/21/22 18:10 Freq: Status: Active Protocol: Document 01/29/23 12:34 LRN (Rec: 01/29/23 13:19 LRN [id number]) Stair Climbing Evaluation Evaluation Level of Assist On Stairs Independent Devices Stair Climbing Assistive Devices Left Railing,Right Railing Technique/Endurance Stair Climbing Direction Ascend and Descend Stair Climbing Technique Step Over Step Number of Steps Climbed 4 Stair Climbing Set # Repetitions (reps) 1 Comments Stair Climbing Comments Pt lacks foot PF and lands flat foot on stepping up on stair. Able to control descent with use of railing. PT-OP-H Neuro Start: 12/21/22 18:10 Freq: Status: Active Protocol: Document 12/25/22 11:19 LRN (Rec: 12/25/22 12:32 LRN [id number]) Sensation Evaluation Gross Sensation Gross Sensation Right LE Impaired Sensation Description Numbness Comments Summary Comments Decreased sensation of R foot along well healed scar ( anterior ankle) and around healing scar on the lateral side of the R foot. Normal sensation on the bottom of the R foot. PT-OP-J Posture/Palpation/Skin Start: 12/21/22 18:10 Freq: Status: Active Protocol: Document 12/25/22 11:19 LRN (Rec: 12/25/22 12:32 LRN [id number]) Posture Evaluation Position Standing L-Spine Posture Decreased Lordosis Shoulder Posture (R) Elevated Pelvis Posture Posterior Tilted,(R) Iliac Crest Superior,(L) ASIS Posterior Weight Distribution Weight Shifted Left Ankle/Foot Posture (L) Neutral,(R) Neutral Foot Arch (L) High Arch,(R) High Arch Comments Posture Comments Bunion bilaterally, Big toe adducted. Palpation Assessment Location R heel Palpation Location R heel Palpation Findings Edema R ankle Palpation Location R ankle joint Palpation Findings Edema,Soft Tissue Tightness, Tenderness Skin Assessment Circumference Measurement L ankle Fig 8 Location L ankle Fig 8 Measurement (Centimeters) 47.5 Comments Ankle is normal in temperature and skin color. R ankle Fig 8 Location R ankle Fig 8 Measurement (Centimeters) 57 Comments Ankle is warm to touch, swollen, skin shiny and red. PT-OP-K Range of Motion Start: 12/21/22 18:10 Freq: Status: Active Protocol: Document 12/25/22 11:19 LRN (Rec: 04/03/23 12:32 LRN [id number]) Knee Goniometric Range of Motion Knee Right Knee ROM WFL Yes Left Knee ROM WFL Yes Ankle and Foot Goniometric Range of Motion Ankle and Foot Right Active Ankle/Foot ROM WFL No Testing Position Supine Plantarflexion 26 Comments Lack 2 deg's DF with knee extended Deferred testing Ankle IV/EV per pt report to not perform side to side movement. Left Active Ankle/Foot ROM WFL Yes Testing Position Supine Dorsiflexion with Knee Extended 18 Plantarflexion 43 Inversion 25 Eversion 10 Toe Range of Motion Toe Right Great Toe Toe ROM WFL No MTP Flexion Active (degrees) 15 MTP Extension Active (degrees) 22 Left Great Toe Toe ROM WFL Yes MTP Flexion Active (degrees) 60 MTP Extension Active (degrees) 52 PT-OP-M Strength Start: 12/21/22 18:10 Freq: Status: Active Protocol: Document 12/25/22 11:19 LRN (Rec: 12/25/22 12:32 LRN [id number]) Knee Strength Knee Manual Muscle Testing Right Flexion (S2) 5 Normal Extension (L3) 5 Normal Left Flexion (S2) 5 Normal Extension (L3) 5 Normal Ankle/Foot Strength Ankle and Foot Manual Muscle Testing Right Comments Deferred due to recent surgery . Pt was able to demonstrate active DF/PF within available ROM. Left Dorsiflexion (L4) 5 Normal Plantarflexion (S1) 5 Normal Inversion 5 Normal Eversion (S1) 5 Normal Toe Strength Toe Manual Muscle Testing Right Great Toe Flexion 4 Good Extension 5 Normal Left Great Toe Flexion 5 Normal Extension 3 Fair PT-OP-Q Treatments Start: 12/21/22 18:10 Freq: Status: Active Protocol: Document 03/05/23 10:50 SP (Rec: 03/05/23 11:35 SP [id number]) Therapeutic Exercises Supine Exercises R Big Toe Side right Comments good demonstration no issues Sitting Exercises BAPS Sitting Exercise Name R ankle PF/DF/IV/EV/ CW/ CCW Side right Resistance #4 (showed tennis ball for home, good performance) Reps/Minutes 8reps each surface and direction Comments report just harder/less ROM EV but painfree all directions R Ankle PF/DF Sitting Exercise Name PF hammock con/ecc DF (velasquez, over toes, calf) Side right Resistance G TB Reps/Minutes 15x each Comments cued slow eccentric DF Standing Exercises ankle mobility Standing Exercise Name reviewed HEP for increase self mobiltiy Side right Reps/Minutes 2 min total Comments manual and self application- good feedback Step ups/downs Standing Exercise Name Step up/down on 6 step - R toe up & ECC down on reverse Side bilateral Resistance 6 step, 4 step + blue foam Equipment Used Railing as needed Reps/Minutes 15x each LE and surface Comments good feedback response, improved uneven stab with reps heel toe, toe heel walkig Standing Exercise Name fwd Side bilateral Resistance AROM Reps/Minutes 20 ft x3 lasp Comments cued 4 apart, slow heel toe, core fac with elongation trunk for stabiltiy Heel raises Standing Exercise Name double ascend/RLE single descend Side bilateral Equipment Used rail support, on floor Reps/Minutes x8 reps Comments reports tiring achiness R Gastroc stretch Side right Equipment Used rail support Reps/Minutes x2 reps 15SH Comments heel down then slight bent tolerant range Manual Therapy Treatment Soft Tissue Mobilization R scar Body Location R anterior ankle scar Mobilization Type Myofascial Release Intensity/Depth superficial>moderate Body Position Sitting Comments manual and ed self application RLE over L knee Joint Mobilizations R ankle Joint calcaneal med/lat, forefoot general med/lat rotation, MTP 1-5 AP/PA Grade II Body Position Sitting Reps/Duration 2 min total therapist & self Comments good feedback response manual and ed self application. More freedom glide with BAPS post. Taping R scar Body Location anterior scar Treatment Focus improve scar mobility Type of Tape Kinesio Tape Skin Inspection Good Neuro Re-Education Treatment Balance Activities SLS Details no hands Surface Level Equipment bottom stair rail PRN Comments RLE 14 sec LLE 20 sec Improved time with cues for elongation posturing, core/ scap complex facilitation over stance LE. PT-OP-R Modalities Start: 12/21/22 18:10 Freq: Status: Active Protocol: Document 03/05/23 10:50 SP (Rec: 03/05/23 11:35 SP [id number]) Hot Pack/Cold Pack Treatment Cold Pack Location R ankle Patient Position Supine Treatment Duration (minutes) 10 Patient Tolerance Good Comments Supine with RLE on pillow PT-OP-T Assessment and Plan Start: 12/21/22 18:10 Freq: Status: Active Protocol: Document 03/05/23 10:50 SP (Rec: 03/05/23 11:35 SP [id number]) Physical Therapy Assessment Goals Five Impairment Decreased R big toe ROM and strength Impairment R big toe MTP AROM: ext: 22 deg's, flex: 15 deg's. L big toe MTP AROM: ext: 52 deg's, flex: 60 deg's. R big toe strength: flex: 4/ 5, ext: 5/5 R big toe strength: flex: 4/ 5, ext: 3/5 Short Term Goal (STG) Improve Big toe flex/ext strength to 5/5. STG Duration 02/09/23 Balloon Maker Goal (LTG) Improve R big toe ext AROM to normal with pt able to walk in normal shoes on level surface with a normal gait. LTG Duration 03/23/23 Three Impairment Decreased R ankle strength Impairment R ankle strength: initially not formally tested. Pt able to partially move DF/PF against gravity within available range; therefore rated 2-/5. Short Term Goal (STG) Improve R ankle with pt able to step in/out of tub with hand support, and safely stand for showers. 01/25/23: GOAL MET: pt able step in/out shower with light contact toiletry stand fine. STG Duration 02/09/23 GOAL MET 01/25/23 Custodial Goal (LTG) Improve RLE strength to improve pt ability to walk and improve her tolerance to walk up and down her road (1/2 mile = half way down the road) with tolerable pain. 01/25/23: progressing: hasn't walking on road, has walked with ankle brace house to/from barn uneven ground approx 300 ft and cautious not step in hole with no problems reported . 03/05/23: progressing, hasn't tried walking on road yet, will try before next tx. She is walking to from barn uneven ground approx [address] 4 times daily. LTG Duration 03/23/23 progressing 03/05/23 Two Impairment Decreased R ankle AROM Custodial Goal (LTG) Pt will be able tolerate incline ambulation (driveways) with tolerable ankle pain. 01/25/23; no incline driveway to assess. LTG Duration 03/23/23 One Impairment Lacks appropriate self care HEP. Short Term Goal (STG) Pt will be educated in self care edema/pain mangement. 01/05/23: Pt educated in RICE & contrast bath technique. STG Duration 01/05/23 (01/05/23: MET GOAL) . Balloon Maker Goal (LTG) Pt will be educated in a self care HEP of R ankle ROM and strengthening ex's and general LE strengthening exercises. 01/02/23: I/S pt in R ankle AROM and garrett DF/PF ex. 01/08/23: I/S pt in R ankle DF /EV active with end-range garrett w/Lev1 TBand. 01/18/23: I/S pt in R ankle Active PF/DF to work up to 10x 3, then start standing PF w/ both ankles. 01/25/23: added uneven surface heel raises with support needed, resisted TB IV and heel toe/toe heel walking, lakshmi rolling pin massage to calf/ achilles. 03/05/23: progressing modified PF/ eccentric DF hammock toe flex/ext, increased resistance #3 TB, modified SL eccentric heel raise on floor with contact support better supported. Reviewed self manual tarsal glides and ankle mobility pre out door walking to allow less stiffness. LTG Duration 03/23/23 progressed 03/05/23. Assessment Summary Assessment Pt improvement stability toe heel walk, manual and self ankle mobility pos manual and review self application. She reports no/less pinching/ stiffness anterior ankle during BAPS and how can perform on tennis ball home post manual for self. Physical Therapy Plan Frequency and Duration Frequency of Treatment 1x/Week Plan of Care Start Date 02/05/23 Plan of Care End Date 03/23/23 Therapeutic Interventions Therapeutic Interventions Balance Training,Gait Training ,Home Exercise Program,Manual Therapy,Patient/Caregiver Education,Self-Care/Home Management,Soft Tissue Mobilization,Taping, Therapeutic Activities, Therapeutic Exercises Modalities Cold Pack/Ice Massage,Hot Packs Next Visit Focus/Plan Next Note Type Treatment Note Next Visit Plan PN in 1 visits (12th visit). Check goal progression. Add calf strengthening, ankle stability: band walk lateral stepping, rocker board, shuttle balance. Assess if pt able to get new shoes to help her with stability of R ankle from heel strike to swing through phase . Recheck added manual, eccentric single calf raise and ankle mobility. Add band/ monster walk, descend stairs, SLS uneven surface, 3 way hip, star glides. Neuro-luis: proprioceptive re-education and balance. Issue handouts if needed for ankle AROM ex and resisted ankle ex's. Add Toe ROM ex's & progress R ankle strengthening. End CP with LE elevated unless pt chooses to ice at home. (Referral for: modalities, progressive resistance ex's including ecc strengthening, proprioceptive re-education. AVOID: Excessive PF/IV).
--- NOTE | 2023-03-19 18:37 | PT.OTN ---
Current Diagnoses Presence of right artificial ankle joint (03/19/23) Physical Therapy Treatment Note PT-OP-A Visit Information Start: 12/21/22 18:10 Freq: Status: Active Protocol: Document 03/19/23 12:35 LRN (Rec: 03/19/23 13:20 LRN [id number]) Out-Patient Physical Therapy Visit Information Visit Information Visit Type Treatment Note Visit Start Time 12:35 Visit Stop Time 13:19 Total Visit Minutes 46 Visit Number 12 Evaluation Information Evaluation Date 12/25/22 Precautions Precautions DOS: 11/06/22, Saw ortho in December and stated nothing can't do, follow up in 1 yr unless need sooner. Referral/protocol from [facility] in [place] for s/p R ankle replacement and Brostrom lateral ligament repair. PT-OP-B Current Condition Start: 12/21/22 18:10 Freq: Status: Active Protocol: Document 12/25/22 11:19 LRN (Rec: 12/25/22 12:32 LRN [id number]) Current Condition History of Current Condition Onset Date 11/06/22 Current Complaints Constant ache in the R ankle and need to transition from walking boot. History of Current Condition 11/06/22 R ankle replacement and Brostrom lateral ligament repair, at [facility] in [place], [place]. Pt reports spending one night in hospital before discharge home. Pt's R foot has been in a splint/NWBing for 2 weeks and then was casted/NWBing for 2 more weeks before being placed in a walking boot brace . Pt is now 7 weeks post- operation. States she is now supposed to transition to a soft brace but first needs to obtain one. She states she is walking around the house and the yard without an assistive device, and has walked without her walking boot in the house . With the walking boot she can't get up/down from the ground to do gardening very well, stating is doesn't hurt but just difficult. She tolerates ~3 hrs of gardening, before the ankle aches, requiring her to go in to elevate and ice the R ankle. States she is used to being very active with her gardening and horse training, but currently is staying away from the horse for obvious reasons . Future Testing and Treatments Planned Next MD visit: 3 weeks. Treatment Goals Patient/Caregiver Goals Pt is to get back to what she was doing before. Example: get up /don off the ground, strengthen the legs (wasn't exercising before the surgery because of pain). To function better: step in/out of tub with hand hold assist, and stand for showers, walk better to be able to walk up and down her road (1/2 mile = half way down the road), and able tolerate incline ambulation ( driveways). Tolerate gardening for 4-5 hours. Prior Functional Status Baseline Function- ADL's Independent Baseline Function- Mobility Independent Baseline Function- Recreation/Hobbies Working with her horse, requires running or walking fast to get out of the horse's way. Idea is to train the horse to ride. Gardens constantly (kneel, prune trees, goes up/down ladders) Current Functional Impairments (Reported) Functional Limitations- ADL's Independent. Functional Limitations- Mobility/Gait Ambulates with walking boot and antalgic gait without assistive device, independently. R ankle pain with walking. Functional Limitations- Recreation/ Not able to train her horse. 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 PT-OP-C Subjective Start: 12/21/22 18:10 Freq: Status: Active Protocol: Document 03/19/23 12:35 LRN (Rec: 03/19/23 13:20 LRN [id number]) OP-PT Subjective Patient Comments Patient Comments Ankle has been doing pretty good. Pretty good with walking and doing stairs, doing ex's and can still feel it is sore, but doesn't notice it as much. Onset of back pain a couple days ago, making her limp, but she states prior to the back pain she was walking normal. Pt states she feels ready to be placed on HEP. Patient Questionnaires Foot & Ankle Ability Measure- ADL and Sports FAAM-ADL Score 63 FAAM-ADL Impairment 20 to 39% Impaired (Score 50- 66) Quick Dash- Upper Extremity Quick Dash UE Score 58 Quick Dash UE Impairment 40 to 59% Impaired (Score 40- 59) PT-OP-E Functional Tests Start: 12/21/22 18:10 Freq: Status: Active Protocol: Document 02/12/23 11:16 LRN (Rec: 02/12/23 14:50 LRN [id number]) Functional Tests 6 Minute Walk Test Distance 1125.4 ft Device Used None Comments Dysfunctional gait and posture . Tennis shoe looking [employer] shoes PT-OP-G Mobility & Gait Start: 12/21/22 18:10 Freq: Status: Active Protocol: Document 01/29/23 12:34 LRN (Rec: 01/29/23 13:19 LRN [id number]) Stair Climbing Evaluation Evaluation Level of Assist On Stairs Independent Devices Stair Climbing Assistive Devices Left Railing,Right Railing Technique/Endurance Stair Climbing Direction Ascend and Descend Stair Climbing Technique Step Over Step Number of Steps Climbed 4 Stair Climbing Set # Repetitions (reps) 1 Comments Stair Climbing Comments Pt lacks foot PF and lands flat foot on stepping up on stair. Able to control descent with use of railing. PT-OP-H Neuro Start: 12/21/22 18:10 Freq: Status: Active Protocol: Document 12/25/22 11:19 LRN (Rec: 12/25/22 12:32 LRN [id number]) Sensation Evaluation Gross Sensation Gross Sensation Right LE Impaired Sensation Description Numbness Comments Summary Comments Decreased sensation of R foot along well healed scar ( anterior ankle) and around healing scar on the lateral side of the R foot. Normal sensation on the bottom of the R foot. PT-OP-J Posture/Palpation/Skin Start: 12/21/22 18:10 Freq: Status: Active Protocol: Document 12/25/22 11:19 LRN (Rec: 12/25/22 12:32 LRN [id number]) Posture Evaluation Position Standing L-Spine Posture Decreased Lordosis Shoulder Posture (R) Elevated Pelvis Posture Posterior Tilted,(R) Iliac Crest Superior,(L) ASIS Posterior Weight Distribution Weight Shifted Left Ankle/Foot Posture (L) Neutral,(R) Neutral Foot Arch (L) High Arch,(R) High Arch Comments Posture Comments Bunion bilaterally, Big toe adducted. Palpation Assessment Location R heel Palpation Location R heel Palpation Findings Edema R ankle Palpation Location R ankle joint Palpation Findings Edema,Soft Tissue Tightness, Tenderness Skin Assessment Circumference Measurement L ankle Fig 8 Location L ankle Fig 8 Measurement (Centimeters) 47.5 Comments Ankle is normal in temperature and skin color. R ankle Fig 8 Location R ankle Fig 8 Measurement (Centimeters) 57 Comments Ankle is warm to touch, swollen, skin shiny and red. PT-OP-K Range of Motion Start: 12/21/22 18:10 Freq: Status: Active Protocol: Document 03/19/23 12:35 LRN (Rec: 03/19/23 13:20 LRN [id number]) Ankle and Foot Goniometric Range of Motion Ankle and Foot Right Active Ankle/Foot ROM WFL No Testing Position Supine Dorsiflexion with Knee Extended 6 Plantarflexion 51 Inversion 13 Eversion 20 Left Active Ankle/Foot ROM WFL Yes Testing Position Supine Dorsiflexion with Knee Extended 18 Plantarflexion 43 Inversion 25 Eversion 10 Toe Range of Motion Toe Right Great Toe MTP Flexion Active (degrees) 32 MTP Extension Active (degrees) 26 Left Great Toe Toe ROM WFL Yes MTP Flexion Active (degrees) 45 MTP Extension Active (degrees) 28 PT-OP-M Strength Start: 12/21/22 18:10 Freq: Status: Active Protocol: Document 03/19/23 12:35 LRN (Rec: 03/19/23 13:20 LRN [id number]) Ankle/Foot Strength Ankle and Foot Manual Muscle Testing Right Inversion 3+ Fair+ Comments Pain limiting ankle IV strength Toe Strength Toe Manual Muscle Testing Right Great Toe Flexion 5 Normal Extension 5 Normal Left Great Toe Flexion 5 Normal Extension 5 Normal PT-OP-Q Treatments Start: 12/21/22 18:10 Freq: Status: Active Protocol: Document 03/19/23 12:35 LRN (Rec: 03/19/23 18:22 LRN [id number]) Therapeutic Exercises Supine Exercises Big Toe AROM Supine Exercise Name Big Toe AROM Side bilateral Comments ROM taken Ankle AROM Supine Exercise Name 4 way Ankle AROM Side bilateral Comments Ankle ROM taken Standing Exercises Heel raises Standing Exercise Name Heel raise Side bilateral Comments Pt not able to maintain balance LLE only; pt to do Alfred ankle ex Self-Care/Home Management Treatment Education Patient Education Home Exercise Program Other Education Discussed pt to work on balance by walking uneven ground, or strengthening all areas of ankle to improve the strength and stability of the R ankle. Activities Self-Care/Home Management Activities Issued & reviewed HEP: Ankle PF w/instructions to do with both feet until feeling strong enough to do with R foot only ; and Ankle DF, IV strengthening with TBand w/ instructions for pt to start with active IV until able to do 30 w/o ankle pain, then continue isometric until able to do 30 reps, then final progression with TBand for strengthening. PT-OP-R Modalities Start: 12/21/22 18:10 Freq: Status: Active Protocol: Document 03/05/23 10:50 SP (Rec: 03/05/23 11:35 SP [id number]) Hot Pack/Cold Pack Treatment Cold Pack Location R ankle Patient Position Supine Treatment Duration (minutes) 10 Patient Tolerance Good Comments Supine with RLE on pillow PT-OP-T Assessment and Plan Start: 12/21/22 18:10 Freq: Status: Active Protocol: Document 03/19/23 12:35 LRN (Rec: 03/19/23 13:20 LRN [id number]) Physical Therapy Assessment Goals Five Impairment Decreased R big toe ROM and strength Impairment R big toe MTP AROM: ext: 22 deg's, flex: 15 deg's. L big toe MTP AROM: ext: 52 deg's, flex: 60 deg's. R big toe strength: flex: 4/ 5, ext: 5/5 R big toe strength: flex: 4/ 5, ext: 3/5 Short Term Goal (STG) Improve Big toe flex/ext strength to 5/5. 03/19/23: R big toe flex/ext strength is 5/5. STG Duration 02/09/23 (03/19/23: MET GOAL ) Senior Care Goal (LTG) Improve R big toe ext AROM to normal with pt able to walk in normal shoes on level surface with a normal gait. 03/19/23: Big toe AROM: LTG Duration 03/23/23 (03/19/23: MET GOAL) Four Impairment R ankle Edema Impairment Fig 8 ankle msmt: 57 cm R, 47 .5 cm L Short Term Goal (STG) Decrease R ankle edema with pt able to get up /don off the ground with reported less difficulty. 01/25/23: GOAL MET: 50.5 cm circumference Fig 8 measurement. She reports ankle swelling doesn't seem to impede her on/off ground mostly B upper leg weakness w/ UE support. STG Duration 02/09/23 GOAL MET 01/25/23 [employer] Operator Goal (LTG) Decrease R ankle edema with pt able to tolerate gardening for 4-5 hours. 01/25/23: GOAL MET: able to work 4-5 hrs with achiness and needed to stop. LTG Duration 03/23/23 GOAL MET 01/25/23 Three Impairment Decreased R ankle strength Impairment R ankle strength: initially not formally tested. Pt able to partially move DF/PF against gravity within available range; therefore rated 2-/5. Short Term Goal (STG) Improve R ankle with pt able to step in/out of tub with hand support, and safely stand for showers. 01/25/23: GOAL MET: pt able step in/out shower with light contact toiletry stand fine. STG Duration 02/09/23 (GOAL MET 01/25/23) [employer] Operator Goal (LTG) Improve RLE strength to improve pt ability to walk and improve her tolerance to walk up and down her road (1/2 mile = half way down the road) with tolerable pain. 01/25/23: progressing: hasn't walking on road, has walked with ankle brace house to/from barn uneven ground approx 300 ft and cautious not step in hole with no problems reported . 03/05/23: progressing, hasn't tried walking on road yet, will try before next tx. She is walking to from barn uneven ground approx [address] times daily. 03/19/23: Walks 300ft x 6 a day on uneven ground. On road slowly without pain, walking heel to toe and with good posture. LTG Duration 03/23/23 (03/19/23: MET GOAL ) Two Impairment Decreased R ankle AROM [employer] Operator Goal (LTG) Pt will be able tolerate incline ambulation (driveways) with tolerable ankle pain. 01/25/23; no incline driveway to assess. 03/19/23: Pt reports she is able to walk on incline without ankle bothering her. LTG Duration 03/23/23 (03/19/23: MET GOAL) One Impairment Lacks appropriate self care HEP. Short Term Goal (STG) Pt will be educated in self care edema/pain mangement. 01/05/23: Pt educated in RICE & contrast bath technique. STG Duration 01/05/23 (01/05/23: MET GOAL) . [employer] Operator Goal (LTG) Pt will be educated in a self care HEP of R ankle ROM and strengthening ex's and general LE strengthening exercises. 01/02/23: I/S pt in R ankle AROM and garrett DF/PF ex. 01/08/23: I/S pt in R ankle DF /EV active with end-range garrett w/Lev1 TBand. 01/18/23: I/S pt in R ankle Active PF/DF to work up to 10x 3, then start standing PF w/ both ankles. 01/25/23: added uneven surface heel raises with support needed, resisted TB IV and heel toe/toe heel walking, self rolling pin massage to calf/achilles. 03/05/23: progressing modified PF/ eccentric DF hammock toe flex/ext, increased resistance #3 TB, modified SL eccentric heel raise on floor with contact support better supported. Reviewed self manual tarsal glides and ankle mobility pre out door walking to allow less stiffness. 03/19/23: HEP instruction in: progressive standing heel raises (ankle PF) and progressive ankle IV/DF strengthening. LTG Duration 03/23/23 (03/19/23: MET GOAL) Assessment Summary Assessment Pt ~17 weeks post op surgery. Pt appears to have good awareness of how to walk properly on uneven ground and notes she has been walking normal typically, but recently woke with LBP and is the reason for her antalgic gait today. The pt has tenderness at the R ankle and is decreased in mobility of the ankle and big toe with all motions except ankle EV as expected from her surgery. She has good R ankle and toe strength except with ankle IV and has pain with resisted IV. The pt needs to further work on improving her ankle IV strength, but she feels ready to continue on a home program. I feel the pt has shown good understanding of her ex's and has progressed well on her own. She may need therapy in the future for her ankle IV ROM and ankle strength as well as some soft tissue mobilization to the ankle if she is not able to achieve the return of function as expected. Physical Therapy Plan Frequency and Duration Frequency of Treatment 1x/Week Plan of Care Start Date 02/05/23 Plan of Care End Date 03/23/23 Discharge Physical Therapy Discharge Reasons Goals Met Discharge Comments See assessment above. Thank you for your referral.
== END 2023-04-10 15:43 | disposition home or self-care (01) ==
LOC: PHYS 12:30
PROVIDERS: Absent Provider Student in an Organized Health Care Education/Training Program; Family Provider Student in an Organized Health Care Education/Training Program; PCP Student in an Organized Health Care Education/Training Program; Referring Provider Orthopaedic Surgery; Visit Provider Orthopaedic Surgery
DX: Z96.661 Presence of right artificial ankle joint (principal)
CPT/HCPCS: 95851; 97010; 97110; 97112; 97116; 97140; 97162; 97535

== ENCOUNTER → 2023-09-06 11:11 | Outpatient (CLI) | payer MEDICARE, SELFPAY ==
--- NOTE | 2023-09-06 11:13 | DI.MG.S_ITS ---
BILATERAL DIGITAL SCREENING MAMMOGRAM 3D/2D WITH CAD: 09/06/2023 CLINICAL: Routine screening. Family history of breast cancer. Comparison is made to exams dated: 03/28/2022 mammogram, 02/07/2021 mammogram - [facility], and 04/06/2017 mammogram - [facility]. There are scattered areas of fibroglandular density in both breasts (category b / 25%-50% glandular tissue). Current study was also evaluated with a Computer Aided Detection (CAD) system. No significant masses, calcifications, or other findings are seen in either breast. There has been no significant interval change. IMPRESSION: NEGATIVE There is no mammographic evidence of malignancy. A 1 year screening mammogram is recommended. Based on the Tyrer Cuzick model (a risk assessment model) the patient's lifetime risk is 7.2% and her 10 year risk is 5.0%. According to the ACR, ACS, and NCCN guidelines, an annual breast MRI exam along with mammogram is recommended if the patient's lifetime risk is 20% or greater. This exam was interpreted at Station ID: [id number]. NOTE: For mammograms, a report in lay terms will be sent to the patient. Approximately 15% of breast malignancies will not be visualized mammographically. In the management of a palpable breast mass, a negative mammogram must not discourage biopsy of a clinically suspicious lesion. Electronically Signed By: Khoa wyatt/jose:09/06/2023 14:13:05 letter sent: Normal Exam ACR BI-RADS Category 1: Negative [id number]
--- NOTE | 2023-09-06 11:14 | DI.RAD.S_ITS ---
Bone Density Report Name: MANUEL BEAVER Age: 73 Sex: Female Ethnicity: White Date of : 1950 Indication: postmenopausal; screening for osteoporosis; Referring Provider: MERARY HUERTA Study: Bone densitometry was performed. Exam Date: September 06, 2023 Accession number: [id number] Bone Density: Region BMD T-score Z-score Classification AP Spine(L1, L3) 1.103 0.8 3.0 Normal Femoral Neck (Left) 0.658 -1.7 0.2 Osteopenia Total Hip (Left) 0.799 -1.2 0.4 Osteopenia Femoral Neck (Right) 0.675 -1.6 0.3 Osteopenia Total Hip (Right) 0.796 -1.2 0.4 Osteopenia Total Hip Mean 0.797 -1.2 0.4 Osteopenia World Health Organization criteria for BMD impression classify patients as: Normal (T-score at or above -1.0), Osteopenia (T-score between -1.0 and -2.5), or Osteoporosis (T-score at or below -2.5). 10-year Fracture Risk(1): Major Osteoporotic Fracture 13% Hip Fracture 3.0% Reported Risk Factors: [place] (), Neck BMD=0.658, BMI=22.7, alcohol use (1) FRAX(R) Version 3.08. Fracture probability calculated for an untreated patient. Fracture probability may be lower if the patient has received treatment. Impression: The patient has low bone mass, based on the Left Femoral Neck T-score. The patient has an estimated ten-year risk of hip fracture of 3% and an estimated ten-year risk of major fracture of 13%, based on the WHO FRAX algorithm. The patient has risk factors, including: excessive alcohol use. Discussion: BONE DENSITY IS LOW AT ONE OR MORE SKELETAL SITES. THE PATIENT'S BMD AND CLINICAL RISK FACTORS CONTRIBUTE TO THIS PATIENT'S INCREASED RISK OF FRACTURE. This patient's lowest T-score is low at one or more skeletal sites. It meets the World Health Organization's (WHO) criteria for low bone mass (T-score between -1.0 and -2.5). The patient's 10-year risk of hip fracture as calculated by FRAX exceeds the threshold where pharmacological therapy is recommended by the National Osteoporosis Foundation (NOF). However, all treatment decisions require clinical judgment and consideration of individual patient factors, including patient preferences, comorbidities, previous drug use, risk factors not captured in the FRAX model (e.g., frailty, falls, vitamin D deficiency, increased bone turnover, interval significant decline in bone density) and possible under or overestimation of fracture risk by FRAX. The patient should follow a healthful lifestyle (good nutrition with adequate calcium and vitamin D, and appropriate weight-bearing exercise). Follow-Up: Consider a repeat BMD and Vertebral Fracture Assessment (VFA) exam in 2 years or sooner if medically necessary, to reassess this patient's status. Reported by: DESI GUAN M.D. on 09/06/2023 11:46:00 AM.
== END ==
PROVIDERS: Family Provider Student in an Organized Health Care Education/Training Program; PCP Student in an Organized Health Care Education/Training Program; Referring Provider Internal Medicine; Visit Provider Internal Medicine
DX: Z12.31 Encounter for screening mammogram for malignant neoplasm of breast (principal); Z13.820 Encounter for screening for osteoporosis; M85.852 Other specified disorders of bone density and structure, left thigh; Z78.0 Asymptomatic menopausal state; Z80.3 Family history of malignant neoplasm of breast
CPT/HCPCS: 77063; 77067; 77080

== ENCOUNTER → 2025-01-12 13:39 | Outpatient (CLI) | payer MEDICARE, SELFPAY ==
--- NOTE | 2025-01-12 13:41 | DI.US.S_ITS ---
PROCEDURE: US CAROTID DOPPLER BI INDICATIONS: Carotid stenosis screen TECHNIQUE: Color and pulse Doppler interrogation was performed of both carotid systems, with image documentation and velocity measurements. COMPARISON: None. FINDINGS: Stenosis calculations are based on SRU (Society of Radiologists in Ultrasound) criteria. Right side: Brachial blood pressure: 110/66 mm Hg. Common carotid artery peak systolic velocity: 64 cm/sec. Internal carotid artery peak systolic velocity: 85 cm/sec. Internal carotid artery end diastolic velocity: 25 cm/sec. External carotid artery peak systolic velocity: 76 cm/sec. ICA/CCA peak systolic ratio: 1.3 . Rodriguez scale imaging description: Mild atherosclerotic plaque Percent internal carotid artery stenosis: Less than 50%. Vertebral artery: Flow direction is antegrade. Left side: Brachial blood pressure: 111/71 mm Hg. Common carotid artery peak systolic velocity: 60 cm/sec. Internal carotid artery peak systolic velocity: 57 cm/sec. Internal carotid artery end diastolic velocity: 17 cm/sec. External carotid artery peak systolic velocity: 61 cm/sec. ICA/CCA peak systolic ratio: 0.9 . Rodriguez scale imaging description: Mild atherosclerotic plaque Percent internal carotid artery stenosis: Less than 50%. Vertebral artery: Flow direction is antegrade. IMPRESSION: 1. In the right carotid artery, there is less than 50% stenosis based on peak systolic velocity criteria. 2. In the left carotid artery, there is less than 50% stenosis based on peak systolic velocity criteria. 3. Antegrade vertebral arteries. Approved by: Dheeraj Claire M.D. on 01/12/2025 at 20:48
== END ==
PROVIDERS: Family Provider Student in an Organized Health Care Education/Training Program; PCP Student in an Organized Health Care Education/Training Program; Referring Provider Student in an Organized Health Care Education/Training Program; Visit Provider Student in an Organized Health Care Education/Training Program
DX: Z13.6 Encounter for screening for cardiovascular disorders (principal); I65.23 Occlusion and stenosis of bilateral carotid arteries; E78.00 Pure hypercholesterolemia, unspecified
CPT/HCPCS: 93880